=== PATIENT | male | born 1945 | race Caucasian/White ===

== ENCOUNTER 2016-04-27 05:28 | Inpatient (IN) | payer MEDICARE, BC ==
[~2016-04-27] VITALS: Ht 180.3 cm; Wt 100.9 kg
[~2016-04-27 05:28] MED LIST: CHOL20004 PO; CRESTOR5 MG PO; LECI400C PO; LISD50CA2 PO; NITR0.4T SL; OMEG300C PO; SAW100PO MC; TAMS0.4C2 PO; TEST200V3 IM; VITA100T PO
[2016-04-27] MEDS ORDERED: ACETAMINOPHEN 500 MG TABLET PO ONE (06:15)
[2016-04-27] MEDS ORDERED: IV NORMAL SALINE 1000ML BAG 1,000 ML IV SCH ×3 (06:15→13:30)
[2016-04-27] MEDS ORDERED: LIDOCAINE 2% JELLY 6ML IN APPLICATOR. MM ONE (06:30)
[2016-04-27] MEDS: FENTANYL PF 100 MCG/2 ML VIAL. IV PRN ×3 (06:31→20:27)
--- NOTE | 2016-04-27 06:32 | ED.ADGEN ---
Past Medical History Past Medical History: No Pertinent History Past Surgical History: Other Additional Past Surgical Histo: stent Alcohol Use: None Drug Use: None Adult General Chief Complaint Chief Complaint: ABDOMINAL PAIN HPI HPI Patient is a 70 year old man, history of renal calculi, urethral stricture, status post a urethral dilatation last week, who presents emergency Department with complaint of urinary retention and abdominal pain. Patient states that about 4 PM yesterday he began experiencing severe pain in his urethra, has been able to urinate since 4 PM yesterday. He states that he feels as though a stone is stuck in his urethra. He has been experiencing nausea, abdominal distention, abdominal pain, fever to 101.4. Denies any chest pain or shortness of breath, any vomiting, any diarrhea, states that previously he was voiding without issue , before that he had been self cathetering for approximately a month. Procedure was performed by Dr. Venecia Jansen of urology at , he has not yet spoken with her office. Patient has not taking anything yet for fever or pain. Review of Systems Review of Systems Constitutional: Fever and chills since yesterday afternoon. Eyes: Denies change in visual acuity. [] HENT: Denies nasal congestion or sore throat. [] Respiratory: Denies cough or shortness of breath. [] Cardiovascular: Denies chest pain or edema. [] GI: Abdominal pain and distention, nausea, no vomiting, bloody stools or diarrhea. : Unable to pass urine since 4 PM yesterday. Musculoskeletal: Denies back pain or joint pain. [] Integument: Denies rash. [] Neurologic: Denies headache, focal weakness or sensory changes. [] Endocrine: Denies polyuria or polydipsia. [] Lymphatic: Denies swollen glands. [] Psychiatric: Denies depression or anxiety. [] Current Medications Current Medications Current Medications Medications (Trade) Dose Ordered Sig/Nancy Start Time Stop Time Status Last Admin Dose Admin Acetaminophen (Tylenol) 1,000 mg 1X ONCE 04/27/16 06:15 04/27/16 06:16 DC 04/27/16 06:30 1,000 MG Ceftriaxone Sodium (Rocephin 1gm Ivpb For Omni) 50 ml @ 100 mls/hr 1X ONCE 04/27/16 07:30 04/27/16 07:59 DC 04/27/16 08:15 100 MLS/HR Fentanyl Citrate 25 mcg 25 mcg PRN Q15MIN PRN 04/27/16 06:15 04/28/16 06:14 04/27/16 06:31 25 MCG Lidocaine HCl 1 benson 1 benson 1X ONCE 04/27/16 06:30 04/27/16 06:31 DC 04/27/16 06:30 1 BENSON Sodium Chloride (Iv Sodium Chloride 0.9% 1000ml Bag) 1,000 ml @ 1,000 mls/hr Q1H 04/27/16 06:15 04/27/16 07:14 DC 04/27/16 06:49 1,000 MLS/HR Allergies Allergies Allergies Uncoded Allergies Type Severity Reaction Last Updated Verified ERYTHROMYCIN Allergy Intermediate Hives 08/05/14 Physical Exam Physical Exam Constitutional: Well developed, well nourished, is diaphoretic, uncomfortable in appearance. HENT: Normocephalic, atraumatic, bilateral external ears normal, oropharynx moist, no oral exudates, nose normal. [] Eyes: PERRLA, EOMI, conjunctiva normal, no discharge. [] Neck: Normal range of motion, no tenderness, supple, no stridor. [] Cardiovascular:Heart rate regular rhythm, no murmur, S1, S2, no rubs or gallops , mildly tachycardic. [] Lungs & Thorax: Diminished breath sounds at bases bilaterally, no rhonchi, rales or wheezing identified. No chest wall crepitus or tenderness. [] Abdomen: Bowel sounds normal, patient's lower abdomen is firm and distended, with palpable bladder, tenderness to palpation, with examination of the penis, overflow incontinence occurs, no purulent discharge or drainage, no evidence of injury or trauma to the urethra glands are visible portions of the penis, patient is circumcised. No masses, no pulsatile masses. [] Skin: Warm, dry, no erythema, no rash. [] Back: No tenderness, no CVA tenderness. [] Extremities: No tenderness, no cyanosis, no clubbing, ROM intact, no edema. [] Neurologic: Alert and oriented X 3, normal motor function, normal sensory function, no focal deficits noted. [] Psychologic: Affect normal, judgement normal, mood normal. [] Current Patient Data Vital Signs Vital Signs Date Time Temp Pulse Resp B/P Pulse Ox O2 Delivery O2 Flow Rate FiO2 04/27/16 08:30 92 18 126/66 94 Room Air 04/27/16 05:40 101.7 101.7 Lab Values Laboratory Tests Test 04/27/16 05:55 04/27/16 06:00 White Blood Count 16.7x10^3/uL (4.0-11.0) H Red Blood Count 6.49x10^6/uL (4.30-5.70) H Hemoglobin 18.7g/dL (13.0-17.5) H Hematocrit 54.0% (39.0-53.0) H Mean Corpuscular Volume 83fL (79-100) Mean Corpuscular Hemoglobin 29pg (25-35) Mean Corpuscular Hemoglobin Concent 35g/dL (31-37) Red Cell Distribution Width 14.7% (11.5-14.5) H Platelet Count 141x10^3/uL (140-400) Neutrophils (%) (Auto) 91% (31-73) H Lymphocytes (%) (Auto) 1% (24-48) L Monocytes (%) (Auto) 7% (0-9) Eosinophils (%) (Auto) 0% (0-3) Basophils (%) (Auto) 1% (0-3) Neutrophils # (Auto) 15.1x10^3uL (1.8-7.7) H Lymphocytes # (Auto) 0.2x10^3/uL (1.0-4.8) L Monocytes # (Auto) 1.2x10^3/uL (0.0-1.1) H Eosinophils # (Auto) 0.0x10^3/uL (0.0-0.7) Basophils # (Auto) 0.1x10^3/uL (0.0-0.2) Segmented Neutrophils % 93% (35-66) H Lymphocytes % 3% (24-48) L Monocytes % 4% (0-10) Platelet Estimate Increased (ADEQUATE) Sodium Level 140mmol/L (136-145) Potassium Level 4.0mmol/L (3.5-5.1) Chloride Level 102mmol/L (98-107) Carbon Dioxide Level 25mmol/L (21-32) Anion Gap 13 (6-14) Blood Urea Nitrogen 25mg/dL (8-26) Creatinine 1.2mg/dL (0.7-1.3) Estimated GFR (Cockcroft-Gault) 60.0 BUN/Creatinine Ratio 21 (6-20) H Glucose Level 241mg/dL (70-99) H Calcium Level 9.3mg/dL (8.5-10.1) Total Bilirubin 1.0mg/dL (0.2-1.0) Aspartate Amino Transferase (AST) 44U/L (15-37) H Alanine Aminotransferase (ALT) 57U/L (16-63) Alkaline Phosphatase 78U/L (46-116) Total Protein 7.5g/dL (6.4-8.2) Albumin 4.0g/dL (3.4-5.0) Albumin/Globulin Ratio 1.1 (1.0-1.7) Urine Collection Type Unknown Urine Color Yellow Urine Clarity Cloudy Urine pH 7.0 Urine Specific [place] 1.020 Urine Protein 30mg/dL (NEG-TRACE) Urine Glucose (UA) 500mg/dL (NEG) Urine Ketones (Stick) Negativemg/dL (NEG) Urine Blood Large (NEG) Urine Nitrite Negative (NEG) Urine Bilirubin Negative (NEG) Urine Urobilinogen Dipstick 0.2mg/dL (0.2 mg/dL) Urine Leukocyte Esterase Large (NEG) Urine RBC 20-40/HPF (0-2) Urine WBC 20-40/HPF (0-4) Urine Squamous Epithelial Cells None/LPF Urine Bacteria Many/HPF (0-FEW) Laboratory Tests 04/27/16 05:55 Laboratory Tests 04/27/16 05:55 EKG EKG ECG: Sinus rhythm, heart rate 89 bpm, no ectopy. As interpreted by me. Radiology/Procedures Radiology/Procedures [] [facility] [address] [place] [address] IMAGING REPORT Signed PATIENT: FATOUMATA AMATO ACCOUNT: [id number] : 1945 LOCATION: ER AGE: 70 SEX: M EXAM STATUS: REG ER ORD. PHYSICIAN: DESEAN PASTOR DO REASON: Abd/flank pain/fever/ urinary retention/hx renal calculi PROCEDURE: ABDOMEN PELVIS WO CONTRAST EXAM: CT abdomen/pelvis without contrast. HISTORY: Abdominal pain, history of renal stones, urinary retention. TECHNIQUE: Computed tomography of the abdomen and pelvis was performed without intravenous contrast. COMPARISON: 11/27/2012. FINDINGS: Lung windows through the visualized portions of the bases reveal mild centrilobular emphysema. There is calcified granuloma in the lingula. There are atherosclerotic calcifications of the coronary arteries. Bone windows reveal no suspicious lesions. A cyst at the lower pole left kidney measures 15 mm. There is a 4 mm calculus in the left renal lower pole. There are no ureteral calculi or hydronephrosis. The bladder contains a Oleary catheter. The prostate is mildly enlarged for patient age. The appendix is not inflamed. A small umbilical hernia contains only fat. There is no obstruction. There are no pathologically enlarged lymph nodes. The liver, spleen and adrenal glands are unremarkable. Scattered calcifications in the pancreatic parenchyma indicate chronic pancreatitis. The pancreatic duct does not appear dilated. There is dense material at the gallbladder fundus. There is no pericholecystic inflammation. IMPRESSION: 1. 4 mm left renal calculus. No ureteral calculi. 2. Dense material at the gallbladder fundus. This may be cholelithiasis or sludge. Sonography could further differentiate if there is persistent concern. 3. Changes of chronic pancreatitis. 4. Small umbilical hernia containing only fat. 5. At least mild centrilobular emphysema in the lung bases. *One or more of the following individualized dose reduction techniques were utilized for this examination: 1. Automated exposure control. 2. Adjustment of the mA and/or kV according to patient size. 3. Use of iterative reconstruction technique. DICTATED and SIGNED BY: JAKE PETERSON MD DATE: 04/27/16 0742 CC: DESEAN PASTOR DO; GO TY ~ Course & Med Decision Making Course & Med Decision Making Pertinent Labs and Imaging studies reviewed. (See chart for details) Urojet injected, patient's Oleary catheter placed without issue in the ED, more than 500 out in the first 40 minutes. Urinalysis reveals 20-40 wbc's and rbc's and many bacteria. Leukocytosis noted with a white count of 16.7, noted to have elevated glucose at 241, patient has no history of diabetes, no evidence of acidosis or renal insufficiency. Did discuss findings as above patient, was initiated on ceftriaxone in the emergency department. I did attempt to speak with the patient's urologist, Dr. Jansen, however she is currently out of the area, and is being covered by Dr. Boyle of urology. He did not have access to records at this time. I did discuss the patient's stated history, and current presentation, at this point there does not appear any indication for transfer or other intervention at this time, we'll admit the patient to [facility] for continued IV antibiotics and monitoring, now there is resolution of the urinary retention, I believe that the leukocytosis should clear promptly, ceftriaxone is being administered this time. Dr. Guzman has no additional recommendations at this point. Patient is agreeable plan for admission to [facility], is now resting much more comfortably, heart rate is in the 80s, blood pressure 120s to 130s over 60s and 70s. Findings as above discussed with Dr. Lew of internal medicine, patient accepted to his service as a full admission to the medical surgical floor, consultation for urology placed to his request along with bridge orders. Dragon Disclaimer Dragon Disclaimer This electronic medical record was generated, in whole or in part, using a voice recognition dictation system. Departure Impression: Primary Impression: Pyelonephritis Disposition: ADMITTED INPATIENT Admitting Physician: Juwan Lew Condition: IMPROVED DESEAN PASTOR DO Apr 27, 2016 06:32
[2016-04-27 06:38] LABS: BASO # 0.1 x10^3/uL (0.0-0.2); BASO % 1 % (0-3); EOS % 0 % (0-3); HEMOGLOBIN 18.7 g/dL (13.0-17.5); LYMPH # 0.2 x10^3/uL (1.0-4.8); LYMPH % 1 % (24-48); MEAN CORPUSCULAR HEMOGLOBIN 29 pg (25-35); MEAN CORPUSCULAR HGB CONC 35 g/dL (31-37); MEAN CORPUSCULAR VOLUME 83 fL (79-100); MONO % 7 % (0-9); NEUT % 91 % (31-73); PLATELET COUNT 141 x10^3/uL (140-400); RED BLOOD COUNT 6.49 x10^6/uL (4.30-5.70); RED CELL DISTRIBUTION WIDTH 14.7 % (11.5-14.5); WHITE BLOOD COUNT 16.7 x10^3/uL (4.0-11.0)
[2016-04-27 06:42] LABS: CALCIUM 9.3 mg/dL (8.5-10.1); CREATININE 1.2 mg/dL (0.7-1.3)
[2016-04-27 06:47] LABS: ALBUMIN/GLOBULIN RATIO 1.1 (1.0-1.7); TOTAL PROTEIN 7.5 g/dL (6.4-8.2)
[2016-04-27 07:18] LABS: BILIRUBIN,URINE NEGATIVE (NEG); GLUCOSE,URINE 500 mg/dL (NEG); NITRITE,URINE NEGATIVE (NEG); PROTEIN,URINE 30 mg/dL (NEG-TRACE); UROBILINOGEN,URINE 0.2 mg/dL (0.2 mg/dL)
[2016-04-27 07:28] LABS: RBC,URINE 20-40 /HPF (0-2)
[2016-04-27 07:29] LABS: BACTERIA,URINE MANY /HPF (0-FEW); WBC,URINE 20-40 /HPF (0-4)
[2016-04-27] MEDS ORDERED: CEFTRIAXONE 1GM IVPB FOR OMNI 50 ML IV ONE (07:30)
--- NOTE | 2016-04-27 07:51 | RAD ---
EXAM: CT abdomen/pelvis without contrast. HISTORY: Abdominal pain, history of renal stones, urinary retention. TECHNIQUE: Computed tomography of the abdomen and pelvis was performed without intravenous contrast. COMPARISON: 11/27/2012. FINDINGS: Lung windows through the visualized portions of the bases reveal mild centrilobular emphysema. There is calcified granuloma in the lingula. There are atherosclerotic calcifications of the coronary arteries. Bone windows reveal no suspicious lesions. A cyst at the lower pole left kidney measures 15 mm. There is a 4 mm calculus in the left renal lower pole. There are no ureteral calculi or hydronephrosis. The bladder contains a Oleary catheter. The prostate is mildly enlarged for patient age. The appendix is not inflamed. A small umbilical hernia contains only fat. There is no obstruction. There are no pathologically enlarged lymph nodes. The liver, spleen and adrenal glands are unremarkable. Scattered calcifications in the pancreatic parenchyma indicate chronic pancreatitis. The pancreatic duct does not appear dilated. There is dense material at the gallbladder fundus. There is no pericholecystic inflammation. IMPRESSION: 1. 4 mm left renal calculus. No ureteral calculi. 2. Dense material at the gallbladder fundus. This may be cholelithiasis or sludge. Sonography could further differentiate if there is persistent concern. 3. Changes of chronic pancreatitis. 4. Small umbilical hernia containing only fat. 5. At least mild centrilobular emphysema in the lung bases. *One or more of the following individualized dose reduction techniques were utilized for this examination: 1. Automated exposure control. 2. Adjustment of the mA and/or kV according to patient size. 3. Use of iterative reconstruction technique.
[2016-04-27 07:57] LABS: PLT ESTIMATE INCREASED (ADEQUATE)
[2016-04-27] MEDS ORDERED: MORPHINE SULFATE 4 MG/ML DISP.SYRIN. IV PRN (09:45)
[2016-04-27] MEDS ORDERED: ACETAMINOPHEN 325 MG TABLET. PO PRN ×2 (09:45→16:00)
[2016-04-27] MEDS ORDERED: ONDANSETRON PF 4 MG/2 ML VIAL. IV PRN ×2 (09:45→16:00)
--- NOTE | 2016-04-27 14:20 | PDOC2 ---
GI CONSULT Reason For Consult: Abdominal pain HPI: HPI: 70 y/o male admitted through the ER where he was evaluated for urinary retention and fever. H/o urethral dilation at [facility] in 02/2016. Reports suprapubic discomfort and inability to urinate since 4:00 p.m. yesterday, relieved w/ catheter in ER. Labs significant for WBC 16.7 and UA w/ blood and WBCs. CT w/o contrast showed 4 mm left renal calculus, dense material at the gallbladder fundus (cholelithiasis or sludge), changes of chronic pancreatitis, small umbilical hernia containing only fat, and mild emphysema in the lung bases. Admitted on IV Rocephin, urology consult requested. GI consult requested for abd pain. GI history significant for GERD and Nunez's esophagus w/ last EGD in 08/2014. He takes omeprazole QD w/ rare breakthrough heartburn although he did have some during the night recently. Some issues w/ occasional constipation (in fact took Fleets enema prior to coming to ER in hopes of relieving some suprapubic discomfort). Colonoscopy reportedly normal in 2014 as well (unable to view procedure report). Occasionally has a RUQ/right-sided "ache" (specifies "not pain") that occurs randomly; he has previously attributed this to "liver pain." Additional h/o Hep C s/p Harvoni treatment w/ undetectable viral load. Denies previous pancreatitis but did used to drink significantly. Currently denies abdominal pain. Has some suprapubic discomfort that is much less bothersome now. No n/v, weight loss, change in appetite, diarrhea, hematochezia/melena. Occasionally has flank pain (occurs bilaterally). PMH: PMH: Nunez's esophagus/GERD, Hep C s/p Harvoni tx w/ undetectable viral load, constipation, CAD s/p stent, angina, BPH, back pain, HLD, pneumothorax, liver biopsy (2015: chronic hepatitis, moderate spotty lobular necroinflammatory activity and early bridging septal fibrosis, grade 3/4, steatosis), umbilical hernia repair w/ mesh, urethral dilation FH: Family History: No pertinent hx Social History: Smoke: <1 pack per day ALCOHOL: other (currently drinks once monthly or less (2-4 beers), previously drank more frequently) Drugs: None ROS: GEN: +fevers HEENT: Denies blurred vision, sore throat CV: Denies chest pain RESP: Denies shortness of air, cough GI: Per HPI : +urinary retention ENDO: Denies weight changes NEURO: Denies confusion, dizziness MSK: Denies weakness, joint pain/swelling SKIN: Denies jaundice, pruritus VItals: Vitals: Vital Signs Date Time Temp Pulse Resp B/P Pulse Ox O2 Delivery O2 Flow Rate FiO2 04/27/16 12:46 20 97 Room Air 04/27/16 09:40 94 117/73 04/27/16 05:40 101.7 101.7 Labs: Labs: Laboratory Tests Test 04/27/16 05:55 04/27/16 06:00 White Blood Count 16.7x10^3/uL (4.0-11.0) Red Blood Count 6.49x10^6/uL (4.30-5.70) Hemoglobin 18.7g/dL (13.0-17.5) Hematocrit 54.0% (39.0-53.0) Mean Corpuscular Volume 83fL (79-100) Mean Corpuscular Hemoglobin 29pg (25-35) Mean Corpuscular Hemoglobin Concent 35g/dL (31-37) Red Cell Distribution Width 14.7% (11.5-14.5) Platelet Count 141x10^3/uL (140-400) Neutrophils (%) (Auto) 91% (31-73) Lymphocytes (%) (Auto) 1% (24-48) Monocytes (%) (Auto) 7% (0-9) Eosinophils (%) (Auto) 0% (0-3) Basophils (%) (Auto) 1% (0-3) Neutrophils # (Auto) 15.1x10^3uL (1.8-7.7) Lymphocytes # (Auto) 0.2x10^3/uL (1.0-4.8) Monocytes # (Auto) 1.2x10^3/uL (0.0-1.1) Eosinophils # (Auto) 0.0x10^3/uL (0.0-0.7) Basophils # (Auto) 0.1x10^3/uL (0.0-0.2) Segmented Neutrophils % 93% (35-66) Lymphocytes % 3% (24-48) Monocytes % 4% (0-10) Platelet Estimate Increased (ADEQUATE) Sodium Level 140mmol/L (136-145) Potassium Level 4.0mmol/L (3.5-5.1) Chloride Level 102mmol/L (98-107) Carbon Dioxide Level 25mmol/L (21-32) Anion Gap 13 (6-14) Blood Urea Nitrogen 25mg/dL (8-26) Creatinine 1.2mg/dL (0.7-1.3) Estimated GFR (Cockcroft-Gault) 60.0 BUN/Creatinine Ratio 21 (6-20) Glucose Level 241mg/dL (70-99) Calcium Level 9.3mg/dL (8.5-10.1) Total Bilirubin 1.0mg/dL (0.2-1.0) Aspartate Amino Transf (AST/SGOT) 44U/L (15-37) Alanine Aminotransferase (ALT/SGPT) 57U/L (16-63) Alkaline Phosphatase 78U/L (46-116) Total Protein 7.5g/dL (6.4-8.2) Albumin 4.0g/dL (3.4-5.0) Albumin/Globulin Ratio 1.1 (1.0-1.7) Urine Collection Type Unknown Urine Color Yellow Urine Clarity Cloudy Urine pH 7.0 Urine Specific [place] 1.020 Urine Protein 30mg/dL (NEG-TRACE) Urine Glucose (UA) 500mg/dL (NEG) Urine Ketones (Stick) Negativemg/dL (NEG) Urine Blood Large (NEG) Urine Nitrite Negative (NEG) Urine Bilirubin Negative (NEG) Urine Urobilinogen Dipstick 0.2mg/dL (0.2 mg/dL) Urine Leukocyte Esterase Large (NEG) Urine RBC 20-40/HPF (0-2) Urine WBC 20-40/HPF (0-4) Urine Squamous Epithelial Cells None/LPF Urine Bacteria Many/HPF (0-FEW) Allergies: Coded Allergies: erythromycin base (Verified Allergy, Intermediate, Hives, 04/27/16) Medications: Current Medications Medications (Trade) Dose Ordered Sig/Nancy Route PRN Reason Start Time Stop Time Status Last Admin Dose Admin Fentanyl Citrate 25 mcg 25 mcg PRN Q15MIN PRN IV PAIN GREATER THAN 3/10 04/27/16 06:15 04/28/16 06:14 04/27/16 12:46 Sodium Chloride (Iv Sodium Chloride 0.9% 1000ml Bag) 1,000 ml @ 1,000 mls/hr Q1H IV 04/27/16 06:15 04/27/16 07:14 DC 04/27/16 06:49 Acetaminophen (Tylenol) 1,000 mg 1X ONCE PO 04/27/16 06:15 04/27/16 06:16 DC 04/27/16 06:30 Lidocaine HCl 1 benson 1 benson 1X ONCE MM 04/27/16 06:30 04/27/16 06:31 DC 04/27/16 06:30 Ceftriaxone Sodium (Rocephin 1gm Ivpb For Omni) 50 ml @ 100 mls/hr 1X ONCE IV 04/27/16 07:30 04/27/16 07:59 DC 04/27/16 08:15 Imaging: Imaging: CT A/P w/o contrast 04/27/16 IMPRESSION: 1. 4 mm left renal calculus. No ureteral calculi. 2. Dense material at the gallbladder fundus. This may be cholelithiasis or sludge. Sonography could further differentiate if there is persistent concern. 3. Changes of chronic pancreatitis. 4. Small umbilical hernia containing only fat. 5. At least mild centrilobular emphysema in the lung bases. PE: GEN: NAD, pleasant, talkative HEENT: Atraumatic, PERRL LUNGS: CTAB anteriorly HEART: RRR ABD: soft, non-tender, BS+, ?distended EXTREMITY: No edema SKIN: No rashes, no jaundice NEURO/PSYCH: A & O 3 A/P: A/P: Urinary retention, leukocytosis, fever, suprapubic pain -on IV Rocephin, urology consulted -pain improved w/ catheter Abnormal CT A/P -density in GB fundus (cholelithiasis or sludge), chronic pancreatitis -reports random right-sided ache -h/o significant alcohol consumption, less so now H/o GERD, Nunez's -on PPI at home w/ rare breakthrough heartburn H/o Hep C, treated CRC screen -normal colonoscopy 2014 -- Await urologic workup. Note currently NPO, but would restart PPI QD w/ eating. Doesn't seem to have significant GB symptoms. HIREN ZAMUDIO Apr 27, 2016 14:20
[2016-04-27 15:00] VITALS: BP 149/57
[2016-04-27] MEDS ORDERED: DEXTROSE 50% 25 GM / 50ML DISP.SYRIN. IV PRN (16:00)
[2016-04-27] MEDS ORDERED: hydrALAZINE 20 MG/ML VIAL. IVP PRN (16:00)
[2016-04-27] MEDS ORDERED: HYDROCODONE/APAP 5/325MG TABLET. PO PRN (16:00)
[2016-04-27] MEDS ORDERED: ALBUTEROL SULFATE 2.5 MG/3 ML NEBU. NEB PRN (16:00)
[2016-04-27] MEDS ORDERED: CEFTRIAXONE SODIUM 1 GM in IV NORMAL SALINE 50ML 50 ML IV SCH (16:00)
--- NOTE | 2016-04-27 16:04 | PDOC1 ---
History and Physical Social History Smoke: <1 pack per day ALCOHOL: other (currently drinks once monthly or less (2-4 beers), previously drank more frequently) Drugs: None Current Problem List Problem List Problems Medical Problems: (1) Pyelonephritis Status: Acute Current Medications Current Medications Current Medications Medications (Trade) Dose Ordered Sig/Nancy Start Time Stop Time Status Last Admin Dose Admin Acetaminophen (Tylenol) 650 mg PRN Q4HRS PRN 04/27/16 09:45 04/28/16 09:44 Ceftriaxone Sodium/Sodium Chloride (Rocephin/Iv Sodium Chloride 0.9% 50ml) 50 ml @ 100 mls/hr Q24H 04/28/16 08:00 Ceftriaxone Sodium 50 ml @ 100 mls/hr 1X ONCE 04/27/16 07:30 04/27/16 07:59 DC 04/27/16 08:15 100 MLS/HR Fentanyl Citrate (Fentanyl 2ml Vial) 25 mcg PRN Q15MIN PRN 04/27/16 06:15 04/28/16 06:14 04/27/16 12:46 25 MCG Fentanyl Citrate 25 mcg 25 mcg PRN Q2HR PRN 04/27/16 13:30 Lidocaine HCl 1 benson 1 benson 1X ONCE 04/27/16 06:30 04/27/16 06:31 DC 04/27/16 06:30 1 BENSON Morphine Sulfate 4 mg PRN Q2HR PRN 04/27/16 09:45 04/28/16 09:44 Ondansetron HCl (Zofran) 4 mg PRN Q8HRS PRN 04/27/16 09:45 04/28/16 09:44 Sodium Chloride (Iv Sodium Chloride 0.9% 1000ml Bag) 1,000 ml @ 75 mls/hr [id number] 04/27/16 13:30 Allergies Allergies Allergies Coded Allergies Type Severity Reaction Last Updated Verified erythromycin base Allergy Intermediate Hives 04/27/16 Yes ROS Review of System CONSTITUTIONAL: No fever or chills EYES: No recent changes SKIN: No rash or itching CARDIOVASCULAR: No chest pain, syncope, palpitations, or edema RESPIRATORY: No SOB or cough GASTROINTESTINAL: abdominal pain NEUROLOGICAL: No headaches or weakness ENDOCRINE: No cold or heat intolerance GENITOURINARY: No urgency or frequency of urination MUSCULOSKELETAL: No back pain or joint pain LYMPHATICS: No enlarged lymph nodes PSYCHIATRIC: No anxiety or depression Physical Exam Physical Exam GEN.: No apparent distress. Alert and oriented. HEENT: Head is normocephalic, atraumatic NECK: Supple. no jvd LUNGS: Clear to auscultation. normal air flow HEART: RRR, S1, S2 present. Peripheral pulses intact ABDOMEN: Soft, nontender. Positive bowel sounds. EXTREMITIES: Without any cyanosis. NEUROLOGIC: Normal speech, normal tone PSYCHIATRIC: Normal affect, normal mood. SKIN: No visible ulceration. Vitals Vitals Vital Signs Date Time Temp Pulse Resp B/P Pulse Ox O2 Delivery O2 Flow Rate FiO2 04/27/16 12:46 20 97 Room Air 04/27/16 09:40 94 117/73 04/27/16 05:40 101.7 101.7 Labs Labs Laboratory Tests Test 04/27/16 05:55 04/27/16 06:00 White Blood Count 16.7x10^3/uL (4.0-11.0) Red Blood Count 6.49x10^6/uL (4.30-5.70) Hemoglobin 18.7g/dL (13.0-17.5) Hematocrit 54.0% (39.0-53.0) Mean Corpuscular Volume 83fL (79-100) Mean Corpuscular Hemoglobin 29pg (25-35) Mean Corpuscular Hemoglobin Concent 35g/dL (31-37) Red Cell Distribution Width 14.7% (11.5-14.5) Platelet Count 141x10^3/uL (140-400) Neutrophils (%) (Auto) 91% (31-73) Lymphocytes (%) (Auto) 1% (24-48) Monocytes (%) (Auto) 7% (0-9) Eosinophils (%) (Auto) 0% (0-3) Basophils (%) (Auto) 1% (0-3) Neutrophils # (Auto) 15.1x10^3uL (1.8-7.7) Lymphocytes # (Auto) 0.2x10^3/uL (1.0-4.8) Monocytes # (Auto) 1.2x10^3/uL (0.0-1.1) Eosinophils # (Auto) 0.0x10^3/uL (0.0-0.7) Basophils # (Auto) 0.1x10^3/uL (0.0-0.2) Segmented Neutrophils % 93% (35-66) Lymphocytes % 3% (24-48) Monocytes % 4% (0-10) Platelet Estimate Increased (ADEQUATE) Sodium Level 140mmol/L (136-145) Potassium Level 4.0mmol/L (3.5-5.1) Chloride Level 102mmol/L (98-107) Carbon Dioxide Level 25mmol/L (21-32) Anion Gap 13 (6-14) Blood Urea Nitrogen 25mg/dL (8-26) Creatinine 1.2mg/dL (0.7-1.3) Estimated GFR (Cockcroft-Gault) 60.0 BUN/Creatinine Ratio 21 (6-20) Glucose Level 241mg/dL (70-99) Calcium Level 9.3mg/dL (8.5-10.1) Total Bilirubin 1.0mg/dL (0.2-1.0) Aspartate Amino Transf (AST/SGOT) 44U/L (15-37) Alanine Aminotransferase (ALT/SGPT) 57U/L (16-63) Alkaline Phosphatase 78U/L (46-116) Total Protein 7.5g/dL (6.4-8.2) Albumin 4.0g/dL (3.4-5.0) Albumin/Globulin Ratio 1.1 (1.0-1.7) Urine Collection Type Unknown Urine Color Yellow Urine Clarity Cloudy Urine pH 7.0 Urine Specific Tutor [place] 1.020 Urine Protein 30mg/dL (NEG-TRACE) Urine Glucose (UA) 500mg/dL (NEG) Urine Ketones (Stick) Negativemg/dL (NEG) Urine Blood Large (NEG) Urine Nitrite Negative (NEG) Urine Bilirubin Negative (NEG) Urine Urobilinogen Dipstick 0.2mg/dL (0.2 mg/dL) Urine Leukocyte Esterase Large (NEG) Urine RBC 20-40/HPF (0-2) Urine WBC 20-40/HPF (0-4) Urine Squamous Epithelial Cells None/LPF Urine Bacteria Many/HPF (0-FEW) Laboratory Tests Test 04/27/16 05:55 04/27/16 06:00 White Blood Count 16.7x10^3/uL (4.0-11.0) Red Blood Count 6.49x10^6/uL (4.30-5.70) Hemoglobin 18.7g/dL (13.0-17.5) Hematocrit 54.0% (39.0-53.0) Mean Corpuscular Volume 83fL (79-100) Mean Corpuscular Hemoglobin 29pg (25-35) Mean Corpuscular Hemoglobin Concent 35g/dL (31-37) Red Cell Distribution Width 14.7% (11.5-14.5) Platelet Count 141x10^3/uL (140-400) Neutrophils (%) (Auto) 91% (31-73) Lymphocytes (%) (Auto) 1% (24-48) Monocytes (%) (Auto) 7% (0-9) Eosinophils (%) (Auto) 0% (0-3) Basophils (%) (Auto) 1% (0-3) Neutrophils # (Auto) 15.1x10^3uL (1.8-7.7) Lymphocytes # (Auto) 0.2x10^3/uL (1.0-4.8) Monocytes # (Auto) 1.2x10^3/uL (0.0-1.1) Eosinophils # (Auto) 0.0x10^3/uL (0.0-0.7) Basophils # (Auto) 0.1x10^3/uL (0.0-0.2) Segmented Neutrophils % 93% (35-66) Lymphocytes % 3% (24-48) Monocytes % 4% (0-10) Platelet Estimate Increased (ADEQUATE) Sodium Level 140mmol/L (136-145) Potassium Level 4.0mmol/L (3.5-5.1) Chloride Level 102mmol/L (98-107) Carbon Dioxide Level 25mmol/L (21-32) Anion Gap 13 (6-14) Blood Urea Nitrogen 25mg/dL (8-26) Creatinine 1.2mg/dL (0.7-1.3) Estimated GFR (Cockcroft-Gault) 60.0 BUN/Creatinine Ratio 21 (6-20) Glucose Level 241mg/dL (70-99) Calcium Level 9.3mg/dL (8.5-10.1) Total Bilirubin 1.0mg/dL (0.2-1.0) Aspartate Amino Transf (AST/SGOT) 44U/L (15-37) Alanine Aminotransferase (ALT/SGPT) 57U/L (16-63) Alkaline Phosphatase 78U/L (46-116) Total Protein 7.5g/dL (6.4-8.2) Albumin 4.0g/dL (3.4-5.0) Albumin/Globulin Ratio 1.1 (1.0-1.7) Urine Collection Type Unknown Urine Color Yellow Urine Clarity Cloudy Urine pH 7.0 Urine Specific Tutor [place] 1.020 Urine Protein 30mg/dL (NEG-TRACE) Urine Glucose (UA) 500mg/dL (NEG) Urine Ketones (Stick) Negativemg/dL (NEG) Urine Blood Large (NEG) Urine Nitrite Negative (NEG) Urine Bilirubin Negative (NEG) Urine Urobilinogen Dipstick 0.2mg/dL (0.2 mg/dL) Urine Leukocyte Esterase Large (NEG) Urine RBC 20-40/HPF (0-2) Urine WBC 20-40/HPF (0-4) Urine Squamous Epithelial Cells None/LPF Urine Bacteria Many/HPF (0-FEW) VTE Prophylaxis Ordered VTE Prophylaxis Devices: Yes VTE Pharmacological Prophylaxi: Contraindicated BELA DOTY MD Apr 27, 2016 16:04
[2016-04-27] MEDS: IV NORMAL SALINE 1000ML BAG 1,000 ML IV SCH (16:15)
[2016-04-27] MEDS: INSULIN ASPART 300 UNITS/3 ML INSULN.PEN SQ SCH (17:00)
--- NOTE | 2016-04-27 18:23 | PDOC ---
Provider Note Provider Note Urology: c/c urine retention, UTI Hx: distal urethral stricture, bladder stones Patient examined, chart reviewed. IMPRESSION: -distal urethral stricture -bladder stones -UTI -s/p laser prostatectomy KU 02/17 Suggest: d/c gomez in AM treat UTI for 1 week cystoscopy if fails voiding trial f/u KU to discuss self-dilation daily for urethral stricture KIRK Porter ROY K DO Apr 27, 2016 18:23
[2016-04-27] MEDS ORDERED: ASPI81TA2 PO (18:29)
[2016-04-27] MEDS ORDERED: CRESTOR5 MG PO (18:29)
[2016-04-27] MEDS ORDERED: OMEP20CA9 PO (18:29)
[2016-04-27 19:00] VITALS: BP 135/77
--- NOTE | 2016-04-27 22:29 | HP ---
ADMIT DATE: 04/27/2016 CHIEF COMPLAINT: Abdominal pain. HISTORY OF PRESENT ILLNESS: A 70-year-old male patient with prior history of BPH, renal calculi and ureteral stricture who had a ureteral dilatation at ____ [facility] presented to the ER with complaints of abdominal pain, started yesterday evening around 4 p.m., which is severe, intractable in nature, located in the lower abdomen and also he felt like a stone is passing through and he did see 2 stones pass, however, one is stuck. He could not able to pass. As per his , the patient also developed a temperature spike, around 100.1. Denies any nausea, vomiting or any other complaints, such as sick contacts or travel history. PAST MEDICAL HISTORY: Ureteral stricture, renal stones, BPH, GERD, and hepatitis C. FAMILY HISTORY: Questionable hypertension. PERSONAL HISTORY: Smokes less than 1 pack per day. Alcohol occasionally. No substance abuse. REVIEW OF SYSTEMS: Please see my electronic H and P. PHYSICAL EXAMINATION: Please see my electronic H and P. ALLERGIES: ERYTHROMYCIN BASE. LABORATORY FINDINGS: WBC 16.7, hemoglobin is 18.7, MCV 83, platelets 141, neutrophils 15.1, and segmented 93%. Chemistry, sodium 140, potassium 4.0, chloride 102, carbon dioxide is 25, BUN is ____, creatinine is 1.2, and glucose is 241. Urine pH is 7.0, specific gravity 1.020, protein 30, glucose 500, and ketones negative. Urine blood is large, nitrites negative, bilirubin negative, and leukocyte esterase large. IMAGING STUDIES: CT of the abdomen and pelvis showed 4 mm left renal calculus, no ureteral calculi, dense ____ gallbladder fundus, changes of chronic pancreatitis, small umbilical hernia containing ____. ASSESSMENT AND PLAN: 1. Intractable lower abdominal pain due to renal calculi and ureteral stricture. Possible urinary tract infection. 2. Hyperglycemia, never been diagnosed with diabetes. 3. History of BPH. 4. Leukocytosis. PLAN: 1. He has been admitted for pain control. Currently, the patient is on fentanyl 25-50 mcg q. 2 hours as needed. 2. Oleary catheter has been placed to monitor intake and output. 3. Mild IV hydration, at least 125 mL/hour. 4. Urology has been consulted. 5. GI has been consulted. 6. Clear liquid diet. 7. Home medications reviewed and reconciled. 8. IV Rocephin 1 gram daily. 9. Supportive care. 10. I ordered a hemoglobin A1c. BELA DOTY MD DR: LUCY/meka JOB#: [id number] / [id number]
[2016-04-27 23:00] VITALS: BP 123/60
--- NOTE | 2016-04-28 00:51 | ACF ---
Admission Forms Criteria PYELONEPHRITIS, ACUTE Clinical Indications for Admission to Inpatient Care (Place 'X' for any and all applicable criteria): Admission is indicated for ANY ONE of the following 1,2,3,4,5 [ ]I. Outpatient treatment has failed or is not feasible (eg, multidrug- resistant organism).5 [ ]II. beyond 24 weeks' gestation6 [ ]III. Hemodynamic instability [ ]IV. Immunocompromised state (eg, AIDS, diabetes, sickle cell disease) [X]V. Known renal or urologic abnormalities (eg, indwelling catheter, structural abnormalities, renal calculi, urinary stent, previous urologic surgery) [ ]. Condition that requires drainage procedure, including ANY ONE of the following: [ ]a) Urinary obstruction [ ]b) Pyelitis [ ]c) Pyonephrosis [ ]d) Renal or perinephric abscess [ ]e) Emphysematous pyelonephritis 7 [ ]VII. Inpatient admission required rather than observation care (Also use Pyelonephritis, Acute: Observation Care Criteria as appropriate) because of ANY ONE of the following: [ ]a) High fever or infection requiring inpatient admission as indicated by ANY ONE of [id number] [ ]A. Documented bacteremia [ ]B. Temp>104.9 [id number] (oral) [ ]C. Temp>103.10F (oral) or <96.80F (rectal) that does not respond to all emergency treatment [ ]b) Acute renal failure [ ]c) Other significant finding or clinical condition judged not to be within the scope of observation care [ ]d) IV fluid to replace significant ongoing (eg, for over 24hrs) losses (> 3 L/m2 per day) [ ]e) Other condition,treatment or monitoring requiring inpatient admission The original [facility] content created by [employer] has been revised. The portions of the content which have been revised are identified through the use of italic text or in bold, and [facility] has neither reviewed nor approved the modified material. All other unmodified content is copyright [facility] [employer]. Please see references footnoted in the original [facility] [employer] edition 2016 Admission Criteria Met?: Yes SHMAAR LEONARD Apr 28, 2016 00:51
[2016-04-28] MEDS: IV NORMAL SALINE 1000ML BAG 1,000 ML IV SCH (01:10)
[2016-04-28] MEDS: FENTANYL PF 100 MCG/2 ML VIAL. IV PRN ×4 (01:13→17:31)
[2016-04-28 03:00] VITALS: BP 120/76
[2016-04-28 07:19] LABS: BASO % 0 % (0-3); EOS % 0 % (0-3); HEMATOCRIT 51.4 % (39.0-53.0); HEMOGLOBIN 17.4 g/dL (13.0-17.5); LYMPH # 0.3 x10^3/uL (1.0-4.8); LYMPH % 4 % (24-48); MEAN CORPUSCULAR HEMOGLOBIN 29 pg (25-35); MEAN CORPUSCULAR HGB CONC 34 g/dL (31-37); MEAN CORPUSCULAR VOLUME 85 fL (79-100); MONO % 10 % (0-9); NEUT % 86 % (31-73); PLATELET COUNT 97 x10^3/uL (140-400); RED BLOOD COUNT 6.02 x10^6/uL (4.30-5.70); RED CELL DISTRIBUTION WIDTH 14.7 % (11.5-14.5); WHITE BLOOD COUNT 7.6 x10^3/uL (4.0-11.0)
[2016-04-28 07:39] LABS: CALCIUM 8.7 mg/dL (8.5-10.1); CREATININE 1.1 mg/dL (0.7-1.3); GFR 66.4; POTASSIUM 4.4 mmol/L (3.5-5.1)
[2016-04-28 07:50] VITALS: BP 137/79
[2016-04-28] MEDS: INSULIN ASPART 300 UNITS/3 ML INSULN.PEN SQ SCH ×3 (08:00→17:00)
[2016-04-28] MEDS ORDERED: CEFTRIAXONE SODIUM 1 GM in IV NORMAL SALINE 50ML 50 ML IV SCH (08:00)
[2016-04-28 11:05] VITALS: BP 124/74
--- NOTE | 2016-04-28 12:34 | PDOC ---
PROGRESS NOTES Chief Complaint Chief Complaint 1. Abdominal pain 2. Ureteral stricture 3. Urinary retention 4. History of BPH 5. Renal Calculi 6. History of HCV History of Present Illness History of Present Illness Patient awake, alert and sitting up in bed eating breakfast when seen and examined this AM. Pt states that he is feeling better and would like to go home when possible. Pt's present and at bedside. Pt has Oleary cath in place which will be taken out this morning. ------>Cath taken out and patient urinated about and hour later with minimal pain. VSS- All questions and concerns answered and addressed. Vitals Vitals Vital Signs Date Time Temp Pulse Resp B/P Pulse Ox O2 Delivery O2 Flow Rate FiO2 04/28/16 11:05 99.5 92 18 124/74 97 Room Air 99.5 Physical Exam General: Alert, Oriented X3, Cooperative, No acute distress Heart: Regular rate, Normal S1, Normal S2, No murmurs Lungs: Clear Abdomen: Normal bowel sounds, Soft, No tenderness, No hepatosplenomegaly Extremities: No clubbing, No cyanosis, No edema, Normal pulses Skin: No rashes, No breakdown, No significant lesion Labs LABS Laboratory Tests Test 04/27/16 17:37 04/27/16 20:33 04/28/16 06:55 04/28/16 07:54 Glucose (Fingerstick) 87mg/dL (70-99) 153mg/dL (70-99) 113mg/dL (70-99) White Blood Count 7.6x10^3/uL (4.0-11.0) Red Blood Count 6.02x10^6/uL (4.30-5.70) Hemoglobin 17.4g/dL (13.0-17.5) Hematocrit 51.4% (39.0-53.0) Mean Corpuscular Volume 85fL (79-100) Mean Corpuscular Hemoglobin 29pg (25-35) Mean Corpuscular Hemoglobin Concent 34g/dL (31-37) Red Cell Distribution Width 14.7% (11.5-14.5) Platelet Count 97x10^3/uL (140-400) Neutrophils (%) (Auto) 86% (31-73) Lymphocytes (%) (Auto) 4% (24-48) Monocytes (%) (Auto) 10% (0-9) Eosinophils (%) (Auto) 0% (0-3) Basophils (%) (Auto) 0% (0-3) Neutrophils # (Auto) 6.5x10^3uL (1.8-7.7) Lymphocytes # (Auto) 0.3x10^3/uL (1.0-4.8) Monocytes # (Auto) 0.7x10^3/uL (0.0-1.1) Eosinophils # (Auto) 0.0x10^3/uL (0.0-0.7) Basophils # (Auto) 0.0x10^3/uL (0.0-0.2) Sodium Level 137mmol/L (136-145) Potassium Level 4.4mmol/L (3.5-5.1) Chloride Level 103mmol/L (98-107) Carbon Dioxide Level 26mmol/L (21-32) Anion Gap 8 (6-14) Blood Urea Nitrogen 18mg/dL (8-26) Creatinine 1.1mg/dL (0.7-1.3) Estimated GFR (Cockcroft-Gault) 66.4 Glucose Level 116mg/dL (70-99) Calcium Level 8.7mg/dL (8.5-10.1) Test 04/28/16 11:16 Glucose (Fingerstick) 118mg/dL (70-99) Review of Systems Review of Systems Patient complaint of hunger Patient complaint of fatigue Assessment and Plan Assessmemt and Plan Problems Medical Problems: (1) Pyelonephritis Status: Acute Assessment: 1. Abdominal pain 2. Ureteral stricture 3. Urinary retention 4. History of BPH 5. Renal Calculi 6. History of HCV Plan: Continue to monitor the patient per floor protocol Continue daily labs- CBC, BMP, BUN, and Cr Daily PTOT Appreciate Urology and GI input and recommendations Oleary cath out and patient urinating well Possible DC later today if ok with Urology and GI Continue IV Rocephin- Switch to PO Augmentin Continue PO Narcotics PRN for pain Continue Zofran PRN for nausea Continue IVFs at 75 cc/hr DW RN Problems: Comment Review of Relevant I have reviewed the following items justina (where applicable) has been applied. Labs Laboratory Tests Test 04/27/16 05:55 04/27/16 06:00 04/27/16 17:37 04/27/16 20:33 White Blood Count 16.7x10^3/uL (4.0-11.0) Red Blood Count 6.49x10^6/uL (4.30-5.70) Hemoglobin 18.7g/dL (13.0-17.5) Hematocrit 54.0% (39.0-53.0) Mean Corpuscular Volume 83fL (79-100) Mean Corpuscular Hemoglobin 29pg (25-35) Mean Corpuscular Hemoglobin Concent 35g/dL (31-37) Red Cell Distribution Width 14.7% (11.5-14.5) Platelet Count 141x10^3/uL (140-400) Neutrophils (%) (Auto) 91% (31-73) Lymphocytes (%) (Auto) 1% (24-48) Monocytes (%) (Auto) 7% (0-9) Eosinophils (%) (Auto) 0% (0-3) Basophils (%) (Auto) 1% (0-3) Neutrophils # (Auto) 15.1x10^3uL (1.8-7.7) Lymphocytes # (Auto) 0.2x10^3/uL (1.0-4.8) Monocytes # (Auto) 1.2x10^3/uL (0.0-1.1) Eosinophils # (Auto) 0.0x10^3/uL (0.0-0.7) Basophils # (Auto) 0.1x10^3/uL (0.0-0.2) Segmented Neutrophils % 93% (35-66) Lymphocytes % 3% (24-48) Monocytes % 4% (0-10) Platelet Estimate Increased (ADEQUATE) Sodium Level 140mmol/L (136-145) Potassium Level 4.0mmol/L (3.5-5.1) Chloride Level 102mmol/L (98-107) Carbon Dioxide Level 25mmol/L (21-32) Anion Gap 13 (6-14) Blood Urea Nitrogen 25mg/dL (8-26) Creatinine 1.2mg/dL (0.7-1.3) Estimated GFR (Cockcroft-Gault) 60.0 BUN/Creatinine Ratio 21 (6-20) Glucose Level 241mg/dL (70-99) Hemoglobin A1c 5.8% (4.8-5.6) Calcium Level 9.3mg/dL (8.5-10.1) Total Bilirubin 1.0mg/dL (0.2-1.0) Aspartate Amino Transf (AST/SGOT) 44U/L (15-37) Alanine Aminotransferase (ALT/SGPT) 57U/L (16-63) Alkaline Phosphatase 78U/L (46-116) Total Protein 7.5g/dL (6.4-8.2) Albumin 4.0g/dL (3.4-5.0) Albumin/Globulin Ratio 1.1 (1.0-1.7) Urine Collection Type Unknown Urine Color Yellow Urine Clarity Cloudy Urine pH 7.0 Urine Specific Counce 1.020 Urine Protein 30mg/dL (NEG-TRACE) Urine Glucose (UA) 500mg/dL (NEG) Urine Ketones (Stick) Negativemg/dL (NEG) Urine Blood Large (NEG) Urine Nitrite Negative (NEG) Urine Bilirubin Negative (NEG) Urine Urobilinogen Dipstick 0.2mg/dL (0.2 mg/dL) Urine Leukocyte Esterase Large (NEG) Urine RBC 20-40/HPF (0-2) Urine WBC 20-40/HPF (0-4) Urine Squamous Epithelial Cells None/LPF Urine Bacteria Many/HPF (0-FEW) Glucose (Fingerstick) 87mg/dL (70-99) 153mg/dL (70-99) Test 04/28/16 06:55 04/28/16 07:54 04/28/16 11:16 White Blood Count 7.6x10^3/uL (4.0-11.0) Red Blood Count 6.02x10^6/uL (4.30-5.70) Hemoglobin 17.4g/dL (13.0-17.5) Hematocrit 51.4% (39.0-53.0) Mean Corpuscular Volume 85fL (79-100) Mean Corpuscular Hemoglobin 29pg (25-35) Mean Corpuscular Hemoglobin Concent 34g/dL (31-37) Red Cell Distribution Width 14.7% (11.5-14.5) Platelet Count 97x10^3/uL (140-400) Neutrophils (%) (Auto) 86% (31-73) Lymphocytes (%) (Auto) 4% (24-48) Monocytes (%) (Auto) 10% (0-9) Eosinophils (%) (Auto) 0% (0-3) Basophils (%) (Auto) 0% (0-3) Neutrophils # (Auto) 6.5x10^3uL (1.8-7.7) Lymphocytes # (Auto) 0.3x10^3/uL (1.0-4.8) Monocytes # (Auto) 0.7x10^3/uL (0.0-1.1) Eosinophils # (Auto) 0.0x10^3/uL (0.0-0.7) Basophils # (Auto) 0.0x10^3/uL (0.0-0.2) Sodium Level 137mmol/L (136-145) Potassium Level 4.4mmol/L (3.5-5.1) Chloride Level 103mmol/L (98-107) Carbon Dioxide Level 26mmol/L (21-32) Anion Gap 8 (6-14) Blood Urea Nitrogen 18mg/dL (8-26) Creatinine 1.1mg/dL (0.7-1.3) Estimated GFR (Cockcroft-Gault) 66.4 Glucose Level 116mg/dL (70-99) Calcium Level 8.7mg/dL (8.5-10.1) Glucose (Fingerstick) 113mg/dL (70-99) 118mg/dL (70-99) Laboratory Tests Test 04/27/16 17:37 04/27/16 20:33 04/28/16 06:55 04/28/16 07:54 Glucose (Fingerstick) 87mg/dL (70-99) 153mg/dL (70-99) 113mg/dL (70-99) White Blood Count 7.6x10^3/uL (4.0-11.0) Red Blood Count 6.02x10^6/uL (4.30-5.70) Hemoglobin 17.4g/dL (13.0-17.5) Hematocrit 51.4% (39.0-53.0) Mean Corpuscular Volume 85fL (79-100) Mean Corpuscular Hemoglobin 29pg (25-35) Mean Corpuscular Hemoglobin Concent 34g/dL (31-37) Red Cell Distribution Width 14.7% (11.5-14.5) Platelet Count 97x10^3/uL (140-400) Neutrophils (%) (Auto) 86% (31-73) Lymphocytes (%) (Auto) 4% (24-48) Monocytes (%) (Auto) 10% (0-9) Eosinophils (%) (Auto) 0% (0-3) Basophils (%) (Auto) 0% (0-3) Neutrophils # (Auto) 6.5x10^3uL (1.8-7.7) Lymphocytes # (Auto) 0.3x10^3/uL (1.0-4.8) Monocytes # (Auto) 0.7x10^3/uL (0.0-1.1) Eosinophils # (Auto) 0.0x10^3/uL (0.0-0.7) Basophils # (Auto) 0.0x10^3/uL (0.0-0.2) Sodium Level 137mmol/L (136-145) Potassium Level 4.4mmol/L (3.5-5.1) Chloride Level 103mmol/L (98-107) Carbon Dioxide Level 26mmol/L (21-32) Anion Gap 8 (6-14) Blood Urea Nitrogen 18mg/dL (8-26) Creatinine 1.1mg/dL (0.7-1.3) Estimated GFR (Cockcroft-Gault) 66.4 Glucose Level 116mg/dL (70-99) Calcium Level 8.7mg/dL (8.5-10.1) Test 04/28/16 11:16 Glucose (Fingerstick) 118mg/dL (70-99) Medications Current Medications Fentanyl Citrate 25 mcg 25 mcg PRN Q15MIN PRN IV PAIN GREATER THAN 3/10 Last administered on 04/27/16 12:46; Start 04/27/16 at 06:15; Stop 04/27/16 at 16:47 ; Status DC Sodium Chloride (Iv Sodium Chloride 0.9% 1000ml Bag) 1,000 ml @ 1,000 mls/hr Q1H IV Last administered on 04/27/16 06:49; Start 04/27/16 at 06:15; Stop at 07:14; Status DC Acetaminophen (Tylenol) 1,000 mg 1X ONCE PO Last administered on 04/27/16 06: 30; Start 04/27/16 at 06:15; Stop 04/27/16 at 06:16; Status DC Lidocaine HCl 1 benson 1 benson 1X ONCE MM Last administered on 04/27/16 06:30; Start 04/27/16 at 06:30; Stop 04/27/16 at 06:31; Status DC Ceftriaxone Sodium 50 ml @ 100 mls/hr 1X ONCE IV Last administered on 08:15; Start 04/27/16 at 07:30; Stop 04/27/16 at 07:59; Status DC Ceftriaxone Sodium/Sodium Chloride (Rocephin/Iv Sodium Chloride 0.9% 50ml) 50 ml @ 100 mls/hr Q24H IV ; Start 04/28/16 at 08:00 Ondansetron HCl (Zofran) 4 mg PRN Q8HRS PRN IV NAUSEA/VOMITING; Start 04/27/16 at 09:45; Stop 04/27/16 at 16:47; Status DC Morphine Sulfate 4 mg 4 mg PRN Q2HR PRN IV PAIN; Start 04/27/16 at 09:45; Stop 04/28/16 at 09:44; Status DC Sodium Chloride (Iv Sodium Chloride 0.9% 1000ml Bag) 1,000 ml @ 125 mls/hr Q8H IV ; Start 04/27/16 at 09:44; Stop 04/27/16 at 16:47; Status DC Acetaminophen (Tylenol) 650 mg PRN Q4HRS PRN PO FEVER; Start 04/27/16 at 09:45 ; Stop 04/27/16 at 16:47; Status DC Fentanyl Citrate 25 mcg 25 mcg PRN Q2HR PRN IV PAIN Last administered on 01:13; Start 04/27/16 at 13:30 Sodium Chloride (Iv Sodium Chloride 0.9% 1000ml Bag) 1,000 ml @ 75 mls/hr [id number] IV ; Start 04/27/16 at 13:30; Stop 04/27/16 at 16:48; Status DC Insulin Aspart (Novolog) 0-5 UNITS TIDWMEALS SQ ; Start 04/27/16 at 17:00 Dextrose 12.5 gm PRN Q15MIN PRN IV SEE COMMENTS; Start 04/27/16 at 16:00 Acetaminophen (Tylenol) 325 mg PRN Q6HRS PRN PO MILD PAIN / TEMP Last administered on 04/27/16 21:00; Start 04/27/16 at 16:00 Acetaminophen/ Hydrocodone Bitart (Lortab 5/325) 1 tab PRN Q6HRS PRN PO MODERATE TO SEVERE PAIN; Start 04/27/16 at 16:00 Hydralazine HCl (Apresoline) 10 mg PRN Q4HRS PRN IVP ELEVATED BP, SEE COMMENTS ; Start 04/27/16 at 16:00 Ondansetron HCl (Zofran) 4 mg PRN Q8HRS PRN IV NAUSEA/VOMITING; Start 04/27/16 at 16:00 Albuterol Sulfate 2.5 mg 2.5 mg PRN Q4HRS PRN NEB SHORTNESS OF BREATH; Start at 16:00 Ceftriaxone Sodium 1 gm/ Sodium Chloride 50 ml @ 100 mls/hr Q24H IV ; Start at 16:00; Status UNV Sodium Chloride (Iv Sodium Chloride 0.9% 1000ml Bag) 1,000 ml @ 75 mls/hr [id number] IV Last administered on 04/28/16 01:10; Start 04/27/16 at 16:15 Active Scripts Active Reported Crestor (Rosuvastatin Calcium) 5 Mg Tablet 1 Tab PO TWICE WEEKLY Aspirin 81 Mg Tab.chew 1 Tab PO TWICE WEEKLY Omeprazole 20 Mg Capsule.dr 1 Cap PO DAILY B-100 Complex (Vitamin B Complex 100 No.2) 100 Mg Tablet.er 100 Mg PO Nitrostat (Nitroglycerin) 0.4 Mg Tab.subl 1 Tab SL UD Crestor (Rosuvastatin Calcium) 5 Mg Tablet 1 Tab PO DAILY Fish Oil ([place]-3 Fatty Acids) 300 Mg Capsule 300 Mg PO Vitamin D-3 (Cholecalciferol (Vitamin D3)) 2,000 Unit Capsule 2,000 Unit PO Vyvanse (Lisdexamfetamine Dimesylate) 50 Mg Capsule 1 Cap PO DAILY Testosterone Cypionate 200 Mg/1 Ml Vial 200 Mg IM Vitals/I & O Vital Sign - Last 24 Hours 04/27/16 04/27/16 04/27/16 04/27/16 12:46 15:00 19:00 20:00 Temp 98.2 99.7 98.2 99.7 Pulse 85 108 Resp 18 B/P 149/57 135/77 Pulse Ox 97 97 94 O2 Delivery Room Air Room Air Room Air Room Air 04/27/16 04/27/16 04/28/16 04/28/16 20:27 23:00 01:13 01:43 Temp 99.9 99.9 Pulse 95 Resp 18 B/P 123/60 Pulse Ox 94 O2 Delivery Room Air Room Air Room Air Room Air 04/28/16 04/28/16 04/28/16 04/28/16 03:00 07:50 08:00 11:05 Temp 97.9 99.1 99.5 97.9 99.1 99.5 Pulse 86 77 92 Resp 18 18 18 B/P 120/76 137/79 124/74 Pulse Ox 95 96 97 O2 Delivery Room Air Room Air Room Air Room Air Intake and Output 04/27/16 04/27/16 04/28/16 15:00 23:00 07:00 Intake Total 1050 ml 900 ml Output Total 1300 ml 550 ml 2750 ml Balance -250 ml -550 ml -1850 ml PIETER JOHN III DO Apr 28, 2016 12:34
[2016-04-28 12:45] LABS: PLT ESTIMATE DECREASED (ADEQUATE)
--- NOTE | 2016-04-28 14:26 | PDOC ---
Subjective: Subjective: No GI complaints. Oleary out, ongoing urinary hesitancy and dysuria. Objective: Vital Signs: Vital Signs Date Time Temp Pulse Resp B/P Pulse Ox O2 Delivery O2 Flow Rate FiO2 04/28/16 12:33 97 Room Air 04/28/16 11:05 99.5 92 18 124/74 99.5 Labs: Laboratory Tests Test 04/27/16 17:37 04/27/16 20:33 04/28/16 07:54 04/28/16 11:16 Glucose (Fingerstick) 87mg/dL (70-99) 153mg/dL (70-99) 113mg/dL (70-99) 118mg/dL (70-99) PE: GEN: NAD, eating lunch in chair LUNGS: CTAB HEART: RRR ABD: NABS, S/ND/NT NEURO/PSYCH: A & O 3 A/P: Urinary retention -- Chronic GI issues not concerning at this time. Continue tx per urology. HIREN ZAMUDIO Apr 28, 2016 14:26
[2016-04-28 14:35] VITALS: BP 121/67
--- NOTE | 2016-04-28 21:15 | CONS ---
DATE OF CONSULTATION: 04/27/2016 CHIEF COMPLAINT: Urinary retention, urinary tract infection. HISTORY OF PRESENT ILLNESS: This is a 70-year-old male that presented to the Emergency Room with acute urinary retention. The patient has an interesting urological history. He evidently had a laser prostatectomy at in February 2016. He was also found to have bladder stones at that time. However, some of them were not removed at the time of surgery. The patient postoperatively was found to have a distal urethral stricture. The patient states that he feels one of the small bladder stones became lodged behind this distal stricture and he developed urinary retention. The patient presented to the Emergency Room, a Oleary catheter was placed and greater than 1000 mL of urine was obtained. The patient's urine was found to have numerous bacteria. PAST MEDICAL HISTORY: He denies chronic illnesses. PAST SURGICAL HISTORY: The patient recently underwent a laser prostatectomy at [facility] in 02/2016. Since that time, he has been diagnosed with a distal urethral stricture, which my understanding was that it was recently dilated at . The patient also has a history of bladder stones. ALLERGIES: ERYTHROMYCIN. REVIEW OF SYSTEMS: A 14-point review of systems performed, no significant disease, see HPI. PHYSICAL EXAMINATION: GENERAL DESCRIPTION: A 70-year-old male. He is alert and oriented. He denies any acute pain at this time. ABDOMEN: Soft, nontender. Negative for flank pain bilaterally. No palpable abdominal masses. No suprapubic tenderness. GENITALIA: The patient has indwelling Oleary catheter draining eder colored urine. RECTAL: Not performed. EXTREMITIES: Negative for cyanosis or edema. LABORATORY DATA: On admission, the patient's white blood cell count was elevated at 16.7 and his hemoglobin is 18.7, hematocrit 54, platelet count is adequate. The patient's electrolytes were normal. BUN 25, creatinine 1.2, glucose 241. Urine on admission, eder colored cloudy, large dipstick blood, large leukocytes, 20-40 red blood cells, 20-40 white blood cells, many bacteria. Culture pending. X-RAY STUDIES: A CT scan of abdomen and pelvis without contrast revealed a 4 mm left renal calculus, nonobstructing in nature. The ureters were normal bilaterally. The kidneys were normal bilaterally. The bladder appeared to be normal with a Oleary balloon within the bladder. IMPRESSION: 1. Acute urinary retention. 2. Distal urethral stricture. 3. History of bladder stones. 4. Urinary tract infection. 5. Status post laser prostatectomy at [facility] in 02/2016. SUGGESTIONS: 1. Discontinue the Oleary in the morning for voiding trial. 2. Treat urinary tract infection for a minimum of 1 week. 3. If the patient fails his voiding trial, he will need cystoscopy. 4. He is going to follow up with [facility] to discuss self dilation to keep the distal urethral stricture open. Thank you for the opportunity to participate in evaluation of this patient. SHLOMO BRADLEY DO DR: SAVANNAH/meka JOB#: [id number] / [id number]
--- NOTE | 2016-04-29 16:51 | CONS ---
DATE OF CONSULTATION: 04/28/2016 CHIEF COMPLAINT: Urinary retention. HISTORY OF PRESENT ILLNESS: This is a 70-year-old male with a history of prostate problems. He has a history of BPH and underwent a laser prostatectomy at in February. Since that time, he has had a history of distal urethral stricture and some bladder stones. The patient was initially admitted with urinary retention and a Oleary catheter was placed. The patient's symptoms subsided and, therefore, his Oleary catheter was removed this morning. Initially, he voided satisfactorily, but as the day progressed, he experienced difficulty voiding. He has been on self-intermittent catheterization at home, so he was allowed to try self-intermittent catheterization, but he had a lot of pain and difficulty. He also had some gross hematuria. Therefore, it was felt that he would probably need an indwelling Oleary catheter. The patient ultimately developed retention and Urology was asked to see the patient to place a Oleary catheter. PHYSICAL EXAMINATION: GENERAL DESCRIPTION: A 70-year-old male, alert and oriented, somewhat anxious. ABDOMEN: Soft, nontender, negative for flank pain bilaterally. No palpable abdominal masses. Suprapubic area was palpated. I did not palpate the bladder, did not feel distended. GENITALIA: Normal external genitalia. RECTAL: Not performed. MUSCULOSKELETAL: Negative for cyanosis or edema. DESCRIPTION OF PROCEDURE: The patient was placed in his bed in supine position. Genitalia was prepped and draped in sterile fashion. Lidocaine 2% gel was utilized for local anesthesia. Following that, a well-lubricated 18-English coude catheter was advanced into the urethra. He definitely had a urethral stricture in the distal urethra, which was negotiated. It felt like he had perhaps another strictured area in the mid urethra and the catheter was advanced to that area. There was some resistance at the bladder neck, but eventually a catheter passed into the bladder. A 10 mL balloon was filled and urine was drained from the bladder. It was eder in color. The catheter was then connected to a catheter plug. He tolerated the procedure well. IMPRESSION: 1. Urinary retention. 2. Urethral stricture disease. PLAN: 1. The patient will go home with his Oleary catheter connected to a catheter plug and/or drain bag depending on his preference. 2. Dr. Lozano has sent him home on antibiotics. 3. He is going to follow up with his urologist at next week, who performed his laser prostatectomy. SHLOMO BRADLEY DO DR: SAVANNAH/meka JOB#: [id number] / [id number]
== END 2016-04-28 19:30 | disposition home or self-care (01) | DRG 696 ==
LOC: ER 05:28 → 5 NORTH 09:00
PROVIDERS: ADMIT Internal Medicine; ATTEND Internal Medicine
PROC: 0T9B70Z Drainage of Bladder with Drainage Device, Via Natural or Artificial Opening (ICD-10-PCS; principal; 2016-04-27)
DX: R33.8 Other retention of urine (principal); K86.1 Other chronic pancreatitis; N12 Tubulo-interstitial nephritis, not specified as acute or chronic; N35.9 Urethral stricture, unspecified; B19.20 Unspecified viral hepatitis C without hepatic coma; E78.5 Hyperlipidemia, unspecified; I25.119 Atherosclerotic heart disease of native coronary artery with unspecified angina pectoris; J43.2 Centrilobular emphysema; N20.0 Calculus of kidney; R39.11 Hesitancy of micturition; K21.9 Gastro-esophageal reflux disease without esophagitis; K42.9 Umbilical hernia without obstruction or gangrene; K59.00 Constipation, unspecified; K80.20 Calculus of gallbladder without cholecystitis without obstruction; N21.0 Calculus in bladder; N40.0 Benign prostatic hyperplasia without lower urinary tract symptoms; R31.0 Gross hematuria; Z87.442 Personal history of urinary calculi; Z95.5 Presence of coronary angioplasty implant and graft; Z79.899 Other long term (current) drug therapy
CPT/HCPCS: 36415; 51702; 74176; 80048; 80053; 81001; 82947; 83036; 85007; 85027; 87086; 87186; 96361; 96365; A4314; J0690; J1815; J3010; J7030; 99285-25

== ENCOUNTER 2016-08-04 01:19 | Inpatient (IN) | payer BC, MEDICARE ==
[2016-08-04] VITALS (19 sets, daily range): BP systolic 111–149; BP diastolic 69–95
[~2016-08-04] VITALS: Ht 180.3 cm; Wt 102.6 kg
[~2016-08-04 01:19] MED LIST changes: +ASPI81TA2 PO; +OMEP20CA9 PO
[2016-08-04] MEDS ORDERED: ACETAMINOPHEN 325 MG TABLET. PO PRN ×2 (01:30→02:45)
[2016-08-04] MEDS ORDERED: fentaNYL PF VIAL 100 MCG/2 ML VIAL IV PRN ×2 (01:30)
[2016-08-04] MEDS ORDERED: ONDANSETRON PF 4 MG/2 ML VIAL. IV PRN ×2 (01:30→08:34)
[2016-08-04] MEDS ORDERED: NITROGLYCERIN SUBLINGUAL 0.4 MG BOTTLE OF 25. SL PRN ×3 (01:30→08:45)
--- NOTE | 2016-08-04 01:30 | PHYS DOC ---
Past Medical History Past Medical History: CAD, High Cholesterol Past Surgical History: Other Additional Past Surgical Histo: stent Alcohol Use: None Drug Use: None Adult General Chief Complaint Chief Complaint: CHEST PAIN HPI HPI Patient is a 70 year old male who presents by EMS for STEMI. He has central chest pain that is crushing, constant, nonradiating, associated with diaphoresis and slight dyspnea. States he took nitroglycerin sublingual without relief of symptoms. His symptoms started approximately 30 minutes prior to calling EMS. EMS gave him aspirin and fentanyl IV. Prehospital EKG showed inferior ST elevations with lateral depressions. Symptoms started nonexertional. Denies back pain, cough, hemoptysis, leg pain or swelling, orthopnea, headedness, palpitations, fever or chills. Denies abdominal pain, nausea or vomiting. Review of Systems Review of Systems Constitutional: Denies fever or chills [] Eyes: Denies change in visual acuity, redness, or eye pain [] HENT: Denies nasal congestion or sore throat [] Respiratory: Denies cough [] Cardiovascular: No additional information not addressed in HPI [] GI: Denies abdominal pain, nausea, vomiting, bloody stools or diarrhea [] : Denies dysuria or hematuria [] Musculoskeletal: Denies back pain or joint pain [] Integument: Denies rash or skin lesions [] Neurologic: Denies headache, focal weakness or sensory changes [] Endocrine: Denies polyuria or polydipsia [] Allergies Allergies Allergies Coded Allergies Type Severity Reaction Last Updated Verified erythromycin base Allergy Intermediate Hives 04/27/16 Yes Physical Exam Physical Exam Constitutional: Well developed, well nourished, severe distress, non-toxic appearance. [] HENT: Normocephalic, atraumatic, bilateral external ears normal, oropharynx moist, no oral exudates, nose normal. [] Eyes: PERRLA, EOMI. [] Neck: Normal range of motion, supple. [] Cardiovascular:Heart rate regular rhythm [] Lungs & Thorax: Bilateral breath sounds clear to auscultation [] Abdomen: Bowel sounds normal, soft, no tenderness, no pulsatile masses. [] Skin: Warm, diaphoretic, no erythema, no rash. [] Back: No tenderness, no CVA tenderness. [] Extremities: No tenderness, ROM intact, no edema. [] Neurologic: Alert and oriented X 3, normal motor function, normal sensory function, no focal deficits noted. [] Psychologic: Affect normal, judgement normal, mood normal. [] Current Patient Data Vital Signs Vital Signs Date Time Temp Pulse Resp B/P (MAP) Pulse Ox O2 Delivery O2 Flow Rate FiO2 08/04/16 01:25 20 08/04/16 01:19 97.7 90 151/86 (107) 98 Room Air 97.7 Lab Values Laboratory Tests Test 08/04/16 01:20 White Blood Count 10.4 x10^3/uL (4.0-11.0) Red Blood Count 6.21 x10^6/uL (4.30-5.70) H Hemoglobin 18.1 g/dL (13.0-17.5) H Hematocrit 53.0 % (39.0-53.0) Mean Corpuscular Volume 85 fL (79-100) Mean Corpuscular Hemoglobin 29 pg (25-35) Mean Corpuscular Hemoglobin Concent 34 g/dL (31-37) Red Cell Distribution Width 14.1 % (11.5-14.5) Platelet Count 176 x10^3/uL (140-400) Neutrophils (%) (Auto) 69 % (31-73) Lymphocytes (%) (Auto) 18 % (24-48) L Monocytes (%) (Auto) 9 % (0-9) Eosinophils (%) (Auto) 3 % (0-3) Basophils (%) (Auto) 1 % (0-3) Neutrophils # (Auto) 7.2 x10^3uL (1.8-7.7) Lymphocytes # (Auto) 1.9 x10^3/uL (1.0-4.8) Monocytes # (Auto) 0.9 x10^3/uL (0.0-1.1) Eosinophils # (Auto) 0.3 x10^3/uL (0.0-0.7) Basophils # (Auto) 0.1 x10^3/uL (0.0-0.2) Magnesium Level 2.0 mg/dL (1.8-2.4) LK-Voo-D-Type Natriuretic Peptide 57 pg/mL (0-124) Laboratory Tests 08/04/16 01:20 EKG EKG EKG as interpreted by me as STEMI, normal sinus rhythm, rate 86, ST elevations in inferior leads with depressions in lateral leads, PVC, normal intervals Course & Med Decision Making Course & Med Decision Making Pertinent Labs and Imaging studies reviewed. (See chart for details) Discussed case with Dr. Joel, cardiology, who is going to take [facility]. Discussed case with Dr. Sprague, who will admit. He left ED at 0150. Dragon Disclaimer Dragon Disclaimer This electronic medical record was generated, in whole or in part, using a voice recognition dictation system. Departure Departure Impression: Primary Impression: STEMI (ST elevation myocardial infarction) Disposition: ADMITTED INPATIENT Condition: CRITICAL Referrals: [facility] (PCP) Problem Qualifiers Primary Impression: STEMI (ST elevation myocardial infarction) Involved coronary artery: unspecified coronary artery Qualified Codes: I21.3 - ST elevation (STEMI) myocardial infarction of unspecified site Zahra RODRIGUEZ MD Aug 04, 2016 01:30
[2016-08-04 01:33] LABS: BASO # 0.1 x10^3/uL (0.0-0.2); BASO % 1 % (0-3); EOS % 3 % (0-3); HEMOGLOBIN 18.1 g/dL (13.0-17.5); LYMPH # 1.9 x10^3/uL (1.0-4.8); LYMPH % 18 % (24-48); MEAN CORPUSCULAR HEMOGLOBIN 29 pg (25-35); MEAN CORPUSCULAR HGB CONC 34 g/dL (31-37); MEAN CORPUSCULAR VOLUME 85 fL (79-100); MONO % 9 % (0-9); NEUT % 69 % (31-73); PLATELET COUNT 176 x10^3/uL (140-400); RED BLOOD COUNT 6.21 x10^6/uL (4.30-5.70); RED CELL DISTRIBUTION WIDTH 14.1 % (11.5-14.5); WHITE BLOOD COUNT 10.4 x10^3/uL (4.0-11.0)
[2016-08-04] MEDS ORDERED: HEPARIN for IV BOLUS 10,000 UNIT/10 ML VIAL. ONE ×2 (01:34→01:48)
[2016-08-04] MEDS ORDERED: HEPARIN for IV BOLUS 10,000 UNIT/10 ML VIAL. IV ONE (01:45)
[2016-08-04] MEDS ORDERED: IV NORMAL SALINE 1000ML BAG 1,000 ML IV ONE (01:45)
[2016-08-04] MEDS ORDERED: NITROGLYCERIN 4 MG/20 ML SYRINGE for CATH LAB. ONE ×2 (01:47)
[2016-08-04] MEDS ORDERED: VERAPAMIL 5 MG/2 ML VIAL. ONE (01:47)
[2016-08-04] MEDS ORDERED: fentaNYL PF VIAL 100 MCG/2 ML VIAL ONE ×2 (01:48→02:10)
[2016-08-04] MEDS ORDERED: MIDAZOLAM HCL/PF 2 MG/2 ML VIAL. ONE ×3 (01:48→02:10)
[2016-08-04] MEDS ORDERED: LIDOCAINE 2% 20 ML VIAL. ONE (01:49)
[2016-08-04] MEDS ORDERED: IODIXANOL 320 MG/ML 100 ML VIAL. ONE (01:49)
[2016-08-04 01:54] LABS: POTASSIUM ISTAT 3.7 mmol/L (3.5-5.0)
--- NOTE | 2016-08-04 02:31 | ACF ---
Admission Forms Criteria MYOCARDIAL INFARCTION Clinical Indications for Admission to Inpatient Care (Place 'X' for any and all applicable criteria): Admission is indicated for 1 or more of the following (1)(2)(3)(4): [X ]I. Acute [place] [ ]II. Contraindications and/or Inappropriate clinical situations for Observational Care in patients with Myocardial Infarction, when ANY ONE of the following is required: [ ]a) Patient with High risk of cardiac embolism (e.g, patients with previous cardiac embolism, LVEF < 40%, age >75 and patients with prosthetic valve) 18 [ ]b) Patient with Moderate risk including DM patient, CAD and patient aged 65-75 18 [ ]c) Patient with any change in cardiac biomarker especially troponin should be managed as high risk in an inpatient setting 19 [ ]d) Physician judgement irrespective of ECG and other diagnostic findings 20 [ ]III.General contraindications and/or Inappropriate clinical situations for Observational Care in patients with Myocardial Infarction, when ANY ONE of the following is required: [ ]a) Prediction of prolongation of LOS based on ANY ONE of the following may be considered as a contraindication for observational care 2, 3, 4, 5, 6, 7, 8, 9, 10, 11 [ ]i) Age > 65 yrs. [ ]ii) Patient arriving by ambulance [ ]iii) Patient with high acuity [ ]iv) Patient requiring vital sign monitoring [ ]v) Patient on IV medication [ ]b) Systolic blood pressures greater than or equal to 180mmHg 3,12 [ ]c) Patient with altered mental status including delirium and other alteration of consciousness, (3) [ ]d) Patient whose discharge disposition will be to a nursing home home or rehabilitation home should not be managed in Emergency Department Observation Unit. CMS rule requires 3 days hospital stay before such placement. 3,13 [ ]e) Patient with failure to thrive due to broad array of etiologies 3 ,16,17 [ ]f) Inability to ambulate 3,14 Extended stay beyond goal length of stay may be needed for (1)(18)(20)(24)(25): [ ]a) Hemodynamic instability, persisting symptoms after intensive medical management, or recurring severe, prolonged symptoms [ ]b) Intravascular procedural complications such as acute vessel closure, stent thrombosis, stent malposition, or vessel dissection (26)(27)(28) [ ]c) Extravascular procedural complications such as retroperitoneal hematoma , pericardial effusion, or cardiac tamponade [ ]d) Entry site complications causing bleeding, hematoma or distal ischemia and requiring ongoing monitoring, surgical repair or surgical thrombectomy. Dangerous arrhythmia [ ]e) Complicated percutaneous coronary intervention (e.g., unsuccessful percutaneous coronary intervention or percutaneous coronary intervention of non- [place] vessel) [ ]f) Urgent or emergent surgery for complications of [place] (e.g., ventricular rupture, valvular insufficiency) [ ]g) Surgical revascularization via coronary artery bypass graft [ ]h) Heart failure (e.g., pulmonary edema) [ ]i) Unstable pulmonary comorbidities, including COPD or pneumonia (31) [ ]j) Acute renal failure The original [employer] content created by [employer] has been revised. The portions of the content which have been revised are identified through the use of italic text or in bold, and [facility] [employer] has neither reviewed nor approved the modified material. All other unmodified content is copyright [facility] [employer] Please see references footnoted in the original [facility] [employer] edition 2016 Admission Criteria Met?: Yes JENNIFER GREY Aug 04, 2016 02:31
--- NOTE | 2016-08-04 02:32 | PDOC ---
MODERATE SEDATION ASSESSMENT RISKS/ALTERNATIVES Risks/Alternatives Risks and alternatives of this type of sedation and procedure discussed with: RISK/ALTERNATIVES: Patient H & P ON CHART H & P H & P on chart and reviewed for co-morbid conditions and appropriate labs. H&P ON CHART: Yes STATUS PREG STATUS ASSESSED: N/A MEDS/ALLERGIES REVIEWED Meds/Allergies Reviewed Medications and Allergies including time and route of recently administered narcotics and sedatives. MEDS/ALLERGIES REVIEWED: Yes ASA RATING ASA RATING: II AIRWAY ASSESSMENT Airway Assessment Airway patency, oral function limitations, presence of caps, crowns, dentures, partials, and ability to extend neck assessed. AIRWAY ASSESSMENT: Yes MALLAMPATI SCORE MALLAMPATI SCORE: II PRE-SEDATION ASSESSMENT PRE-SEDATION ASSESSMENT: Yes ACE GRAYSON MD Aug 04, 2016 02:32
[2016-08-04] MEDS ORDERED: IV 1/2 NORMAL SALINE 1,000 ML IV SCH (02:35)
--- NOTE | 2016-08-04 02:35 | PDOC2 ---
CONSULT Date of Consult Date of Consult DATE: 08/04/16 TIME: 02:35 Reason for Consult Reason for Consult: Acute myocardial infarction Referring Physician Referring Physician: Dr. Wallace Reyes Identification/Chief Complaint Chief Complaint Chest pain Source Source: Chart review, Patient History of Present Illness Reason for Visit: 70-year-old male with history of coronary artery disease s/p PCI/stent to LAD 3 years ago at [facility], usually followed by Dr. Fonseca presented with severe retrosternal chest pressure 10/10 severity associated with mild shortness of breath and diaphoresis. He denied any orthopnea/PND, palpitations or syncope. His pain was slightly relieved with sublingual nitroglycerin. Past Medical History Past Medical History Coronary disease s/p PCI/stent to LAD Hypertension Hyperlipidemia Social History No ALCOHOL: other Drugs: None Current Problem List Problem List Problems Medical Problems: (1) STEMI (ST elevation myocardial infarction) Status: Acute Current Medications Current Medications Current Medications Fentanyl Citrate (Fentanyl 2ml Vial) 100 mcg PRN Q15MIN PRN IV PAIN GREATER THAN 3/10 Last administered on 08/04/16 01:40; Start 08/04/16 at 01:30; Stop 08/05 at 01:29 Ondansetron HCl (Zofran) 4 mg PRN Q8HRS PRN IV NAUSEA/VOMITING; Start 08/04/16 at 01:30; Stop 08/05/16 at 01:29 Fentanyl Citrate (Fentanyl 2ml Vial) 50 mcg PRN Q2HR PRN IV PAIN Last administered on 08/04/16 01:25; Start 08/04/16 at 01:30; Stop 08/05/16 at 01:29 Acetaminophen (Tylenol) 650 mg PRN Q4HRS PRN PO FEVER; Start 08/04/16 at 01:30; Stop 08/05/16 at 01:29 Nitroglycerin (Nitrostat) 0.4 mg PRN Q5MIN PRN SL CHEST PAIN; Start 08/04/16 at 01:30; Stop 08/05/16 at 01:29 Heparin Sodium (Porcine) (Heparin Sodium) 10,000 unit STK-MED ONCE .ROUTE ; Start 08/04/16 at 01:34; Stop 08/04/16 at 01:35; Status DC Heparin Sodium (Porcine) (Heparin Sodium) 4,000 unit 1X ONCE IV Last administered on 6/2/17at 01:43; Start 08/04/16 at 01:45; Stop 08/04/16 at 01:46; Status DC Sodium Chloride 1,000 ml @ 1,000 mls/hr 1X ONCE IV Last administered on t 01:45; Start 08/04/16 at 01:45; Stop 08/04/16 at 02:44 Nitroglycerin/ Dextrose (Nitroglycerin) 4 mg STK-MED ONCE .ROUTE ; Start at 01:47; Stop 08/04/16 at 01:48; Status DC Verapamil HCl (Verapamil) 5 mg STK-MED ONCE .ROUTE ; Start 08/04/16 at 01:47; Stop 08/04/16 at 01:48; Status DC Midazolam HCl (Versed) 2 mg STK-MED ONCE .ROUTE ; Start 08/04/16 at 01:48; Stop 08/04/16 at 01:49; Status DC Fentanyl Citrate (Fentanyl 2ml Vial) 100 mcg STK-MED ONCE .ROUTE ; Start at 01:48; Stop 08/04/16 at 01:49; Status DC Heparin Sodium (Porcine) (Heparin Sodium) 10,000 unit STK-MED ONCE .ROUTE ; Start 08/04/16 at 01:48; Stop 08/04/16 at 01:49; Status DC Lidocaine HCl 20 ml STK-MED ONCE .ROUTE ; Start 08/04/16 at 01:49; Stop 08/04/16 at 01:50; Status DC Heparin Sodium/ Sodium Chloride 500 ml @ As Directed STK-MED ONCE .ROUTE ; Start 08/04/16 at 01:49; Stop 08/04/16 at 01:50; Status DC Iodixanol (Visipaque 320) 100 ml STK-MED ONCE .ROUTE ; Start 08/04/16 at 01:49; Stop 08/04/16 at 01:50; Status DC Midazolam HCl (Versed) 2 mg STK-MED ONCE .ROUTE ; Start 08/04/16 at 02:03; Stop 08/04/16 at 02:04; Status DC Midazolam HCl (Versed) 2 mg STK-MED ONCE .ROUTE ; Start 08/04/16 at 02:10; Stop 08/04/16 at 02:11; Status DC Fentanyl Citrate (Fentanyl 2ml Vial) 100 mcg STK-MED ONCE .ROUTE ; Start at 02:10; Stop 08/04/16 at 02:11; Status DC Nitroglycerin (Nitroglycerin) 200 mcg 1X ONCE IART ; Start 08/04/16 at 02:30; Stop 08/04/16 at 02:31; Status UNV Verapamil HCl (Verapamil) 2.5 mg 1X ONCE IART ; Start 08/04/16 at 02:30; Stop at 02:31; Status UNV Heparin Sodium (Porcine) (Heparin Sodium) 2,500 unit 1X ONCE IART ; Start at 02:30; Stop 08/04/16 at 02:31; Status UNV Heparin Sodium/ Sodium Chloride 1,000 unit 1X ONCE IART ; Start 08/04/16 at 02: 30; Stop 08/04/16 at 02:31; Status UNV Midazolam HCl (Versed) 5 mg 1X ONCE IV ; Start 08/04/16 at 02:30; Stop 08/04/16 at 02:31; Status UNV Fentanyl Citrate (Fentanyl 2ml Vial) 150 mcg 1X ONCE IV ; Start 08/04/16 at 02: 30; Stop 08/04/16 at 02:31; Status UNV Iodixanol (Visipaque 320) 111 ml 1X ONCE IART ; Start 08/04/16 at 02:30; Stop at 02:31; Status UNV Bivalirudin (Angiomax) 250 mg 1X ONCE IV ; Start 08/04/16 at 02:13; Stop at 02:14; Status UNV Clopidogrel Bisulfate (Plavix) 600 mg 1X ONCE PO ; Start 08/04/16 at 02:30; Stop 08/04/16 at 02:31; Status UNV Lidocaine HCl 20 ml 1X ONCE IJ ; Start 08/04/16 at 02:30; Stop 08/04/16 at 02:31 ; Status UNV Active Scripts Active Reported Crestor (Rosuvastatin Calcium) 5 Mg Tablet 1 Tab PO TWICE WEEKLY Aspirin 81 Mg Tab.chew 1 Tab PO TWICE WEEKLY Omeprazole 20 Mg Capsule.dr 1 Cap PO DAILY B-100 Complex (Vitamin B Complex 100 No.2) 100 Mg Tablet.er 100 Mg PO Nitrostat (Nitroglycerin) 0.4 Mg Tab.subl 1 Tab SL UD Crestor (Rosuvastatin Calcium) 5 Mg Tablet 1 Tab PO DAILY Fish Oil (Ayr-3 Fatty Acids) 300 Mg Capsule 300 Mg PO Vitamin D-3 (Cholecalciferol (Vitamin D3)) 2,000 Unit Capsule 2,000 Unit PO Vyvanse (Lisdexamfetamine Dimesylate) 50 Mg Capsule 1 Cap PO DAILY Testosterone Cypionate 200 Mg/1 Ml Vial 200 Mg IM Allergies Allergies: Coded Allergies: erythromycin base (Verified Allergy, Intermediate, Hives, 04/27/16) ROS PSYCHOLOGICAL ROS: No: Hallucinations Eyes: No Loss of vision HEENT: No: Epistaxis Respiratory: YES: Shortness of breath, No: Hemoptysis Cardiovascular: yes Chest Pain Gastrointestinal: No Vomiting Genitourinary: No Hematuria Neurological: No Seizures Skin: No Rash Vitals VITALS Vital Signs Date Time Temp Pulse Resp B/P (MAP) Pulse Ox O2 Delivery O2 Flow Rate FiO2 08/04/16 01:40 24 08/04/16 01:19 97.7 90 151/86 (107) 98 Room Air 97.7 Labs Labs Laboratory Tests Test 08/04/16 01:20 08/04/16 01:26 08/04/16 01:29 White Blood Count 10.4 x10^3/uL (4.0-11.0) Red Blood Count 6.21 x10^6/uL (4.30-5.70) Hemoglobin 18.1 g/dL (13.0-17.5) Hematocrit 53.0 % (39.0-53.0) Mean Corpuscular Volume 85 fL (79-100) Mean Corpuscular Hemoglobin 29 pg (25-35) Mean Corpuscular Hemoglobin Concent 34 g/dL (31-37) Red Cell Distribution Width 14.1 % (11.5-14.5) Platelet Count 176 x10^3/uL (140-400) Neutrophils (%) (Auto) 69 % (31-73) Lymphocytes (%) (Auto) 18 % (24-48) Monocytes (%) (Auto) 9 % (0-9) Eosinophils (%) (Auto) 3 % (0-3) Basophils (%) (Auto) 1 % (0-3) Neutrophils # (Auto) 7.2 x10^3uL (1.8-7.7) Lymphocytes # (Auto) 1.9 x10^3/uL (1.0-4.8) Monocytes # (Auto) 0.9 x10^3/uL (0.0-1.1) Eosinophils # (Auto) 0.3 x10^3/uL (0.0-0.7) Basophils # (Auto) 0.1 x10^3/uL (0.0-0.2) Magnesium Level 2.0 mg/dL (1.8-2.4) VO-Sub-U-Type Natriuretic Peptide 57 pg/mL (0-124) Bedside Troponin I 0.02 ng/ml (<0.08) Bedside Hemoglobin 18.0 g/dL (14-18) Bedside Hematocrit 53 % (37-52) Bedside Sodium 138 mmol/L (135-145) Bedside Potassium 3.7 mmol/L (3.5-5.0) Bedside Chloride 101 mmol/L (98-110) Bedside Total CO2 24 mmol/L (23-32) Anion Gap 18 mmol/L (6-14) Bedside Blood Urea Nitrogen 20 mg/dL (8-26) Bedside Creatinine 1.1 mg/dL (0.5-1.4) Glucose Level 234 mg/dL (70-99) Bedside Ionized Calcium (Shanna) 1.08 mmol/L (1.13-1.32) Laboratory Tests Test 08/04/16 01:20 08/04/16 01:26 08/04/16 01:29 White Blood Count 10.4 x10^3/uL (4.0-11.0) Red Blood Count 6.21 x10^6/uL (4.30-5.70) Hemoglobin 18.1 g/dL (13.0-17.5) Hematocrit 53.0 % (39.0-53.0) Mean Corpuscular Volume 85 fL (79-100) Mean Corpuscular Hemoglobin 29 pg (25-35) Mean Corpuscular Hemoglobin Concent 34 g/dL (31-37) Red Cell Distribution Width 14.1 % (11.5-14.5) Platelet Count 176 x10^3/uL (140-400) Neutrophils (%) (Auto) 69 % (31-73) Lymphocytes (%) (Auto) 18 % (24-48) Monocytes (%) (Auto) 9 % (0-9) Eosinophils (%) (Auto) 3 % (0-3) Basophils (%) (Auto) 1 % (0-3) Neutrophils # (Auto) 7.2 x10^3uL (1.8-7.7) Lymphocytes # (Auto) 1.9 x10^3/uL (1.0-4.8) Monocytes # (Auto) 0.9 x10^3/uL (0.0-1.1) Eosinophils # (Auto) 0.3 x10^3/uL (0.0-0.7) Basophils # (Auto) 0.1 x10^3/uL (0.0-0.2) Magnesium Level 2.0 mg/dL (1.8-2.4) TP-Bzt-N-Type Natriuretic Peptide 57 pg/mL (0-124) Bedside Troponin I 0.02 ng/ml (<0.08) Bedside Hemoglobin 18.0 g/dL (14-18) Bedside Hematocrit 53 % (37-52) Bedside Sodium 138 mmol/L (135-145) Bedside Potassium 3.7 mmol/L (3.5-5.0) Bedside Chloride 101 mmol/L (98-110) Bedside Total CO2 24 mmol/L (23-32) Anion Gap 18 mmol/L (6-14) Bedside Blood Urea Nitrogen 20 mg/dL (8-26) Bedside Creatinine 1.1 mg/dL (0.5-1.4) Glucose Level 234 mg/dL (70-99) Bedside Ionized Calcium (Shanna) 1.08 mmol/L (1.13-1.32) Assessment/Plan Assessment/Plan 1. Acute inferior wall ST elevation myocardial infarction: Patient has previous history of coronary artery disease and has undergone PCI/stent placement to LAD 3 years ago. EKG showed sinus rhythm with inferior ST elevations. Patient has severe ongoing chest pain. We will proceed with emergent cardiac catheterization and primary PCI/stent placement. Risks and benefits were explained. Start aspirin, heparin, beta blockers. 2. Hypertension: Controlled 3. Hyperlipidemia: Continue statin therapy Thank you for your consultation CAE GRAYSON MD Aug 04, 2016 02:35
[2016-08-04] MEDS ORDERED: BIVALIRUDIN 250 MG VIAL. IV ONE (02:45)
[2016-08-04] MEDS ORDERED: VERAPAMIL 5 MG/2 ML VIAL. IART ONE (02:45)
[2016-08-04] MEDS ORDERED: MIDAZOLAM HCL/PF 2 MG/2 ML VIAL. IV ONE (02:45)
[2016-08-04] MEDS ORDERED: NITROGLYCERIN 200 MCG/2 ML SYRINGE FOR CATH/VASC LAB. IART ONE (02:45)
[2016-08-04] MEDS ORDERED: CLOPIDOGREL BISULFATE 75 MG TABLET PO ONE (02:45)
[2016-08-04] MEDS ORDERED: LIDOCAINE 2% 20 ML VIAL. IJ ONE (02:45)
[2016-08-04] MEDS ORDERED: HEPARIN for IV BOLUS 10,000 UNIT/10 ML VIAL. IART ONE (02:45)
[2016-08-04] MEDS ORDERED: fentaNYL PF VIAL 100 MCG/2 ML VIAL IV ONE (02:45)
[2016-08-04] MEDS ORDERED: IODIXANOL 320 MG/ML 100 ML VIAL. IART ONE (02:45)
[2016-08-04] MEDS ORDERED: CLOPIDOGREL BISULFATE 75 MG TABLET ONE (02:46)
[2016-08-04] MEDS: VITAMIN B COMPLEX TABLET. PO SCH (09:00)
[2016-08-04] MEDS ORDERED: ATORVASTATIN CALCIUM 20 MG TABLET PO SCH (09:00)
[2016-08-04 09:15] LABS: CHOLESTEROL/HDL RATIO 4.5
--- NOTE | 2016-08-04 09:58 | CARD ---
APPROVED REPORT Procedure(s) performed: 1. Left heart catheterization and selective coronary angiography via right t ransradial approach 2. Successful PCI/drug eluting stent placement to the right coronary artery INDICATION The indication(s) include : Acute inferior wall ST elevation myocardial infarction. PROCEDURE NARRATIVE After explaining the risks, benefits and alternative options, informed consent was obtained from jonathan ent. Patient was brought to the cardiac Developing Machine Tender and right wrist was prepped and draped in the usual fashion after confirming a positive modified Jason's test. Arterial access was obtained in the rig t radial artery and a 6 Indian sheath was inserted. 6 Indian JL 3.5 diagnostic and 6 Indian JR4 guid e catheters were used to perform selective angiography of the left and right coronary arteries. The f ollowing findings were noted. FINDINGS Coronary angiography: a. The left main coronary artery arose from the left sinus of Valsalva, gave rise to the left anteri or descending and left circumflex arteries and did not show any significant stenosis. b. The left anterior descending artery showed widely patent stent in the midsegment. The diagonal br anch showed tandem 40-50% stenoses in the proximal to midsegment c. The left circumflex artery did not show any significant stenosis. d. The right coronary artery was a large and dominant vessel arising from the right sinus of Valsalv a that showed 100% occlusion in the proximal to midsegment. INTERVENTION The right coronary artery was engaged with 6 Indian JR4 guide catheter as stated above. This was cros sed with a 0.014 inch Official Limited Virtual guidewire and dilated with a 2.5 x 12 mm Trek balloon. Subsequen tly, this was treated successfully with a 3.5 x 28 mm xience alpine drug-eluting stent. Follow-up ang iography showed resolution of the stenosis to 0% with LEXY-3 distal flow. Patient tolerated the proce dure well. Hemostasis was achieved using TR band. There were no immediate complications. Conclusion 1. 100% occlusion of the right coronary artery. The previously placed stent in the left anterior ursula cending artery was widely patent. 2. Successful PCI/drug eluting stent placement to the right coronary artery. Recommendations 1. Aspirin 325 mg daily 2. Plavix 75 mg daily for preferably one year 3. Cardiovascular risk factor modification.
[2016-08-04] MEDS ORDERED: POTASSIUM CHLORIDE 20 MEQ TABLET.ER. PO ONE (10:00)
[2016-08-04] MEDS: CHOLECALCIFEROL (VITAMIN D3) 1,000 UNIT TABLET PO SCH (10:08)
[2016-08-04] MEDS: METOPROLOL TART IMMED RELEASE 25 MG TABLET. PO SCH ×2 (10:08→20:42)
[2016-08-04] MEDS: PANTOPRAZOLE 40 MG TABLET.DR. PO SCH (10:08)
[2016-08-04] MEDS: DOCUSATE SODIUM 100 MG CAPSULE. PO SCH (10:09)
[2016-08-04] MEDS: OMEGA-3 FATTY ACIDS/FISH OIL 1,000 MG CAPSULE. PO SCH (10:09)
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
[2016-08-04] MEDS ORDERED: MORPHINE SULFATE 2 MG/ML DISP.SYRIN. IV PRN (10:30)
[2016-08-04] MEDS ORDERED: HYDROcodone/APAP 5/325MG 1 TAB TABLET PO PRN (10:30)
[2016-08-04] MEDS: PSYLLIUM HUSK (SUGAR FREE) 1 PKT PACKET PO SCH (10:30)
--- NOTE | 2016-08-04 10:50 | EKG ---
[facility] [address] [place] [address] Test Date: 2016-08-04 Test Time: 01:21:48 Pat Name: FATOUMATA AMATO Department: Room: 107 1 Gender: M [employer]: : 1945 Requested By: Zahra RODRIGUEZ Order Number: [id number] Reading MD: Pavan Felder Measurements Intervals [place] Rate: 86 P: 36 LA: 182 QRS: 30 QRSD: 126 T: 119 QT: 382 QTc: 460 Interpretive Statements SINUS RHYTHM VENTRICULAR PREMATURE COMPLEX(ES) ATRIAL PREMATURE COMPLEX(ES) NON SPECIFIC INTRAVENTRICULAR BLOCK QRS(T) CONTOUR ABNORMALITY CANNOT RULE OUT ANTEROSEPTAL MYOCARDIAL DAMAGE CONSISTENT WITH INFERIOR INFARCT POSSIBLE ACUTE RI6.01 Unconfirmed report No previous ECG available for comparison Electronically Signed On 08-09-2016 9:27:13 CDT by Pavan Felder
[2016-08-04] MEDS: oxyCODONE/APAP 5/325 1 TAB TABLET PO PRN ×2 (11:04→19:40)
--- NOTE | 2016-08-04 13:46 | CARD ---
APPROVED REPORT EXAM: Two-dimensional and M-mode echocardiogram with Doppler and color Doppler. Other Information Quality : GoodHR: 83bpm Rhythm : NSR INDICATION Acute TN RISK FACTORS Obesity 2D DIMENSIONS RVDd3.3 (2.9-3.5cm)Left Atrium(2D)4.6 (1.6-4.0cm) IVSd1.4 (0.7-1.1cm)Aortic Root(2D)3.5 (2.0-3.7cm) LVDd4.4 (3.9-5.9cm)LVOT Diameter2.5 (1.8-2.4cm) PWd1.4 (0.7-1.1cm)LVDs3.6 (2.5-4.0cm) FS (%) 16.8 %SV30.4 ml LVEF(%)35.3 (>50%) Aortic Valve AoV Peak Reji.146.9cm/sAoV VTI26.7cm AO Peak GR.8.6mmHgLVOT Peak Reji.106.6cm/s AO Mean GR.5mmHgAVA (VMAX)3.48cm2 Mitral Valve MV E Ecrmapdu60.1cm/sMV E Peak Gr.10mmHg MV DECEL [id number] A Weclbivo478.6cm/s MV E Mean Gr.4mmHgE/A Ratio0.5 MV A [id number] Pulmonary Valve PV Peak Ldcavssi227.2cm/s Tricuspid Valve TR P. [id number]/sTR Peak Gr.32mmHg Pulmonary Vein S1 Wvgimeme15.2cm/sD2 Qgledxwb07.3cm/s PVa [id number] LEFT VENTRICLE The left ventricle is normal size. There is mild to moderate concentric left ventricular hypertrophy. Left ventricle systolic function is moderately to severely impaired. The Ejection Fraction is 30-35% . There is moderate to severe global hypokinesis of the left ventricle. Abnormal septal wall motion i s noted. Severe hypokinesis of the inferoseptal and inferior barrett at their basal, mid and apical lev els. Transmitral Doppler flow pattern is Grade I-abnormal relaxation pattern. No left ventricle throm bus noted on this study. RIGHT VENTRICLE The right ventricle is normal size. There is normal right ventricular wall thickness. The right ventr icular systolic function is normal. ATRIA The left atrium is mildly dilated. The right atrium size is normal. The interatrial septum is intact with no evidence for an atrial septal defect or patent foramen ovale as noted on 2-D or Doppler imagi ng. AORTIC VALVE The aortic valve is mildly sclerotic. The aortic valve is trileaflet. Doppler and Color Flow revealed no significant aortic regurgitation. There is no significant aortic valvular stenosis. MITRAL VALVE Mitral annular calcification is mild. The mitral valve leaflets are thickened. There is no evidence o f mitral valve prolapse. There is no mitral valve stenosis. Doppler and Color Flow revealed no mitral valve regurgitation noted. TRICUSPID VALVE Doppler and Color Flow revealed trace tricuspid regurgitation. The pulmonary artery systolic pressure is estimated at 32 mmHg. There is mild pulmonary hypertension. PULMONIC VALVE Doppler and Color Flow revealed no pulmonic valvular regurgitation. There is no pulmonic valvular ayan nosis. GREAT VESSELS The aortic root is normal in size. The ascending aorta is normal in size. The IVC is normal in size a nd collapses >50% with inspiration. PERICARDIAL EFFUSION There is no evidence of significant pericardial effusion. Critical Notification Critical Value: No <Conclusion> Left ventricle systolic function is moderately to severely impaired. The Ejection Fraction is 30-35%. There is moderate to severe global hypokinesis of the left ventricle. Abnormal septal wall motion is noted. Severe hypokinesis of the inferoseptal and inferior barrett at their basal, mid and apical level s.
[2016-08-04] MEDS ORDERED: ATORVASTATIN CALCIUM 40 MG TABLET. PO SCH (21:00)
[2016-08-05 03:22] VITALS: BP 116/71
[2016-08-05] MEDS: oxyCODONE/APAP 5/325 1 TAB TABLET PO PRN (03:34)
[2016-08-05 06:13] LABS: CALCIUM 8.6 mg/dL (8.5-10.1); CREATININE 1.1 mg/dL (0.7-1.3); GFR 66.4
[2016-08-05 07:30] VITALS: BP 111/71
[2016-08-05] MEDS ORDERED: ASPIRIN ENTERIC COATED 325 MG TABLET.DR. PO SCH (08:00)
[2016-08-05] MEDS ORDERED: CLOPIDOGREL BISULFATE 75 MG TABLET PO SCH (08:00)
[2016-08-05] MEDS: METOPROLOL TART IMMED RELEASE 25 MG TABLET. PO SCH (08:44)
[2016-08-05] MEDS: OMEGA-3 FATTY ACIDS/FISH OIL 1,000 MG CAPSULE. PO SCH (08:44)
[2016-08-05] MEDS: DOCUSATE SODIUM 100 MG CAPSULE. PO SCH (08:44)
[2016-08-05] MEDS: PANTOPRAZOLE 40 MG TABLET.DR. PO SCH (08:45)
[2016-08-05] MEDS: VITAMIN B COMPLEX TABLET. PO SCH (08:45)
[2016-08-05] MEDS: PSYLLIUM HUSK (SUGAR FREE) 1 PKT PACKET PO SCH (08:45)
[2016-08-05] MEDS: CHOLECALCIFEROL (VITAMIN D3) 1,000 UNIT TABLET PO SCH (08:45)
--- NOTE | 2016-08-05 10:24 | PDOC ---
SHEN HENRIQUEZ ENVIRONMENTAL COMPLIANCE OFFICER 08/05/16 1024: PROGRESS NOTES Subjective Subjective feels well today. no chest pain, breathing easily. Objective Objective Vital Signs Date Time Temp Pulse Resp B/P (MAP) Pulse Ox O2 Delivery O2 Flow Rate FiO2 08/05/16 08:44 61 111/71 08/05/16 08:00 Room Air 08/05/16 07:30 97.7 20 95 97.7 08/04/16 02:40 2.0 Intake and Output 08/05/16 07:00 Intake Total 1240 ml Balance 1240 ml Intake Oral 1240 ml # Voids 3 Physical Exam Abdomen: Normal bowel sounds, Soft, No tenderness Heart: Normal S1, Normal S2, Other (no gallops, clicks or rubs) Extremities: No edema, Normal pulses, Other (radial cath site without bruising , hematoma or bruit) General: Alert, Oriented X3, Cooperative, No acute distress Lungs: Clear to auscultation Neuro: Normal speech, Strength at 5/5 X4 ext Psych/Mental Status: Mental status NL, Mood NL Assessment Assessment Problems Medical Problems: (1) STEMI (ST elevation myocardial infarction) Status: Acute 1. IW STEMI s/p PCI stent to RCA - continue DAPT, beta marcos and statin therapy. Ambulate, Cardiac rehab consult. 2. ICM EF 30-35% - continue beta marcos, add low dose ACEI if pressure remains stable. Consider life vest, will need repeat echo in 3 months for EF. 3. hypertension - well controlled 4. hyperlipidemia - continue statin therapy. Comment Review of Relevant I have reviewed the following items justina (where applicable) has been applied. Labs Laboratory Tests Test 08/04/16 01:20 08/04/16 01:26 08/04/16 01:29 08/04/16 02:55 White Blood Count 10.4 x10^3/uL (4.0-11.0) Red Blood Count 6.21 x10^6/uL (4.30-5.70) Hemoglobin 18.1 g/dL (13.0-17.5) Hematocrit 53.0 % (39.0-53.0) Mean Corpuscular Volume 85 fL (79-100) Mean Corpuscular Hemoglobin 29 pg (25-35) Mean Corpuscular Hemoglobin Concent 34 g/dL (31-37) Red Cell Distribution Width 14.1 % (11.5-14.5) Platelet Count 176 x10^3/uL (140-400) Neutrophils (%) (Auto) 69 % (31-73) Lymphocytes (%) (Auto) 18 % (24-48) Monocytes (%) (Auto) 9 % (0-9) Eosinophils (%) (Auto) 3 % (0-3) Basophils (%) (Auto) 1 % (0-3) Neutrophils # (Auto) 7.2 x10^3uL (1.8-7.7) Lymphocytes # (Auto) 1.9 x10^3/uL (1.0-4.8) Monocytes # (Auto) 0.9 x10^3/uL (0.0-1.1) Eosinophils # (Auto) 0.3 x10^3/uL (0.0-0.7) Basophils # (Auto) 0.1 x10^3/uL (0.0-0.2) Magnesium Level 2.0 mg/dL (1.8-2.4) YU-Hpm-Q-Type Natriuretic Peptide 57 pg/mL (0-124) Bedside Troponin I 0.02 ng/ml (<0.08) Bedside Hemoglobin 18.0 g/dL (14-18) Bedside Hematocrit 53 % (37-52) Bedside Sodium 138 mmol/L (135-145) Bedside Potassium 3.7 mmol/L (3.5-5.0) Bedside Chloride 101 mmol/L (98-110) Bedside Total CO2 24 mmol/L (23-32) Anion Gap 18 mmol/L (6-14) Bedside Blood Urea Nitrogen 20 mg/dL (8-26) Bedside Creatinine 1.1 mg/dL (0.5-1.4) Glucose Level 234 mg/dL (70-99) Bedside Ionized Calcium (Shanna) 1.08 mmol/L (1.13-1.32) Nasal Screen MRSA (PCR) Negative (Negative) Test 08/04/16 07:35 08/04/16 13:25 08/05/16 05:25 Hemoglobin A1c 5.6 % (4.8-5.6) Troponin I Quantitative 154.804 ng/mL (0.000-0.055) 153.471 ng/mL (0.000-0.055) Triglycerides Level 116 mg/dL (0-150) Cholesterol Level 104 mg/dL (0-200) LDL Cholesterol, Calculated 58 mg/dL (0-100) VLDL Cholesterol, Calculated 23 mg/dL (0-40) Non-HDL Cholesterol Calculated 81 mg/dL (0-129) HDL Cholesterol 23 mg/dL (40-60) Cholesterol/HDL Ratio 4.5 Sodium Level 140 mmol/L (136-145) Potassium Level 4.0 mmol/L (3.5-5.1) Chloride Level 104 mmol/L (98-107) Carbon Dioxide Level 31 mmol/L (21-32) Anion Gap 5 (6-14) Blood Urea Nitrogen 12 mg/dL (8-26) Creatinine 1.1 mg/dL (0.7-1.3) Estimated GFR (Cockcroft-Gault) 66.4 Glucose Level 122 mg/dL (70-99) Calcium Level 8.6 mg/dL (8.5-10.1) Laboratory Tests Test 08/04/16 13:25 08/05/16 05:25 Troponin I Quantitative 153.471 ng/mL (0.000-0.055) Sodium Level 140 mmol/L (136-145) Potassium Level 4.0 mmol/L (3.5-5.1) Chloride Level 104 mmol/L (98-107) Carbon Dioxide Level 31 mmol/L (21-32) Anion Gap 5 (6-14) Blood Urea Nitrogen 12 mg/dL (8-26) Creatinine 1.1 mg/dL (0.7-1.3) Estimated GFR (Cockcroft-Gault) 66.4 Glucose Level 122 mg/dL (70-99) Calcium Level 8.6 mg/dL (8.5-10.1) Medications Current Medications Fentanyl Citrate (Fentanyl 2ml Vial) 100 mcg PRN Q15MIN PRN IV PAIN GREATER THAN 3/10 Last administered on 08/04/16t 01:40; Start 08/04/16 at 01:30; Stop 08/04 at 08:46; Status DC Ondansetron HCl (Zofran) 4 mg PRN Q8HRS PRN IV NAUSEA/VOMITING; Start 08/04/16 at 01:30; Stop 08/04/16 at 08:36; Status DC Fentanyl Citrate (Fentanyl 2ml Vial) 50 mcg PRN Q2HR PRN IV PAIN Last administered on 08/04/16 01:25; Start 08/04/16 at 01:30; Stop 08/05/16 at 01:29; Status DC Acetaminophen (Tylenol) 650 mg PRN Q4HRS PRN PO FEVER; Start 08/04/16 at 01:30; Stop 08/04/16 at 08:46; Status DC Nitroglycerin (Nitrostat) 0.4 mg PRN Q5MIN PRN SL CHEST PAIN; Start 08/04/16 at 01:30; Stop 08/04/16 at 08:46; Status DC Heparin Sodium (Porcine) (Heparin Sodium) 10,000 unit STK-MED ONCE .ROUTE ; Start 08/04/16 at 01:34; Stop 08/04/16 at 01:35; Status DC Heparin Sodium (Porcine) (Heparin Sodium) 4,000 unit 1X ONCE IV Last administered on 08/04/16 01:43; Start 08/04/16 at 01:45; Stop 08/04/16 at 01:46; Status DC Sodium Chloride 1,000 ml @ 1,000 mls/hr 1X ONCE IV Last administered on 01:45; Start 08/04/16 at 01:45; Stop 08/04/16 at 02:44; Status DC Nitroglycerin/ Dextrose (Nitroglycerin) 4 mg STK-MED ONCE .ROUTE ; Start at 01:47; Stop 08/04/16 at 01:48; Status DC Verapamil HCl (Verapamil) 5 mg STK-MED ONCE .ROUTE ; Start 08/04/16 at 01:47; Stop 08/04/16 at 01:48; Status DC Midazolam HCl (Versed) 2 mg STK-MED ONCE .ROUTE ; Start 08/04/16 at 01:48; Stop 08/04/16 at 01:49; Status DC Fentanyl Citrate (Fentanyl 2ml Vial) 100 mcg STK-MED ONCE .ROUTE ; Start at 01:48; Stop 08/04/16 at 01:49; Status DC Heparin Sodium (Porcine) (Heparin Sodium) 10,000 unit STK-MED ONCE .ROUTE ; Start 08/04/16 at 01:48; Stop 08/04/16 at 01:49; Status DC Lidocaine HCl 20 ml STK-MED ONCE .ROUTE ; Start 08/04/16 at 01:49; Stop 08/04/16 at 01:50; Status DC Heparin Sodium/ Sodium Chloride 500 ml @ As Directed STK-MED ONCE .ROUTE ; Start 08/04/16 at 01:49; Stop 08/04/16 at 01:50; Status DC Iodixanol (Visipaque 320) 100 ml STK-MED ONCE .ROUTE ; Start 08/04/16 at 01:49; Stop 08/04/16 at 01:50; Status DC Midazolam HCl (Versed) 2 mg STK-MED ONCE .ROUTE ; Start 08/04/16 at 02:03; Stop 08/04/16 at 02:04; Status DC Midazolam HCl (Versed) 2 mg STK-MED ONCE .ROUTE ; Start 08/04/16 at 02:10; Stop 08/04/16 at 02:11; Status DC Fentanyl Citrate (Fentanyl 2ml Vial) 100 mcg STK-MED ONCE .ROUTE ; Start at 02:10; Stop 08/04/16 at 02:11; Status DC Nitroglycerin (Nitroglycerin) 200 mcg 1X ONCE IART Last administered on 02:45; Start 08/04/16 at 02:45; Stop 08/04/16 at 02:46; Status DC Verapamil HCl (Verapamil) 2.5 mg 1X ONCE IART Last administered on 08/04/16 02 :45; Start 08/04/16 at 02:45; Stop 08/04/16 at 02:46; Status DC Heparin Sodium (Porcine) (Heparin Sodium) 2,500 unit 1X ONCE IART Last administered on 08/04/16 02:47; Start 08/04/16 at 02:45; Stop 08/04/16 at 02:46; Status DC Heparin Sodium/ Sodium Chloride 1,000 unit 1X ONCE IART Last administered on 02:45; Start 08/04/16 at 02:45; Stop 08/04/16 at 02:46; Status DC Midazolam HCl (Versed) 5 mg 1X ONCE IV Last administered on 08/04/16 02:43; Start 08/04/16 at 02:45; Stop 08/04/16 at 02:46; Status DC Fentanyl Citrate (Fentanyl 2ml Vial) 150 mcg 1X ONCE IV Last administered on 02:43; Start 08/04/16 at 02:45; Stop 08/04/16 at 02:46; Status DC Iodixanol (Visipaque 320) 111 ml 1X ONCE IART Last administered on 08/04/16 02 :45; Start 08/04/16 at 02:45; Stop 08/04/16 at 02:46; Status DC Bivalirudin (Angiomax) 250 mg 1X ONCE IV Last administered on 08/04/16 02:44; Start 08/04/16 at 02:45; Stop 08/04/16 at 02:46; Status DC Clopidogrel Bisulfate (Plavix) 600 mg 1X ONCE PO Last administered on 02:46; Start 08/04/16 at 02:45; Stop 08/04/16 at 02:46; Status DC Lidocaine HCl 20 ml 1X ONCE IJ Last administered on 08/04/16 02:44; Start 08/04 at 02:45; Stop 08/04/16 at 02:46; Status DC Sodium Chloride 1,000 ml @ 100 mls/hr Q10H IV Last administered on 08/04/16 03 :31; Start 08/04/16 at 02:35; Stop 08/04/16 at 19:05; Status DC Aspirin (Ecotrin) 325 mg DAILYWBKFT PO Last administered on 08/05/16 08:46; Start 08/05/16 at 08:00 Clopidogrel Bisulfate (Plavix) 75 mg DAILYWBKFT PO Last administered on 08:46; Start 08/05/16 at 08:00 Acetaminophen (Tylenol) 650 mg PRN Q6HRS PRN PO MILD PAIN / TEMP; Start at 02:45 Nitroglycerin (Nitrostat) 0.4 mg PRN Q5MIN PRN SL CHEST PAIN; Start 08/04/16 at 02:45; Stop 08/04/16 at 08:49; Status DC Metoprolol Tartrate (Lopressor) 25 mg BID PO Last administered on 08/05/16 08: 44; Start 08/04/16 at 09:00 Atorvastatin Calcium (Lipitor) 80 mg QHS PO Last administered on 08/04/16 20:41 ; Start 08/04/16 at 21:00 Clopidogrel Bisulfate (Plavix) 75 mg STK-MED ONCE .ROUTE ; Start 08/04/16 at 02: 46; Stop 08/04/16 at 02:47; Status DC Ondansetron HCl (Zofran) 4 mg PRN Q6HRS PRN IV NAUSEA/VOMITING; Start 08/04/16 at 08:34 Docusate Sodium (Colace) 100 mg DAILY PO Last administered on 08/05/16 08:44; Start 08/04/16 at 09:00 Nitroglycerin (Nitrostat) 0.4 mg PRN Q5MIN PRN SL cp; Start 08/04/16 at 08:45 Pantoprazole Sodium (Protonix) 40 mg DAILYAC PO Last administered on 08/05/16 08:45; Start 08/04/16 at 09:00 Atorvastatin Calcium (Lipitor) 20 mg DAILY PO Last administered on 08/04/16 10: 08; Start 08/04/16 at 09:00; Stop 08/04/16 at 10:14; Status DC Vitamin D (Vitamin D3) 1,000 unit DAILY PO Last administered on 08/05/16 08:45 ; Start 08/04/16 at 09:00 Fish Oil (Fish Oil) 1,000 mg DAILY PO Last administered on 08/05/16 08:44; Start 08/04/16 at 09:00 Vitamin B Complex (Axel B) 1 tab DAILY PO Last administered on 08/05/16 08:45; Start 08/04/16 at 09:00 Potassium Chloride (Klor-Con) 40 meq 1X ONCE PO Last administered on 08/04/16 10:08; Start 08/04/16 at 10:00; Stop 08/04/16 at 10:01; Status DC Psyllium Hydrophilic Mucilloid (Metamucil Fiber Packet) 1 pkt DAILY PO Last administered on 08/05/16 08:45; Start 08/04/16 at 10:30 Morphine Sulfate 2 mg PRN Q2HR PRN IV PAIN; Start 08/04/16 at 10:30 Acetaminophen/ Hydrocodone Bitart (Lortab 5/325) 1 tab PRN Q4HRS PRN PO PAIN; Start 08/04/16 at 10:30 Oxycodone/ Acetaminophen (Percocet 5/325) 1 tab PRN Q6HRS PRN PO PAIN Last administered on 08/05/16t 03:34; Start 08/04/16 at 10:30 Active Scripts Active Reported Crestor (Rosuvastatin Calcium) 5 Mg Tablet 1 Tab PO TWICE WEEKLY Aspirin 81 Mg Tab.chew 1 Tab PO TWICE WEEKLY Omeprazole 20 Mg Capsule.dr 1 Cap PO DAILY B-100 Complex (Vitamin B Complex 100 No.2) 100 Mg Tablet.er 100 Mg PO Nitrostat (Nitroglycerin) 0.4 Mg Tab.subl 1 Tab SL UD Crestor (Rosuvastatin Calcium) 5 Mg Tablet 1 Tab PO DAILY Fish Oil (Range[place]-3 Fatty Acids) 300 Mg Capsule 300 Mg PO Vitamin D-3 (Cholecalciferol (Vitamin D3)) 2,000 Unit Capsule 2,000 Unit PO Vyvanse (Lisdexamfetamine Dimesylate) 50 Mg Capsule 1 Cap PO DAILY Testosterone Cypionate 200 Mg/1 Ml Vial 200 Mg IM Vitals/I & O Vital Sign - Last 24 Hours 08/04/16 08/04/16 08/04/16 08/04/16 11:00 11:04 12:00 16:00 Temp 98.1 97.9 98.1 97.9 Pulse 96 79 75 Resp 24 17 21 B/P (MAP) 149/75 (99) 145/89 (107) 125/83 (97) Pulse Ox 95 92 97 O2 Delivery Room Air Room Air Room Air Room Air 08/04/16 08/04/16 08/04/16 08/04/16 19:00 19:25 19:40 20:42 Temp 97.8 97.8 Pulse 80 71 Resp 18 16 B/P (MAP) 142/69 (93) 142/69 Pulse Ox 96 96 O2 Delivery Room Air Room Air Room Air 08/04/16 08/04/16 08/05/16 08/05/16 20:42 22:39 03:22 03:34 Temp 98.2 98.4 98.2 98.4 Pulse 68 63 Resp 18 18 16 16 B/P (MAP) 122/81 (95) 116/71 (86) Pulse Ox 97 94 96 O2 Delivery Room Air Room Air Room Air 08/05/16 08/05/16 08/05/16 08/05/16 04:47 07:30 08:00 08:44 Temp 97.7 97.7 Pulse 61 61 Resp 20 B/P (MAP) 111/71 (84) 111/71 Pulse Ox 96 95 O2 Delivery Room Air Room Air Room Air Intake and Output 08/04/16 08/04/16 08/05/16 15:00 23:00 07:00 Intake Total 540 ml 700 ml Balance 540 ml 700 ml CON MASTERS MD 08/05/16 1042: PROGRESS NOTES Plan Plan of Care Pt. seen and examined. Agree with above LABVIEW PROGRAMMER note. 70 y.o male s/p PCI to the RCA in the setting of inferior STEMI. No acute events overnight. Meds reviewed: ASA 325mg, PLavix 75mg, Atorvastatin 80mg, Metoprolol 25mg bid. On exam he appears appropriate. Normal heart tones. Tele with NSVT Labs reviewed. Trop peak at 154 Echo - Dilated ischemic cardiomyopathy. -Change metoprol to Toprol XL 25mg daily. -Start Lisinopril 5mg daily -refer to lifevest. -Lasix 20mg daily -F/u in the office in 1 week. SHEN HENRIQUEZ APRN Aug 05, 2016 10:24 CON MASTERS MD Aug 05, 2016 10:42
[2016-08-05 11:00] VITALS: BP 112/68
[2016-08-05 11:21] VITALS: BP 136/54
[2016-08-05] MEDS ORDERED: LISINOPRIL 5 MG TABLET. PO SCH (11:30)
[2016-08-05] MEDS ORDERED: FUROSEMIDE 20 MG TABLET PO SCH (11:30)
[2016-08-05] MEDS ORDERED: LISI-338 PO (11:48)
[2016-08-05] MEDS ORDERED: METO25TA9 PO (11:48)
[2016-08-05] MEDS ORDERED: CLOP75TA27 PO (11:48)
[2016-08-05] MEDS ORDERED: LIPITOR80 MG PO (11:48)
[2016-08-05] MEDS ORDERED: FURO-69 PO (11:48)
[2016-08-05] MEDS ORDERED: ASPI325T4 PO (11:48)
--- NOTE | 2016-08-05 11:49 | PDOC3 ---
Discharge Summary Visit Information Date of Admission: Aug 04, 2016 Date of Discharge: Aug 05, 2016 Admitting Diagnosis Comment: 1. STEMI s/p 1 PCI 2. Hx CAD with indwelling 1 LAD stent\\ 3. HTN, controlled 4., Dyslipidemia\\ 5. Obese 6. HX spont PTX 7. COnstipation Final Diagnosis Problems Medical Problems: (1) STEMI (ST elevation myocardial infarction) Status: Acute Brief Hospital Course Allergies Allergies Coded Allergies Type Severity Reaction Last Updated Verified erythromycin base Allergy Intermediate Hives 04/27/16 Yes Vital Signs Vital Signs Date Time Temp Pulse Resp B/P (MAP) Pulse Ox O2 Delivery O2 Flow Rate FiO2 08/05/16 08:44 61 111/71 08/05/16 08:00 Room Air 08/05/16 07:30 97.7 20 95 97.7 Lab Results Laboratory Tests Test 08/04/16 01:20 08/04/16 01:26 08/04/16 01:29 08/04/16 02:55 White Blood Count 10.4 x10^3/uL (4.0-11.0) Red Blood Count 6.21 x10^6/uL (4.30-5.70) Hemoglobin 18.1 g/dL (13.0-17.5) Hematocrit 53.0 % (39.0-53.0) Mean Corpuscular Volume 85 fL (79-100) Mean Corpuscular Hemoglobin 29 pg (25-35) Mean Corpuscular Hemoglobin Concent 34 g/dL (31-37) Red Cell Distribution Width 14.1 % (11.5-14.5) Platelet Count 176 x10^3/uL (140-400) Neutrophils (%) (Auto) 69 % (31-73) Lymphocytes (%) (Auto) 18 % (24-48) Monocytes (%) (Auto) 9 % (0-9) Eosinophils (%) (Auto) 3 % (0-3) Basophils (%) (Auto) 1 % (0-3) Neutrophils # (Auto) 7.2 x10^3uL (1.8-7.7) Lymphocytes # (Auto) 1.9 x10^3/uL (1.0-4.8) Monocytes # (Auto) 0.9 x10^3/uL (0.0-1.1) Eosinophils # (Auto) 0.3 x10^3/uL (0.0-0.7) Basophils # (Auto) 0.1 x10^3/uL (0.0-0.2) Magnesium Level 2.0 mg/dL (1.8-2.4) IL-Nwi-F-Type Natriuretic Peptide 57 pg/mL (0-124) Bedside Troponin I 0.02 ng/ml (<0.08) Bedside Hemoglobin 18.0 g/dL (14-18) Bedside Hematocrit 53 % (37-52) Bedside Sodium 138 mmol/L (135-145) Bedside Potassium 3.7 mmol/L (3.5-5.0) Bedside Chloride 101 mmol/L (98-110) Bedside Total CO2 24 mmol/L (23-32) Anion Gap 18 mmol/L (6-14) Bedside Blood Urea Nitrogen 20 mg/dL (8-26) Bedside Creatinine 1.1 mg/dL (0.5-1.4) Glucose Level 234 mg/dL (70-99) Bedside Ionized Calcium (Shanna) 1.08 mmol/L (1.13-1.32) Nasal Screen MRSA (PCR) Negative (Negative) Test 08/04/16 07:35 08/04/16 13:25 08/05/16 05:25 Hemoglobin A1c 5.6 % (4.8-5.6) Troponin I Quantitative 154.804 ng/mL (0.000-0.055) 153.471 ng/mL (0.000-0.055) Triglycerides Level 116 mg/dL (0-150) Cholesterol Level 104 mg/dL (0-200) LDL Cholesterol, Calculated 58 mg/dL (0-100) VLDL Cholesterol, Calculated 23 mg/dL (0-40) Non-HDL Cholesterol Calculated 81 mg/dL (0-129) HDL Cholesterol 23 mg/dL (40-60) Cholesterol/HDL Ratio 4.5 Sodium Level 140 mmol/L (136-145) Potassium Level 4.0 mmol/L (3.5-5.1) Chloride Level 104 mmol/L (98-107) Carbon Dioxide Level 31 mmol/L (21-32) Anion Gap 5 (6-14) Blood Urea Nitrogen 12 mg/dL (8-26) Creatinine 1.1 mg/dL (0.7-1.3) Estimated GFR (Cockcroft-Gault) 66.4 Glucose Level 122 mg/dL (70-99) Calcium Level 8.6 mg/dL (8.5-10.1) Laboratory Tests Test 08/04/16 13:25 08/05/16 05:25 Troponin I Quantitative 153.471 ng/mL (0.000-0.055) Sodium Level 140 mmol/L (136-145) Potassium Level 4.0 mmol/L (3.5-5.1) Chloride Level 104 mmol/L (98-107) Carbon Dioxide Level 31 mmol/L (21-32) Anion Gap 5 (6-14) Blood Urea Nitrogen 12 mg/dL (8-26) Creatinine 1.1 mg/dL (0.7-1.3) Estimated GFR (Cockcroft-Gault) 66.4 Glucose Level 122 mg/dL (70-99) Calcium Level 8.6 mg/dL (8.5-10.1) Brief Hospital Course Mr. Romeo is a 70 old [sex] who presented with [ ] Very pleasant 70 y/po male with hx 1 stent to LAD placed 3 yrs ago in , used to follow with Gina Obrien but not anymore since has been CP free since then until day of admission, severe, crushing 10/10 central CP, constant, non radiating associated with SOA and diaphoresis, IT was bad enough he thought he was going to , HE went to ER, STEMI inferior wall and STEMI called. STat urgent cath done, 1 stent. POst cath, still some moderate left sided CP, he describes as "soreness" , not as bad as when he initially came in. I did talk to him about long acting nitrates, spoke with [facility]ALTH[facility]ARE FACILITY ADMINISTRATOR and they will inform cards His CP was relieved at home by probably the second dose of the 4 nitrates he took Claims compliance to his cardiac meds NOn diabetic, non smoker but does have hx Spontaneous PTX notv needing Chest tubes, after his first CO. He was lifting heavy objects when he had the pTX. Underwent Cardiac cath, stent placed Being dcd on new cardiac meds Lots of Rx done, Pt seen and examined Ff up CArds as instructed Discharge Information Scheduled Aspirin (Aspirin), 1 TAB PO TWICE WEEKLY, (Reported) Lisdexamfetamine Dimesylate (Vyvanse), 1 CAP PO DAILY, (Reported) Nitroglycerin (Nitrostat), 1 TAB SL UD, (Reported) Omeprazole (Omeprazole), 1 CAP PO DAILY, (Reported) Rosuvastatin Calcium (Crestor), 1 TAB PO DAILY, (Reported) Rosuvastatin Calcium (Crestor), 1 TAB PO TWICE WEEKLY, (Reported) Miscellaneous Medications Cholecalciferol (Vitamin D3) (Vitamin D-3), 2,000 UNIT PO, (Reported) Byron-3 Fatty Acids (Fish Oil), 300 MG PO, (Reported) Testosterone Cypionate (Testosterone Cypionate), 200 MG IM, (Reported) Vitamin B Complex 100 No.2 (B-100 Complex), 100 MG PO, (Reported) ROLAND CANAS MD Aug 05, 2016 11:49
[2016-08-05 12:23] VITALS: BP 111/71
[2016-08-06] MEDS ORDERED: METOPROLOL SUCC 24HR ER 25 MG TAB.ER.24H. PO SCH (09:00)
== END 2016-08-05 12:45 | disposition home or self-care (01) | DRG 247 ==
LOC: ER 01:19 → 1 WEST ICU 01:25 → 2 NORTH 18:00
PROVIDERS: ADMIT Internal Medicine; ATTEND Internal Medicine
PROC: 4A023N7 Measurement of Cardiac Sampling and Pressure, Left Heart, Percutaneous Approach (ICD-10-PCS; principal; 2016-08-04)
PROC: 027034Z Dilation of Coronary Artery, One Artery with Drug-eluting Intraluminal Device, Percutaneous Approach (ICD-10-PCS; 2016-08-04)
PROC: B2151ZZ Fluoroscopy of Left Heart using Low Osmolar Contrast (ICD-10-PCS; 2016-08-04)
PROC: B2111ZZ Fluoroscopy of Multiple Coronary Arteries using Low Osmolar Contrast (ICD-10-PCS; 2016-08-04)
DX: I21.3 ST elevation (STEMI) myocardial infarction of unspecified site (principal); E78.00 Pure hypercholesterolemia, unspecified; I25.10 Atherosclerotic heart disease of native coronary artery without angina pectoris; E66.9 Obesity, unspecified; E78.5 Hyperlipidemia, unspecified; I10 Essential (primary) hypertension; I25.2 Old myocardial infarction; K59.00 Constipation, unspecified; Z95.5 Presence of coronary angioplasty implant and graft
CPT/HCPCS: 36415; 80047; 80048; 80061; 83036; 83735; 83880; 84484; 85027; 87641; 92941; 93005; 93306; 93454; 96374; 96375; C1725; C1769; C1874; C1887; C1892; J0583; J2250; J3010; J3490; J7030; 99285-25

== ENCOUNTER → 2016-08-31 | Outpatient (CLI) | payer BC ==
[2016-08-05 12:23] VITALS: BP 111/71
[~2016-08-31] MED LIST changes: +ASPI-630 PO; +ASPI325T8 PO; -ASPI81TA2 PO; -CHOL20004 PO; +CHOL200074 PO; +CLOP75TA57 PO; +FURO-69 PO; +LIPITOR80 MG PO; -LISD50CA2 PO; +LISD50CA3 PO; +LISI-338 PO; +METO25TA9 PO
--- NOTE | 2016-08-31 13:26 | RAD ---
APPROVED REPORT Patient Location : OUT-PATIENT Indications Venous Insufficiency Findings Paiz scale images of the bilateral greater and lesser saphenous veins including the saphenofemoral ju nctions were performed. On limited imaging the saphenofemoral junctions did not show any evidence of thrombus bilaterally. Color Doppler and spectral waveforms did not show any evidence of reflux. The right great saphenous v ein measures 6.1 mm in the left great saphenous vein measures approximately 3.1 mm. Critical Notification Critical Value: No <Conclusion> No evidence of reflux in the bilateral greater and lesser saphenous veins.
--- NOTE | 2016-08-31 16:53 | RAD ---
APPROVED REPORT Patient Location: OUT-PATIENT Indications PAD VELOCITY AND DOPPLER WAVEFORM ANALYSIS RIGHT cm/secWaveformSeverity LEFT c m/secWaveformSeverity pCFA 151.5TriphasicpCFA 103.4Triphasic Prof Fem Art. 73.0BiphasicProf Fem Art. 67.2Biphasic Fem Art Prox. 104.1BiphasicFem Art Prox. 109.9Biphasic Fem Art Mid. 88.2BiphasicFem Art Mid. 96.2Biphasic Fem Art Dist. 82.4BiphasicFem Art Dist. 114.6Biphasic Pop Art(Fossa) 46.8BiphasicPop Art(Fossa) 68.0Biphasic POULTRY SCIENTIST Dist. 68.4BiphasicPTA Dist. 62.9Biphasic Per Art Prox. Per Art Prox. Per Art Dist. 62.0BiphasicPer Art Dist. 62.2Biphasic STEPHEN Prox. 47.9BiphasicATA Prox. 64.3Biphasic STEPHEN Dist. 52.1BiphasicATA Dist. 111.3Biphasic Findings Paiz scale images of the right common femoral, superficial femoral, profunda and popliteal vessels re veal minimal atherosclerotic plaque. Spectral waveforms and color Doppler do not reveal any evidence of high grade stenosis. The below-knee vessels are notable for three-vessel runoff without any evidence of high-grade disease . There are biphasic waveforms. Paiz scale images of the left common femoral artery, superficial femoral artery and popliteal vessels do not reveal any significant atherosclerotic plaque. Spectral waveforms and color Doppler do not re veal any significant stenosis. The below-knee vessels are all patent without any high-grade disease. Critical Notification Critical Value: No <Conclusion> No evidence of high-grade arterial stenosis in the bilateral lower extremities
== END | disposition home or self-care (01) ==
LOC: US 08:48
PROVIDERS: ATTEND Internal Medicine Cardiovascular Disease
DX: I73.9 Peripheral vascular disease, unspecified (principal); I87.2 Venous insufficiency (chronic) (peripheral)
CPT/HCPCS: 93925; 93970

== ENCOUNTER → 2016-11-10 | Outpatient (CLI) | payer BC, MEDICARE ==
[~2016-11-10] MED LIST changes: +METO-239 PO; -METO25TA9 PO
--- NOTE | 2016-11-10 09:08 | CARD ---
APPROVED REPORT EXAM: Two-dimensional and M-mode echocardiogram with Doppler and color Doppler. Other Information Quality : Good INDICATION Ischemic Cardiomyopathy 2D DIMENSIONS RVDd3.2 (2.9-3.5cm)Left Atrium(2D)4.3 (1.6-4.0cm) IVSd1.3 (0.7-1.1cm)Aortic Root(2D)2.8 (2.0-3.7cm) LVDd6.5 (3.9-5.9cm)LVOT Diameter2.7 (1.8-2.4cm) PWd1.2 (0.7-1.1cm)LVDs4.4 (2.5-4.0cm) FS (%) 25.0 %SV123.0 ml LVEF(%)50.0 (>50%) Aortic Valve AoV Peak Reji.143.4cm/sAoV VTI29.8cm AO Peak GR.8.2mmHgLVOT Peak Reji.89.3cm/s LVOT VTI 18.60cmAO Mean GR.5mmHg SARI (VMAX)3.34hb4HRP (VTI)3.49cm2 Mitral Valve MV E Khcipdwq19.4cm/sMV DECEL [id number] MV A Zcuuwagt524.1cm/sMV AMI99es E/A Ratio0.7MVA (PHT)3.02cm2 TDI E/Lateral E'11.4E/Medial E'14.3 Tricuspid Valve TR P. Voefhyvc266sn/sRAP [id number] TR Peak Gr.[id number] Pulmonary Vein S1 Zrelnaxw17.1cm/sD2 Ihgsdkcq29.4cm/s PVa [id number] LEFT VENTRICLE The Left Ventricle is mildly dilated. There is mild concentric left ventricular hypertrophy. Base to mid inferior wall hypokinesis. The Ejection Fraction is 40-45%. Transmitral Doppler flow pattern is G rade I-abnormal relaxation pattern. RIGHT VENTRICLE The right ventricle is normal size. The right ventricular systolic function is normal. ATRIA The left atrium is mildly dilated. The right atrium size is normal. The interatrial septum is intact with no evidence for an atrial septal defect or patent foramen ovale as noted on 2-D or Doppler imagi ng. AORTIC VALVE The aortic valve is normal in structure and function. Doppler and Color Flow revealed no significant aortic regurgitation. There is no significant aortic valvular stenosis. MITRAL VALVE The mitral valve is calcified but opens well. There is no evidence of mitral valve prolapse. There is no mitral valve stenosis. Doppler and Color-flow revealed mild mitral regurgitation. TRICUSPID VALVE The tricuspid valve is normal in structure and function. Doppler and Color Flow revealed mild tricusp id regurgitation. There is mild pulmonary hypertension. The PA pressure was estimated at 35 mmHg. The re is no tricuspid valve stenosis. PULMONIC VALVE The pulmonary valve is normal in structure and function. Doppler and Color Flow revealed no pulmonic valvular regurgitation. There is no pulmonic valvular stenosis. GREAT VESSELS The aortic root is normal in size. The ascending aorta is not well seen. The IVC is normal in size an d collapses >50% with inspiration. PERICARDIAL EFFUSION There is no evidence of significant pericardial effusion. Critical Notification Critical Value: No <Conclusion> Base to mid inferior wall hypokinesis. The Ejection Fraction is 40-45%. Transmitral Doppler flow pattern is Grade I-abnormal relaxation pattern. Mild mitral regurgitation. Mild tricuspid regurgitation. The PA pressure was estimated at 35 mmHg. There is no evidence of significant pericardial effusion.
== END | disposition home or self-care (01) ==
LOC: ECHO 08:09
PROVIDERS: ATTEND Internal Medicine Cardiovascular Disease
DX: I08.1 Rheumatic disorders of both mitral and tricuspid valves (principal); I27.2 Other secondary pulmonary hypertension; I25.5 Ischemic cardiomyopathy
CPT/HCPCS: 93306

== ENCOUNTER → 2017-05-18 | Outpatient (CLI) | payer BC, MEDICARE ==
[2017-05-18] MEDS: REGADENOSON 0.4 MG/5 ML DISP.SYRIN. IV (10:27)
== END | disposition home or self-care (01) ==
LOC: NM 10:49
DX: I25.10 Atherosclerotic heart disease of native coronary artery without angina pectoris (principal); I45.10 Unspecified right bundle-branch block
CPT/HCPCS: 78452; 93017; 96374; 96375; 96376; A9500; J2785

== ENCOUNTER 2017-05-28 10:32 | Observation (INO) | payer BC, MEDICARE ==
[2017-05-28 11:05] LABS: HEMATOCRIT 55.5 % (39.0-53.0); HEMOGLOBIN 19.4 g/dL (13.0-17.5); MEAN CORPUSCULAR HEMOGLOBIN 32 pg (25-35); MEAN CORPUSCULAR HGB CONC 35 g/dL (31-37); MEAN CORPUSCULAR VOLUME 91 fL (79-100); PLATELET COUNT 148 x10^3/uL (140-400); RED BLOOD COUNT 6.08 x10^6/uL (4.30-5.70); WHITE BLOOD COUNT 6.2 x10^3/uL (4.0-11.0)
[2017-05-28 11:16] LABS: ANION GAP 6 (6-14); BLOOD UREA NITROGEN 16 mg/dL (8-26); CARBON DIOXIDE 29 mmol/L (21-32); CHLORIDE 103 mmol/L (98-107); CREATININE 1.1 mg/dL (0.7-1.3); GFR 66.2; GLUCOSE 118 mg/dL (70-99); SODIUM 138 mmol/L (136-145)
[2017-05-28 11:21] LABS: PROTHROMBIN TIME PATIENT 12.6 SEC (11.7-14.0)
[2017-05-28] MEDS: ALPRAZolam 0.5 MG TABLET PO (13:00)
[2017-05-28] MEDS ORDERED: IOHEXOL 350 MG/ML 100 ML VIAL. (15:46)
[2017-05-28] MEDS ORDERED: LIDOCAINE 2% 20 ML VIAL. (15:46)
[2017-05-28] MEDS ORDERED: fentaNYL PF VIAL 100 MCG/2 ML VIAL (16:02)
[2017-05-28] MEDS ORDERED: NITROGLYCERIN 200 MCG/2 ML SYRINGE FOR CATH/VASC LAB. (16:03)
[2017-05-28] MEDS ORDERED: HEPARIN for IV BOLUS 10,000 UNIT/10 ML VIAL. (16:03)
[2017-05-28] MEDS ORDERED: VERAPAMIL 5 MG/2 ML VIAL. (16:03)
[2017-05-28] MEDS ORDERED: MIDAZOLAM HCL/PF 2 MG/2 ML VIAL. (16:03)
[2017-05-28] MEDS ORDERED: BIVALIRUDIN 250 MG VIAL. IV (16:21)
[2017-05-28] MEDS ORDERED: CLOPIDOGREL BISULFATE 75 MG TABLET (16:42)
[2017-05-28] MEDS ORDERED: CONTRAST GIVEN MC (16:45)
[2017-05-28] MEDS: NITROGLYCERIN 200 MCG/2 ML SYRINGE FOR CATH/VASC LAB. IART (16:45)
[2017-05-28] MEDS: VERAPAMIL 5 MG/2 ML VIAL. IART (16:46)
[2017-05-28] MEDS: BIVALIRUDIN 250 MG VIAL. IV (16:46)
[2017-05-28] MEDS: MIDAZOLAM HCL/PF 2 MG/2 ML VIAL. IV (16:46)
[2017-05-28] MEDS: CLOPIDOGREL BISULFATE 75 MG TABLET PO (16:47)
[2017-05-28] MEDS: fentaNYL PF VIAL 100 MCG/2 ML VIAL IV (16:47)
[2017-05-28] MEDS: HEPARIN for IV BOLUS 10,000 UNIT/10 ML VIAL. IART (16:48)
[2017-05-28] MEDS: IOHEXOL 350 MG/ML 100 ML VIAL. IART (16:48)
[2017-05-28] MEDS: LIDOCAINE 2% 20 ML VIAL. IJ (16:48)
[2017-05-28] MEDS ORDERED: ACETAMINOPHEN 325 MG TABLET. PO (17:00)
[2017-05-28] MEDS: IV 1/2 NORMAL SALINE 1,000 ML IV (17:27)
[2017-05-28] MEDS: NITROGLYCERIN SUBLINGUAL 0.4 MG BOTTLE OF 25. SL (17:29)
[2017-05-28] MEDS: MORPHINE SULFATE 4 MG/ML DISP.SYRIN. IV (18:15)
[2017-05-28] MEDS: ATORVASTATIN CALCIUM 40 MG TABLET. PO (20:57)
[2017-05-29] MEDS: PANTOPRAZOLE 40 MG TABLET.DR. PO (06:05)
[2017-05-29] MEDS: FUROSEMIDE 20 MG TABLET PO (08:46)
[2017-05-29] MEDS: ASPIRIN ENTERIC COATED 325 MG TABLET.DR. PO (08:46)
[2017-05-29] MEDS: CLOPIDOGREL BISULFATE 75 MG TABLET PO (08:46)
[2017-05-29] MEDS: METOPROLOL SUCC 24HR ER 25 MG TAB.ER.24H. PO (08:47)
[2017-05-29] MEDS: NON FORMULARY ITEM (Lisdexamfetamine Dimesylate (Vyvanse) 1 CAP) PO (08:47)
[2017-05-29] MEDS: LISINOPRIL 5 MG TABLET. PO (08:47)
[2017-05-29] MEDS ORDERED: NEBIVOLOL HCL 5 MG PO (09:00)
== END 2017-05-29 13:15 | disposition home or self-care (01) ==
LOC: CCL 10:32 → 2 NORTH 16:23
DX: I25.10 Atherosclerotic heart disease of native coronary artery without angina pectoris (principal); I10 Essential (primary) hypertension; E78.5 Hyperlipidemia, unspecified; M79.606 Pain in leg, unspecified; I25.5 Ischemic cardiomyopathy; R60.9 Edema, unspecified; Z88.8 Allergy status to other drugs, medicaments and biological substances
CPT/HCPCS: 36415; 80048; 85027; 85610; 92928; 93454; 96374; 96375; 99152; 99153; C1713; C1769; C1887; C1892; C9600; G0378; G0379; J0583; J1644; J2250; J2270; J3010; J3490; Q9967

== ENCOUNTER 2017-06-07 10:09 | Inpatient (IN) | payer BC, MEDICARE ==
[2017-06-07 10:48] LABS: BASO % 0 % (0-3); EOS % 0 % (0-3); HEMATOCRIT 54.3 % (39.0-53.0); HEMOGLOBIN 18.7 g/dL (13.0-17.5); LYMPH # 0.2 x10^3/uL (1.0-4.8); LYMPH % 2 % (24-48); MEAN CORPUSCULAR HEMOGLOBIN 31 pg (25-35); MEAN CORPUSCULAR HGB CONC 34 g/dL (31-37); MEAN CORPUSCULAR VOLUME 91 fL (79-100); MONO % 6 % (0-9); NEUT # 14.6 x10^3uL (1.8-7.7); NEUT % 92 % (31-73); PLATELET COUNT 116 x10^3/uL (140-400); RED BLOOD COUNT 5.98 x10^6/uL (4.30-5.70); RED CELL DISTRIBUTION WIDTH 14.1 % (11.5-14.5); WHITE BLOOD COUNT 15.9 x10^3/uL (4.0-11.0)
[2017-06-07 11:03] LABS: ADD MAN DIFF? YES; INR 1.3 (0.8-1.1); PROTHROMBIN TIME PATIENT 15.5 SEC (11.7-14.0)
[2017-06-07 11:09] LABS: ANION GAP 10 (6-14); BLOOD UREA NITROGEN 22 mg/dL (8-26); CALCIUM 9.1 mg/dL (8.5-10.1); CARBON DIOXIDE 26 mmol/L (21-32); CHLORIDE 95 mmol/L (98-107); CREATININE 1.7 mg/dL (0.7-1.3); GLUCOSE 143 mg/dL (70-99); SODIUM 131 mmol/L (136-145)
[2017-06-07] MEDS: IV NORMAL SALINE 1000ML BAG 1,000 ML IV ×3 (11:14→19:33)
[2017-06-07 11:15] LABS: ALBUMIN 3.5 g/dL (3.4-5.0); ALK PHOS 62 U/L (46-116); ALT (SGPT) 39 U/L (16-63); AST (SGOT) 30 U/L (15-37); DIRECT BILIRUBIN 0.6 mg/dL (0.0-0.2); LIPASE 131 U/L (73-393); MAGNESIUM 1.9 mg/dL (1.8-2.4); TOTAL BILIRUBIN 2.1 mg/dL (0.2-1.0); TOTAL PROTEIN 7.3 g/dL (6.4-8.2)
[2017-06-07 11:16] LABS: TROPONINI 0.051 ng/mL (0.000-0.055)
[2017-06-07 11:22] LABS: NT-PRO BNP 293 pg/mL (0-124); THYROID STIM HORMONE (TSH) 2.232 uIU/mL (0.358-3.74)
[2017-06-07 11:22] LABS: CKMB INDEX 0.5 % (0-4); CKMB MASS 0.9 ng/mL (0.0-3.6); CREATINE KINASE 185 U/L (39-308)
[2017-06-07 11:29] LABS: LACTIC ACID 1.6 mmol/L (0.4-2.0)
[2017-06-07 12:13] LABS: BARBITURATES NEG (NEG); BENZODIAZEPINES NEG (NEG); CANNABINOIDS NEG (NEG); COCAINE NEG (NEG); METHADONE POS (NEG); OPIATES POS (NEG); PHENCYCLIDINE NEG (NEG)
[2017-06-07 12:14] LABS: AMPHETAMINE/METHAMPHETAMINE NEG (NEG); ETHANOL, URINE NEG (NEG)
[2017-06-07 12:31] LABS: BACTERIA,URINE FEW /HPF (0-FEW); BILIRUBIN,URINE NEGATIVE (NEG); CLARITY,URINE CLEAR; COLOR,URINE YELLOW; GLUCOSE,URINE NEGATIVE (NEG); NITRITE,URINE POSITIVE (NEG); PH,URINE 6.5; PROTEIN,URINE 30 mg/dL (NEG-TRACE); SQUAMOUS EPITHELIAL CELL,UR FEW /LPF
[2017-06-07 12:42] LABS: % ATYL 5 % (0-0); % BANDS 27 % (0-9); % LYMPHS 1 % (24-48); % MONOS 4 % (0-10); % SEGS 63 % (35-66); PLT ESTIMATE DECREASED (ADEQUATE)
[2017-06-07 12:43] LABS: POLYCHROMASIA SLIGHT; TOXIC VACUOLATION SLIGHT
[2017-06-07] MEDS: ACETAMINOPHEN 500 MG TABLET PO (13:22)
[2017-06-07] MEDS: ONDANSETRON PF 4 MG/2 ML VIAL. IV (13:51)
[2017-06-07] MEDS: MORPHINE SULFATE 4 MG/ML DISP.SYRIN. IV (13:52)
[2017-06-07 14:21] LABS: INFLUENZA A PATIENT NEGATIVE (NEGATIVE); INFLUENZA B PATIENT NEGATIVE (NEGATIVE)
[2017-06-07 14:22] LABS: OBC FLU VALID
[2017-06-07 16:04] LABS: LACTIC ACID 1.3 mmol/L (0.4-2.0); TROPONINI 0.071 ng/mL (0.000-0.055)
[2017-06-07] MEDS ORDERED: NITROGLYCERIN SUBLINGUAL 0.4 MG BOTTLE OF 25. SL (16:15)
[2017-06-07] MEDS: ENOXAPARIN 40 MG/0.4 ML SYRINGE. SQ (18:00)
[2017-06-07] MEDS: PIPERACILLIN/TAZOBACTAM 3.375 GM in IV NORMAL SALINE 50ML 50 ML IV (19:40)
[2017-06-07] MEDS: ATORVASTATIN CALCIUM 40 MG TABLET. PO (20:37)
[2017-06-07] MEDS: METOPROLOL TART IMMED RELEASE 25 MG TABLET. PO (20:37)
[2017-06-07] MEDS: DOCUSATE SODIUM 100 MG CAPSULE. PO (21:00)
[2017-06-07] MEDS: ACETAMINOPHEN 325 MG TABLET. PO (21:00)
[2017-06-07 22:01] LABS: TROPONINI 0.091 ng/mL (0.000-0.055)
[2017-06-08] MEDS: PIPERACILLIN/TAZOBACTAM 3.375 GM in IV NORMAL SALINE 50ML 50 ML IV ×4 (00:33→17:31)
[2017-06-08 04:58] LABS: ADD MAN DIFF? NO
[2017-06-08 05:35] LABS: BASO % 0 % (0-3); EOS % 0 % (0-3); HEMATOCRIT 53.3 % (39.0-53.0); HEMOGLOBIN 18.1 g/dL (13.0-17.5); LYMPH # 0.4 x10^3/uL (1.0-4.8); LYMPH % 4 % (24-48); MEAN CORPUSCULAR HEMOGLOBIN 32 pg (25-35); MEAN CORPUSCULAR HGB CONC 34 g/dL (31-37); MEAN CORPUSCULAR VOLUME 93 fL (79-100); MONO # 0.9 x10^3/uL (0.0-1.1); MONO % 10 % (0-9); NEUT # 8.3 x10^3uL (1.8-7.7); NEUT % 86 % (31-73); PLATELET COUNT 79 x10^3/uL (140-400); RED BLOOD COUNT 5.75 x10^6/uL (4.30-5.70); RED CELL DISTRIBUTION WIDTH 14.2 % (11.5-14.5); WHITE BLOOD COUNT 9.6 x10^3/uL (4.0-11.0)
[2017-06-08 05:36] LABS: ALBUMIN 2.8 g/dL (3.4-5.0); ALBUMIN/GLOBULIN RATIO 0.8 (1.0-1.7); ALK PHOS 49 U/L (46-116); ALT (SGPT) 50 U/L (16-63); ANION GAP 9 (6-14); AST (SGOT) 51 U/L (15-37); BLOOD UREA NITROGEN 21 mg/dL (8-26); BUN/CREATININE RATIO 16 (6-20); CALCIUM 8.7 mg/dL (8.5-10.1); CARBON DIOXIDE 25 mmol/L (21-32); CHLORIDE 102 mmol/L (98-107); CREATININE 1.3 mg/dL (0.7-1.3); GFR 54.6; GLUCOSE 128 mg/dL (70-99); POTASSIUM 4.4 mmol/L (3.5-5.1); SODIUM 136 mmol/L (136-145); TOTAL BILIRUBIN 1.4 mg/dL (0.2-1.0); TOTAL PROTEIN 6.3 g/dL (6.4-8.2)
[2017-06-08] MEDS: CLOPIDOGREL BISULFATE 75 MG TABLET PO (08:33)
[2017-06-08] MEDS: DOCUSATE SODIUM 100 MG CAPSULE. PO (08:33)
[2017-06-08] MEDS: PANTOPRAZOLE 40 MG TABLET.DR. PO (08:33)
[2017-06-08] MEDS: ASPIRIN 325 MG TABLET PO (08:33)
[2017-06-08] MEDS: METOPROLOL TART IMMED RELEASE 25 MG TABLET. PO ×2 (08:34→20:50)
[2017-06-08] MEDS: FUROSEMIDE 20 MG TABLET PO (09:00)
[2017-06-08] MEDS: LISINOPRIL 5 MG TABLET. PO (09:00)
[2017-06-08] MEDS: MORPHINE SULFATE 4 MG/ML DISP.SYRIN. IV ×3 (09:13→13:29)
[2017-06-08] MEDS: OMEGA-3 FATTY ACIDS/FISH OIL 1,000 MG CAPSULE. PO (10:00)
[2017-06-08 10:08] LABS: CKMB INDEX 0.8 % (0-4); CKMB MASS 2.8 ng/mL (0.0-3.6); CREATINE KINASE 347 U/L (39-308)
[2017-06-08 14:25] LABS: MRSA BY PCR Negative (Negative)
[2017-06-08] MEDS: POLYETHYLENE GLYCOL 3350 17 GM PACKET. PO (14:30)
[2017-06-08] MEDS: fentaNYL PF VIAL 100 MCG/2 ML VIAL IV ×3 (14:45→20:46)
[2017-06-08] MEDS: SODIUM PHOSPHATES 19/7GM 133 ML ENEMA. PR (16:30)
[2017-06-08] MEDS: ENOXAPARIN 40 MG/0.4 ML SYRINGE. SQ ×2 (17:22→18:00)
[2017-06-08] MEDS: TAMSULOSIN 0.4 MG CAP.ER.24H. PO (17:31)
[2017-06-08] MEDS: ATORVASTATIN CALCIUM 40 MG TABLET. PO (20:47)
[2017-06-09] MEDS: PIPERACILLIN/TAZOBACTAM 3.375 GM in IV NORMAL SALINE 50ML 50 ML IV ×5 (00:05→23:53)
[2017-06-09] MEDS: fentaNYL PF VIAL 100 MCG/2 ML VIAL IV ×5 (00:10→23:58)
[2017-06-09 05:18] LABS: ADD MAN DIFF? NO
[2017-06-09 05:29] LABS: BASO % 0 % (0-3); EOS % 0 % (0-3); HEMATOCRIT 50.7 % (39.0-53.0); HEMOGLOBIN 17.5 g/dL (13.0-17.5); LYMPH # 0.3 x10^3/uL (1.0-4.8); LYMPH % 4 % (24-48); MEAN CORPUSCULAR HEMOGLOBIN 31 pg (25-35); MEAN CORPUSCULAR HGB CONC 35 g/dL (31-37); MEAN CORPUSCULAR VOLUME 91 fL (79-100); MONO # 0.9 x10^3/uL (0.0-1.1); MONO % 13 % (0-9); NEUT # 6.2 x10^3uL (1.8-7.7); NEUT % 83 % (31-73); PLATELET COUNT 84 x10^3/uL (140-400); RED BLOOD COUNT 5.61 x10^6/uL (4.30-5.70); RED CELL DISTRIBUTION WIDTH 14.2 % (11.5-14.5); WHITE BLOOD COUNT 7.5 x10^3/uL (4.0-11.0)
[2017-06-09] MEDS: TAMSULOSIN 0.4 MG CAP.ER.24H. PO (08:10)
[2017-06-09] MEDS: OMEGA-3 FATTY ACIDS/FISH OIL 1,000 MG CAPSULE. PO (08:10)
[2017-06-09] MEDS: CLOPIDOGREL BISULFATE 75 MG TABLET PO (08:10)
[2017-06-09] MEDS: PANTOPRAZOLE 40 MG TABLET.DR. PO (08:10)
[2017-06-09] MEDS: LISINOPRIL 5 MG TABLET. PO (08:11)
[2017-06-09] MEDS: DOCUSATE SODIUM 100 MG CAPSULE. PO (08:11)
[2017-06-09] MEDS: METOPROLOL TART IMMED RELEASE 25 MG TABLET. PO ×3 (08:13→22:18)
[2017-06-09] MEDS: ASPIRIN 325 MG TABLET PO (08:14)
[2017-06-09] MEDS: POLYETHYLENE GLYCOL 3350 17 GM PACKET. PO (08:14)
[2017-06-09] MEDS: PSYLLIUM HUSK (SUGAR FREE) 1 PKT PACKET PO (12:58)
[2017-06-09] MEDS: LACTOBACILLUS RHAMNOSUS GG 1 CAPSULE. PO ×2 (16:04→22:15)
[2017-06-09] MEDS: ENOXAPARIN 40 MG/0.4 ML SYRINGE. SQ (18:32)
[2017-06-09] MEDS: ATORVASTATIN CALCIUM 40 MG TABLET. PO (22:15)
[2017-06-10] MEDS: PIPERACILLIN/TAZOBACTAM 3.375 GM in IV NORMAL SALINE 50ML 50 ML IV ×3 (05:20→17:53)
[2017-06-10] MEDS: fentaNYL PF VIAL 100 MCG/2 ML VIAL IV ×3 (05:57→17:54)
[2017-06-10] MEDS: POLYETHYLENE GLYCOL 3350 17 GM PACKET. PO (09:00)
[2017-06-10] MEDS: TAMSULOSIN 0.4 MG CAP.ER.24H. PO (09:37)
[2017-06-10] MEDS: DOCUSATE SODIUM 100 MG CAPSULE. PO (09:37)
[2017-06-10] MEDS: CLOPIDOGREL BISULFATE 75 MG TABLET PO (09:38)
[2017-06-10] MEDS: LACTOBACILLUS RHAMNOSUS GG 1 CAPSULE. PO ×2 (09:38→21:12)
[2017-06-10] MEDS: ASPIRIN 325 MG TABLET PO (09:38)
[2017-06-10] MEDS: PANTOPRAZOLE 40 MG TABLET.DR. PO (09:38)
[2017-06-10] MEDS: OMEGA-3 FATTY ACIDS/FISH OIL 1,000 MG CAPSULE. PO (09:38)
[2017-06-10] MEDS: METOPROLOL TART IMMED RELEASE 25 MG TABLET. PO ×2 (09:39→21:13)
[2017-06-10] MEDS: LISINOPRIL 5 MG TABLET. PO (09:43)
[2017-06-10] MEDS: ENOXAPARIN 40 MG/0.4 ML SYRINGE. SQ (17:55)
[2017-06-10] MEDS: ATORVASTATIN CALCIUM 40 MG TABLET. PO (21:12)
[2017-06-11] MEDS: fentaNYL PF VIAL 100 MCG/2 ML VIAL IV ×8 (00:05→23:38)
[2017-06-11] MEDS: PIPERACILLIN/TAZOBACTAM 3.375 GM in IV NORMAL SALINE 50ML 50 ML IV ×5 (00:05→23:38)
[2017-06-11 08:31] LABS: ADD MAN DIFF? NO
[2017-06-11 08:35] LABS: BASO % 0 % (0-3); EOS # 0.1 x10^3/uL (0.0-0.7); EOS % 2 % (0-3); HEMATOCRIT 53.3 % (39.0-53.0); LYMPH # 0.6 x10^3/uL (1.0-4.8); LYMPH % 9 % (24-48); MEAN CORPUSCULAR HEMOGLOBIN 31 pg (25-35); MEAN CORPUSCULAR HGB CONC 34 g/dL (31-37); MEAN CORPUSCULAR VOLUME 92 fL (79-100); MONO # 0.8 x10^3/uL (0.0-1.1); MONO % 12 % (0-9); NEUT # 5.3 x10^3uL (1.8-7.7); NEUT % 77 % (31-73); PLATELET COUNT 121 x10^3/uL (140-400); RED BLOOD COUNT 5.82 x10^6/uL (4.30-5.70); RED CELL DISTRIBUTION WIDTH 14.1 % (11.5-14.5); WHITE BLOOD COUNT 6.9 x10^3/uL (4.0-11.0)
[2017-06-11] MEDS: PANTOPRAZOLE 40 MG TABLET.DR. PO (08:43)
[2017-06-11] MEDS: ASPIRIN 325 MG TABLET PO (08:43)
[2017-06-11] MEDS: POLYETHYLENE GLYCOL 3350 17 GM PACKET. PO (08:43)
[2017-06-11] MEDS: LISINOPRIL 5 MG TABLET. PO (08:43)
[2017-06-11] MEDS: LACTOBACILLUS RHAMNOSUS GG 1 CAPSULE. PO ×2 (08:44→20:12)
[2017-06-11] MEDS: OMEGA-3 FATTY ACIDS/FISH OIL 1,000 MG CAPSULE. PO (08:44)
[2017-06-11] MEDS: METOPROLOL TART IMMED RELEASE 25 MG TABLET. PO ×2 (08:44→20:40)
[2017-06-11] MEDS: CLOPIDOGREL BISULFATE 75 MG TABLET PO (08:44)
[2017-06-11] MEDS: TAMSULOSIN 0.4 MG CAP.ER.24H. PO (08:45)
[2017-06-11] MEDS: DOCUSATE SODIUM 100 MG CAPSULE. PO (08:45)
[2017-06-11] MEDS: PSYLLIUM HUSK (SUGAR FREE) 1 PKT PACKET PO (08:48)
[2017-06-11 13:21] LABS: ERYTHROPOIETIN LVL 23.9 mIU/mL (2.6-18.5)
[2017-06-11] MEDS: ENOXAPARIN 40 MG/0.4 ML SYRINGE. SQ (19:25)
[2017-06-11] MEDS: ATORVASTATIN CALCIUM 40 MG TABLET. PO (20:40)
[2017-06-12 05:53] LABS: ADD MAN DIFF? NO
[2017-06-12 06:10] LABS: BASO % 0 % (0-3); EOS # 0.1 x10^3/uL (0.0-0.7); EOS % 1 % (0-3); HEMATOCRIT 50.6 % (39.0-53.0); HEMOGLOBIN 17.4 g/dL (13.0-17.5); LYMPH # 0.5 x10^3/uL (1.0-4.8); LYMPH % 6 % (24-48); MEAN CORPUSCULAR HEMOGLOBIN 31 pg (25-35); MEAN CORPUSCULAR HGB CONC 34 g/dL (31-37); MEAN CORPUSCULAR VOLUME 90 fL (79-100); MONO % 11 % (0-9); NEUT % 82 % (31-73); PLATELET COUNT 136 x10^3/uL (140-400); RED CELL DISTRIBUTION WIDTH 14.2 % (11.5-14.5); WHITE BLOOD COUNT 8.6 x10^3/uL (4.0-11.0)
[2017-06-12 06:27] LABS: ANION GAP 6 (6-14); BLOOD UREA NITROGEN 17 mg/dL (8-26); CALCIUM 8.9 mg/dL (8.5-10.1); CARBON DIOXIDE 30 mmol/L (21-32); CHLORIDE 101 mmol/L (98-107); CREATININE 1.8 mg/dL (0.7-1.3); GFR 37.5; GLUCOSE 106 mg/dL (70-99); POTASSIUM 4.4 mmol/L (3.5-5.1); SODIUM 137 mmol/L (136-145)
[2017-06-12] MEDS: PIPERACILLIN/TAZOBACTAM 3.375 GM in IV NORMAL SALINE 50ML 50 ML IV ×3 (06:33→18:30)
[2017-06-12] MEDS: ASPIRIN 325 MG TABLET PO (07:54)
[2017-06-12] MEDS: MAGNESIUM HYDROXIDE 2,400 MG/30 ML ORAL.SUSP. PO (07:54)
[2017-06-12] MEDS: OMEGA-3 FATTY ACIDS/FISH OIL 1,000 MG CAPSULE. PO (07:54)
[2017-06-12] MEDS: CLOPIDOGREL BISULFATE 75 MG TABLET PO (07:55)
[2017-06-12] MEDS: DOCUSATE SODIUM 100 MG CAPSULE. PO (07:55)
[2017-06-12] MEDS: PANTOPRAZOLE 40 MG TABLET.DR. PO (07:55)
[2017-06-12] MEDS: LACTOBACILLUS RHAMNOSUS GG 1 CAPSULE. PO ×2 (07:55→20:14)
[2017-06-12] MEDS: METOPROLOL TART IMMED RELEASE 25 MG TABLET. PO ×2 (07:56→20:14)
[2017-06-12] MEDS: POLYETHYLENE GLYCOL 3350 17 GM PACKET. PO (07:56)
[2017-06-12] MEDS: LISINOPRIL 5 MG TABLET. PO (07:56)
[2017-06-12] MEDS: IV NORMAL SALINE 1000ML BAG 1,000 ML IV (11:01)
[2017-06-12] MEDS: IOHEXOL 240 MG/ML 50ML VIAL. PO (12:45)
[2017-06-12] MEDS ORDERED: LUBIPROSTONE 8 MCG CAPSULE PO (17:00)
[2017-06-12] MEDS: LUBIPROSTONE 8 MCG CAPSULE PO (18:31)
[2017-06-12] MEDS: ENOXAPARIN 40 MG/0.4 ML SYRINGE. SQ (18:32)
[2017-06-12] MEDS: ATORVASTATIN CALCIUM 40 MG TABLET. PO (20:14)
[2017-06-13] MEDS: IV NORMAL SALINE 1000ML BAG 1,000 ML IV ×2 (00:05→20:11)
[2017-06-13 04:35] LABS: ADD MAN DIFF? NO
[2017-06-13 04:44] LABS: BASO # 0.1 x10^3/uL (0.0-0.2); BASO % 1 % (0-3); EOS # 0.1 x10^3/uL (0.0-0.7); EOS % 1 % (0-3); HEMATOCRIT 53.5 % (39.0-53.0); HEMOGLOBIN 18.6 g/dL (13.0-17.5); LYMPH # 0.7 x10^3/uL (1.0-4.8); LYMPH % 7 % (24-48); MEAN CORPUSCULAR HEMOGLOBIN 31 pg (25-35); MEAN CORPUSCULAR HGB CONC 35 g/dL (31-37); MEAN CORPUSCULAR VOLUME 90 fL (79-100); MONO # 0.9 x10^3/uL (0.0-1.1); MONO % 9 % (0-9); NEUT # 8.3 x10^3uL (1.8-7.7); NEUT % 83 % (31-73); PLATELET COUNT 161 x10^3/uL (140-400); RED BLOOD COUNT 5.93 x10^6/uL (4.30-5.70)
[2017-06-13 04:56] LABS: ANION GAP 8 (6-14); BLOOD UREA NITROGEN 18 mg/dL (8-26); CALCIUM 8.8 mg/dL (8.5-10.1); CARBON DIOXIDE 26 mmol/L (21-32); CHLORIDE 102 mmol/L (98-107); CREATININE 1.9 mg/dL (0.7-1.3); GFR 35.2; GLUCOSE 108 mg/dL (70-99); SODIUM 136 mmol/L (136-145)
[2017-06-13] MEDS: PIPERACILLIN/TAZOBACTAM 3.375 GM in IV NORMAL SALINE 50ML 50 ML IV ×4 (05:42→18:23)
[2017-06-13] MEDS: LUBIPROSTONE 8 MCG CAPSULE PO ×2 (08:00→17:00)
[2017-06-13] MEDS: PANTOPRAZOLE 40 MG TABLET.DR. PO (08:16)
[2017-06-13] MEDS: OMEGA-3 FATTY ACIDS/FISH OIL 1,000 MG CAPSULE. PO (08:16)
[2017-06-13] MEDS: DOCUSATE SODIUM 100 MG CAPSULE. PO (08:16)
[2017-06-13] MEDS: POLYETHYLENE GLYCOL 3350 17 GM PACKET. PO (08:16)
[2017-06-13] MEDS: ASPIRIN 325 MG TABLET PO (08:17)
[2017-06-13] MEDS: LACTOBACILLUS RHAMNOSUS GG 1 CAPSULE. PO ×2 (08:17→20:12)
[2017-06-13] MEDS: CLOPIDOGREL BISULFATE 75 MG TABLET PO (08:17)
[2017-06-13] MEDS: METOPROLOL TART IMMED RELEASE 25 MG TABLET. PO ×2 (08:18→20:13)
[2017-06-13] MEDS: LISINOPRIL 5 MG TABLET. PO (08:18)
[2017-06-13] MEDS: ENOXAPARIN 40 MG/0.4 ML SYRINGE. SQ (18:23)
[2017-06-13] MEDS: ATORVASTATIN CALCIUM 40 MG TABLET. PO (20:13)
[2017-06-14] MEDS: PIPERACILLIN/TAZOBACTAM 3.375 GM in IV NORMAL SALINE 50ML 50 ML IV ×2 (00:09→05:24)
[2017-06-14] MEDS: IV NORMAL SALINE 1000ML BAG 1,000 ML IV ×2 (02:45→16:05)
[2017-06-14 05:21] LABS: ADD MAN DIFF? NO
[2017-06-14 05:23] LABS: BASO # 0.1 x10^3/uL (0.0-0.2); BASO % 1 % (0-3); EOS # 0.2 x10^3/uL (0.0-0.7); EOS % 2 % (0-3); HEMATOCRIT 48.9 % (39.0-53.0); HEMOGLOBIN 16.9 g/dL (13.0-17.5); LYMPH # 0.8 x10^3/uL (1.0-4.8); LYMPH % 10 % (24-48); MEAN CORPUSCULAR HEMOGLOBIN 31 pg (25-35); MEAN CORPUSCULAR HGB CONC 35 g/dL (31-37); MEAN CORPUSCULAR VOLUME 90 fL (79-100); MONO # 0.8 x10^3/uL (0.0-1.1); MONO % 9 % (0-9); NEUT # 6.8 x10^3uL (1.8-7.7); NEUT % 79 % (31-73); PLATELET COUNT 195 x10^3/uL (140-400); RED BLOOD COUNT 5.42 x10^6/uL (4.30-5.70); RED CELL DISTRIBUTION WIDTH 13.9 % (11.5-14.5); WHITE BLOOD COUNT 8.7 x10^3/uL (4.0-11.0)
[2017-06-14 05:45] LABS: ANION GAP 5 (6-14); BLOOD UREA NITROGEN 21 mg/dL (8-26); CALCIUM 8.5 mg/dL (8.5-10.1); CARBON DIOXIDE 28 mmol/L (21-32); CHLORIDE 103 mmol/L (98-107); CREATININE 2.1 mg/dL (0.7-1.3); GFR 31.4; GLUCOSE 147 mg/dL (70-99); POTASSIUM 4.2 mmol/L (3.5-5.1); SODIUM 136 mmol/L (136-145)
[2017-06-14] MEDS ORDERED: fentaNYL PF VIAL 100 MCG/2 ML VIAL IV (07:00)
[2017-06-14] MEDS ORDERED: PROCHLORPERAZINE 10 MG/2 ML VIAL. IV (07:00)
[2017-06-14] MEDS ORDERED: ONDANSETRON PF 4 MG/2 ML VIAL. IV (07:00)
[2017-06-14] MEDS ORDERED: MORPHINE SULFATE 4 MG/ML DISP.SYRIN. IV (07:00)
[2017-06-14] MEDS ORDERED: LIDOCAINE 1% PF 2 ML VIAL. ID (07:00)
[2017-06-14] MEDS: PANTOPRAZOLE 40 MG TABLET.DR. PO (07:30)
[2017-06-14] MEDS ORDERED: AMPICILLIN SODIUM IV Push 2 GM VIAL. IVP (08:00)
[2017-06-14] MEDS ORDERED: AMPICILLIN SODIUM 2 GM in IV NORMAL SALINE 100ML 100 ML IV (08:00)
[2017-06-14] MEDS: LUBIPROSTONE 8 MCG CAPSULE PO ×2 (08:00→17:00)
[2017-06-14] MEDS: ASPIRIN 325 MG TABLET PO (09:00)
[2017-06-14] MEDS: CLOPIDOGREL BISULFATE 75 MG TABLET PO (09:00)
[2017-06-14] MEDS: POLYETHYLENE GLYCOL 3350 17 GM PACKET. PO (09:00)
[2017-06-14] MEDS: OMEGA-3 FATTY ACIDS/FISH OIL 1,000 MG CAPSULE. PO (09:00)
[2017-06-14] MEDS: LISINOPRIL 5 MG TABLET. PO (09:00)
[2017-06-14] MEDS: DOCUSATE SODIUM 100 MG CAPSULE. PO (09:00)
[2017-06-14] MEDS: METOPROLOL TART IMMED RELEASE 25 MG TABLET. PO ×2 (09:00→21:43)
[2017-06-14] MEDS: LACTOBACILLUS RHAMNOSUS GG 1 CAPSULE. PO ×2 (09:00→21:41)
[2017-06-14] MEDS: IV RINGERS,LACTATED 1000ML 1,000 ML IV ×2 (10:21→14:51)
[2017-06-14] MEDS ORDERED: PROPOFOL 100 ML IV (11:25)
[2017-06-14] MEDS: LIDOCAINE 2% TOPICAL JELLY 5GM TUBE. TP (11:59)
[2017-06-14] MEDS: BENZOCAINE ONE 20% MUCOSAL SPRAY. MM (12:00)
[2017-06-14] MEDS: LIDOCAINE 2% VISCOUS 15 ML SOLUTION. SWSW (12:00)
[2017-06-14] MEDS ORDERED: LIDOCAINE WITH 8.4% SOD BICARB 3 ML DISP.SYRIN. (12:33)
[2017-06-14] MEDS: LIDOCAINE WITH 8.4% SOD BICARB 3 ML DISP.SYRIN. IJ (13:00)
[2017-06-14] MEDS: fentaNYL PF VIAL 100 MCG/2 ML VIAL IV ×3 (13:56→18:15)
[2017-06-14] MEDS ORDERED: PROPOFOL 20 ML IV (14:27)
[2017-06-14] MEDS ORDERED: PHENYLEPHRINE in 0.9% NACL PF 1 MG/10 ML SYRINGE. IV (14:27)
[2017-06-14] MEDS ORDERED: fentaNYL PF VIAL 100 MCG/2 ML VIAL ×2 (14:27→14:52)
[2017-06-14] MEDS ORDERED: DEXAMETHASONE SOD PHOS 20 MG/5 ML VIAL. (14:27)
[2017-06-14] MEDS ORDERED: LIDOCAINE 1% PF 5 ML VIAL. (14:27)
[2017-06-14] MEDS ORDERED: SEVOFLURANE 61 TO 120 MINUTES. IH (14:36)
[2017-06-14] MEDS: cefTRIAXone IV Push 1 GM VIAL. IVP ×2 (14:51→21:44)
[2017-06-14] MEDS: fentaNYL PF VIAL 100 MCG/2 ML VIAL IM (15:00)
[2017-06-14] MEDS ORDERED: FAMOTIDINE 20 MG/2 ML VIAL (15:33)
[2017-06-14] MEDS ORDERED: ROCURONIUM 50 MG/5 ML VIAL. (15:33)
[2017-06-14] MEDS: IOHEXOL 300 MG/ML 100ML VIAL. (16:13)
[2017-06-14] MEDS ORDERED: VASOPRESSIN 20 UNIT/ML VIAL. (16:25)
[2017-06-14] MEDS ORDERED: NEOSTIGMINE METHYLSULFATE 5 MG/5 ML SYRINGE. (16:39)
[2017-06-14] MEDS ORDERED: GLYCOPYRROLATE 1 MG/5 ML VIAL. (16:40)
[2017-06-14] MEDS ORDERED: DESFLURANE 61 TO 120 MINUTES IH (16:41)
[2017-06-14] MEDS: ENOXAPARIN 40 MG/0.4 ML SYRINGE. SQ (18:00)
[2017-06-14] MEDS: AMPICILLIN SODIUM IV Push 2 GM VIAL. IVP ×3 (18:00→23:51)
[2017-06-14] MEDS: MORPHINE SULFATE 4 MG/ML DISP.SYRIN. IV ×2 (19:03→23:46)
[2017-06-14] MEDS: DIGOXIN IV 500 MCG/2 ML AMPUL. IV ×2 (20:03→23:37)
[2017-06-14] MEDS: ATORVASTATIN CALCIUM 40 MG TABLET. PO (21:41)
[2017-06-14] MEDS: oxyCODONE/APAP 5/325 1 TAB TABLET PO (21:45)
[2017-06-15] MEDS: DIGOXIN IV 500 MCG/2 ML AMPUL. IV ×2 (04:30→23:59)
[2017-06-15] MEDS: IV NORMAL SALINE 1000ML BAG 1,000 ML IV ×2 (05:25→18:45)
[2017-06-15] MEDS: AMPICILLIN SODIUM IV Push 2 GM VIAL. IVP ×3 (06:22→17:21)
[2017-06-15] MEDS: ALTEPLASE 2 MG VIAL INT CAT ×2 (07:17→10:27)
[2017-06-15] MEDS: FUROSEMIDE 40 MG/4 ML VIAL. IVP (08:45)
[2017-06-15] MEDS: POLYETHYLENE GLYCOL 3350 17 GM PACKET. PO ×2 (09:39→10:10)
[2017-06-15] MEDS: DOCUSATE SODIUM 100 MG CAPSULE. PO (09:40)
[2017-06-15] MEDS: ASPIRIN 325 MG TABLET PO (09:40)
[2017-06-15] MEDS: LUBIPROSTONE 8 MCG CAPSULE PO ×2 (09:41→17:00)
[2017-06-15] MEDS: LACTOBACILLUS RHAMNOSUS GG 1 CAPSULE. PO ×2 (09:41→21:52)
[2017-06-15] MEDS: CLOPIDOGREL BISULFATE 75 MG TABLET PO (09:43)
[2017-06-15] MEDS: OMEGA-3 FATTY ACIDS/FISH OIL 1,000 MG CAPSULE. PO (09:44)
[2017-06-15] MEDS: LISINOPRIL 5 MG TABLET. PO (09:44)
[2017-06-15] MEDS: PANTOPRAZOLE 40 MG TABLET.DR. PO (09:45)
[2017-06-15] MEDS: LIDOCAINE 2% JELLY 6ML IN APPLICATOR. MM (10:27)
[2017-06-15] MEDS: MAGNESIUM HYDROXIDE 2,400 MG/30 ML ORAL.SUSP. PO ×2 (10:30→21:51)
[2017-06-15] MEDS: cefTRIAXone IV Push 1 GM VIAL. IVP ×2 (11:56→21:51)
[2017-06-15] MEDS: BISACODYL 10 MG SUPP.RECT. PR (12:15)
[2017-06-15 13:24] LABS: BASO % 0 % (0-3); EOS % 0 % (0-3); HEMATOCRIT 54.3 % (39.0-53.0); HEMOGLOBIN 18.5 g/dL (13.0-17.5); LYMPH # 0.6 x10^3/uL (1.0-4.8); LYMPH % 4 % (24-48); MEAN CORPUSCULAR HEMOGLOBIN 31 pg (25-35); MEAN CORPUSCULAR HGB CONC 34 g/dL (31-37); MEAN CORPUSCULAR VOLUME 91 fL (79-100); MONO # 0.9 x10^3/uL (0.0-1.1); MONO % 6 % (0-9); NEUT # 12.7 x10^3uL (1.8-7.7); NEUT % 89 % (31-73); PLATELET COUNT 253 x10^3/uL (140-400); RED BLOOD COUNT 5.95 x10^6/uL (4.30-5.70); RED CELL DISTRIBUTION WIDTH 14.1 % (11.5-14.5); WHITE BLOOD COUNT 14.2 x10^3/uL (4.0-11.0)
[2017-06-15 13:31] LABS: ADD MAN DIFF? YES
[2017-06-15 13:39] LABS: ALBUMIN/GLOBULIN RATIO 0.7 (1.0-1.7); ALK PHOS 61 U/L (46-116); ALT (SGPT) 51 U/L (16-63); ANION GAP 6 (6-14); AST (SGOT) 29 U/L (15-37); BLOOD UREA NITROGEN 20 mg/dL (8-26); BUN/CREATININE RATIO 13 (6-20); CALCIUM 9.4 mg/dL (8.5-10.1); CARBON DIOXIDE 30 mmol/L (21-32); CHLORIDE 100 mmol/L (98-107); CREATININE 1.6 mg/dL (0.7-1.3); GFR 42.9; GLUCOSE 146 mg/dL (70-99); POTASSIUM 4.1 mmol/L (3.5-5.1); SODIUM 136 mmol/L (136-145); TOTAL PROTEIN 7.3 g/dL (6.4-8.2)
[2017-06-15] MEDS: ENOXAPARIN 40 MG/0.4 ML SYRINGE. SQ (17:31)
[2017-06-15] MEDS: PHENAZOPYRIDINE 200 MG TABLET. PO ×2 (17:31→21:51)
[2017-06-15 17:47] LABS: % BANDS 14 % (0-9); % BASOS 2 % (0-3); % LYMPHS 5 % (24-48); % MONOS 3 % (0-10); % SEGS 76 % (35-66)
[2017-06-15 17:48] LABS: PLT ESTIMATE ADEQUATE (ADEQUATE)
[2017-06-15] MEDS: ATORVASTATIN CALCIUM 40 MG TABLET. PO (21:52)
[2017-06-15] MEDS: METOPROLOL TART IMMED RELEASE 25 MG TABLET. PO (21:55)
[2017-06-15] MEDS: SENNOSIDES 8.6 MG TABLET PO (21:56)
[2017-06-16 04:29] LABS: ADD MAN DIFF? NO
[2017-06-16 04:34] LABS: BASO % 1 % (0-3); EOS # 0.1 x10^3/uL (0.0-0.7); EOS % 1 % (0-3); HEMATOCRIT 50.5 % (39.0-53.0); HEMOGLOBIN 17.4 g/dL (13.0-17.5); LYMPH # 0.8 x10^3/uL (1.0-4.8); LYMPH % 8 % (24-48); MEAN CORPUSCULAR HEMOGLOBIN 32 pg (25-35); MEAN CORPUSCULAR HGB CONC 35 g/dL (31-37); MEAN CORPUSCULAR VOLUME 91 fL (79-100); MONO % 11 % (0-9); NEUT # 7.6 x10^3uL (1.8-7.7); NEUT % 80 % (31-73); PLATELET COUNT 206 x10^3/uL (140-400); RED BLOOD COUNT 5.54 x10^6/uL (4.30-5.70); RED CELL DISTRIBUTION WIDTH 14.2 % (11.5-14.5); WHITE BLOOD COUNT 9.6 x10^3/uL (4.0-11.0)
[2017-06-16 04:59] LABS: ANION GAP 6 (6-14); BLOOD UREA NITROGEN 19 mg/dL (8-26); CALCIUM 8.4 mg/dL (8.5-10.1); CARBON DIOXIDE 31 mmol/L (21-32); CHLORIDE 101 mmol/L (98-107); CREATININE 1.5 mg/dL (0.7-1.3); GFR 46.3; GLUCOSE 147 mg/dL (70-99); POTASSIUM 4.2 mmol/L (3.5-5.1); SODIUM 138 mmol/L (136-145)
[2017-06-16] MEDS: AMPICILLIN SODIUM IV Push 2 GM VIAL. IVP ×4 (05:38→17:54)
[2017-06-16] MEDS: LUBIPROSTONE 8 MCG CAPSULE PO ×2 (08:00→17:00)
[2017-06-16] MEDS: IV NORMAL SALINE 1000ML BAG 1,000 ML IV ×2 (08:05→21:25)
[2017-06-16] MEDS: LACTOBACILLUS RHAMNOSUS GG 1 CAPSULE. PO ×2 (09:47→21:40)
[2017-06-16] MEDS: cefTRIAXone IV Push 1 GM VIAL. IVP ×2 (09:47→21:39)
[2017-06-16] MEDS: CLOPIDOGREL BISULFATE 75 MG TABLET PO (09:48)
[2017-06-16] MEDS: OMEGA-3 FATTY ACIDS/FISH OIL 1,000 MG CAPSULE. PO (09:49)
[2017-06-16] MEDS: PANTOPRAZOLE 40 MG TABLET.DR. PO (09:50)
[2017-06-16] MEDS: ASPIRIN 325 MG TABLET PO (09:50)
[2017-06-16] MEDS: DOCUSATE SODIUM 100 MG CAPSULE. PO (09:50)
[2017-06-16] MEDS: POLYETHYLENE GLYCOL 3350 17 GM PACKET. PO (09:51)
[2017-06-16] MEDS: MAGNESIUM HYDROXIDE 2,400 MG/30 ML ORAL.SUSP. PO ×2 (09:51→21:38)
[2017-06-16] MEDS: METOPROLOL TART IMMED RELEASE 25 MG TABLET. PO ×3 (09:51→22:00)
[2017-06-16] MEDS: ENOXAPARIN 40 MG/0.4 ML SYRINGE. SQ (17:53)
[2017-06-16] MEDS: ATORVASTATIN CALCIUM 40 MG TABLET. PO (21:40)
[2017-06-17] MEDS: AMPICILLIN SODIUM IV Push 2 GM VIAL. IVP ×5 (01:14→23:41)
[2017-06-17 05:06] LABS: ADD MAN DIFF? NO
[2017-06-17 05:40] LABS: ANION GAP 10 (6-14); BLOOD UREA NITROGEN 15 mg/dL (8-26); CALCIUM 8.5 mg/dL (8.5-10.1); CARBON DIOXIDE 26 mmol/L (21-32); CHLORIDE 102 mmol/L (98-107); CREATININE 1.2 mg/dL (0.7-1.3); GFR 59.9; GLUCOSE 157 mg/dL (70-99); SODIUM 138 mmol/L (136-145)
[2017-06-17 05:48] LABS: BASO % 0 % (0-3); EOS # 0.1 x10^3/uL (0.0-0.7); EOS % 1 % (0-3); HEMATOCRIT 50.1 % (39.0-53.0); HEMOGLOBIN 17.1 g/dL (13.0-17.5); LYMPH # 0.8 x10^3/uL (1.0-4.8); LYMPH % 9 % (24-48); MEAN CORPUSCULAR HEMOGLOBIN 31 pg (25-35); MEAN CORPUSCULAR HGB CONC 34 g/dL (31-37); MEAN CORPUSCULAR VOLUME 91 fL (79-100); MONO # 0.9 x10^3/uL (0.0-1.1); MONO % 10 % (0-9); NEUT # 7.3 x10^3uL (1.8-7.7); NEUT % 80 % (31-73); PLATELET COUNT 195 x10^3/uL (140-400); RED BLOOD COUNT 5.52 x10^6/uL (4.30-5.70); RED CELL DISTRIBUTION WIDTH 13.8 % (11.5-14.5); WHITE BLOOD COUNT 9.2 x10^3/uL (4.0-11.0)
[2017-06-17] MEDS: LUBIPROSTONE 8 MCG CAPSULE PO ×2 (07:46→15:51)
[2017-06-17] MEDS: MAGNESIUM HYDROXIDE 2,400 MG/30 ML ORAL.SUSP. PO ×2 (09:00→21:00)
[2017-06-17] MEDS: OMEGA-3 FATTY ACIDS/FISH OIL 1,000 MG CAPSULE. PO (09:21)
[2017-06-17] MEDS: PANTOPRAZOLE 40 MG TABLET.DR. PO (09:21)
[2017-06-17] MEDS: TAMSULOSIN 0.4 MG CAP.ER.24H. PO (09:21)
[2017-06-17] MEDS: ASPIRIN 325 MG TABLET PO (09:21)
[2017-06-17] MEDS: DOCUSATE SODIUM 100 MG CAPSULE. PO (09:21)
[2017-06-17] MEDS: POLYETHYLENE GLYCOL 3350 17 GM PACKET. PO (09:21)
[2017-06-17] MEDS: LACTOBACILLUS RHAMNOSUS GG 1 CAPSULE. PO ×2 (09:21→21:31)
[2017-06-17] MEDS: METOPROLOL TART IMMED RELEASE 25 MG TABLET. PO ×2 (09:22→21:32)
[2017-06-17] MEDS: cefTRIAXone IV Push 1 GM VIAL. IVP ×2 (09:22→21:53)
[2017-06-17] MEDS: CLOPIDOGREL BISULFATE 75 MG TABLET PO (09:40)
[2017-06-17] MEDS: IV NORMAL SALINE 1000ML BAG 1,000 ML IV (09:40)
[2017-06-17] MEDS ORDERED: ALBUTEROL SULFATE 2.5 MG/3 ML NEBU. NEB (12:30)
[2017-06-17] MEDS: ENOXAPARIN 40 MG/0.4 ML SYRINGE. SQ (17:56)
[2017-06-17] MEDS: ATORVASTATIN CALCIUM 40 MG TABLET. PO (21:31)
[2017-06-18] MEDS: IV NORMAL SALINE 1000ML BAG 1,000 ML IV ×2 (00:05→13:25)
[2017-06-18 05:02] LABS: ADD MAN DIFF? NO
[2017-06-18 05:07] LABS: BASO # 0.1 x10^3/uL (0.0-0.2); BASO % 1 % (0-3); EOS # 0.2 x10^3/uL (0.0-0.7); EOS % 2 % (0-3); HEMATOCRIT 48.9 % (39.0-53.0); HEMOGLOBIN 16.9 g/dL (13.0-17.5); LYMPH # 0.9 x10^3/uL (1.0-4.8); LYMPH % 10 % (24-48); MEAN CORPUSCULAR HEMOGLOBIN 31 pg (25-35); MEAN CORPUSCULAR HGB CONC 35 g/dL (31-37); MEAN CORPUSCULAR VOLUME 90 fL (79-100); MONO # 0.8 x10^3/uL (0.0-1.1); MONO % 9 % (0-9); NEUT # 7.1 x10^3uL (1.8-7.7); NEUT % 79 % (31-73); PLATELET COUNT 212 x10^3/uL (140-400); RED BLOOD COUNT 5.41 x10^6/uL (4.30-5.70)
[2017-06-18 05:28] LABS: ANION GAP 4 (6-14); BLOOD UREA NITROGEN 15 mg/dL (8-26); CALCIUM 8.9 mg/dL (8.5-10.1); CARBON DIOXIDE 31 mmol/L (21-32); CHLORIDE 104 mmol/L (98-107); CREATININE 1.3 mg/dL (0.7-1.3); GFR 54.6; GLUCOSE 147 mg/dL (70-99); POTASSIUM 3.9 mmol/L (3.5-5.1); SODIUM 139 mmol/L (136-145)
[2017-06-18] MEDS: AMPICILLIN SODIUM IV Push 2 GM VIAL. IVP ×2 (05:33→11:51)
[2017-06-18] MEDS: PANTOPRAZOLE 40 MG TABLET.DR. PO (07:52)
[2017-06-18] MEDS: LUBIPROSTONE 8 MCG CAPSULE PO (07:53)
[2017-06-18] MEDS: MAGNESIUM HYDROXIDE 2,400 MG/30 ML ORAL.SUSP. PO (09:00)
[2017-06-18] MEDS: DOCUSATE SODIUM 100 MG CAPSULE. PO (09:00)
[2017-06-18] MEDS: POLYETHYLENE GLYCOL 3350 17 GM PACKET. PO (09:01)
[2017-06-18] MEDS: OMEGA-3 FATTY ACIDS/FISH OIL 1,000 MG CAPSULE. PO (09:02)
[2017-06-18] MEDS: CLOPIDOGREL BISULFATE 75 MG TABLET PO (09:03)
[2017-06-18] MEDS: LACTOBACILLUS RHAMNOSUS GG 1 CAPSULE. PO (09:04)
[2017-06-18] MEDS: METOPROLOL TART IMMED RELEASE 25 MG TABLET. PO (09:05)
[2017-06-18] MEDS: cefTRIAXone IV Push 1 GM VIAL. IVP (09:15)
[2017-06-18] MEDS: NYSTATIN 100,000 UNITS/ML 5 ML ORAL.SUSP. SWSW ×2 (09:16→14:06)
[2017-06-18] MEDS: ASPIRIN 325 MG TABLET PO (09:23)
== END 2017-06-18 15:30 | disposition home health service (06) | DRG 854 ==
LOC: ER 10:09 → 6 SOUTH 06-08 13:07 → 5 NORTH 12:41 → 2 NORTH 06-14 20:21 → 1 WEST ICU 20:10
PROC: 02HV33Z Insertion of Infusion Device into Superior Vena Cava, Percutaneous Approach (ICD-10-PCS; principal; 2017-06-14 15:53)
PROC: 0TC78ZZ Extirpation of Matter from Left Ureter, Via Natural or Artificial Opening Endoscopic (ICD-10-PCS; 2017-06-14 15:53)
PROC: B5181ZA Fluoroscopy of Superior Vena Cava using Low Osmolar Contrast, Guidance (ICD-10-PCS; 2017-06-14 15:53)
PROC: B548ZZA Ultrasonography of Superior Vena Cava, Guidance (ICD-10-PCS; 2017-06-14 15:53)
PROC: BT1F1ZZ Fluoroscopy of Left Kidney, Ureter and Bladder using Low Osmolar Contrast (ICD-10-PCS; 2017-06-14 15:53)
PROC: 0T778DZ Dilation of Left Ureter with Intraluminal Device, Via Natural or Artificial Opening Endoscopic (ICD-10-PCS; 2017-06-14 15:53)
DX: A41.81 Sepsis due to Enterococcus (principal); N17.9 Acute kidney failure, unspecified; D69.59 Other secondary thrombocytopenia; I42.9 Cardiomyopathy, unspecified; D75.1 Secondary polycythemia; I07.1 Rheumatic tricuspid insufficiency; I48.1 Persistent atrial fibrillation; J93.83 Other pneumothorax; K57.92 Diverticulitis of intestine, part unspecified, without perforation or abscess without bleeding; N13.6 Pyonephrosis; E78.00 Pure hypercholesterolemia, unspecified; E78.5 Hyperlipidemia, unspecified; G47.33 Obstructive sleep apnea (adult) (pediatric); I10 Essential (primary) hypertension; I25.10 Atherosclerotic heart disease of native coronary artery without angina pectoris; I45.10 Unspecified right bundle-branch block; I48.0 Paroxysmal atrial fibrillation; K21.9 Gastro-esophageal reflux disease without esophagitis; K22.70 Barrett's esophagus without dysplasia; K52.9 Noninfective gastroenteritis and colitis, unspecified; K59.09 Other constipation; K64.9 Unspecified hemorrhoids; M47.816 Spondylosis without myelopathy or radiculopathy, lumbar region; E66.9 Obesity, unspecified; N40.1 Benign prostatic hyperplasia with lower urinary tract symptoms; R33.8 Other retention of urine; Z79.2 Long term (current) use of antibiotics; Z79.82 Long term (current) use of aspirin; Z79.899 Other long term (current) drug therapy; Z82.49 Family history of ischemic heart disease and other diseases of the circulatory system; Z87.442 Personal history of urinary calculi; Z87.891 Personal history of nicotine dependence; Z95.5 Presence of coronary angioplasty implant and graft; Z68.29 Body mass index [BMI] 29.0-29.9, adult; Z88.1 Allergy status to other antibiotic agents
CPT/HCPCS: 36415; 36569; 70450; 71045; 74018; 74176; 76000; 76937; 77001; 78708; 80048; 80053; 80076; 80307; 81001; 81270; 82553; 82668; 83605; 83690; 83735; 83880; 84443; 84484; 85007; 85025; 85610; 87040; 87086; 87205; 87641; 87804; 87804-59; 93005; 93306; 93312; 93325; 96374; 96375; 97161-GP; 97165-GO; 99285; 99285-25; A9562; C1751; C1769; C1892; C2617; J0290; J0690; J0696; J1100; J1160; J1650; J1940; J1956; J2270; J2370; J2405; J2543; J2704; J2710; J2997; J3010; J3490; J7030; J7120; Q9967; S0028

== ENCOUNTER → 2017-06-29 | Outpatient (CLI) | payer BC, MEDICARE | END | disposition home or self-care (01) | LOC: KCIC US 10:51 | DX: N13.2 Hydronephrosis with renal and ureteral calculous obstruction (principal); Z87.442 Personal history of urinary calculi | CPT/HCPCS: 76770 ==

== ENCOUNTER → 2017-07-16 | Outpatient (CLI) | payer BC, MEDICARE | END | disposition home or self-care (01) | LOC: OPS 13:56 | DX: Z45.2 Encounter for adjustment and management of vascular access device (principal) | CPT/HCPCS: 99211 ==

== ENCOUNTER → 2017-09-14 | Day surgery (SDC) | payer BC, MEDICARE ==
[~2017-09-14] MED LIST changes: +0.9 % SODIUM CHLORIDE 10 ML DISP.SYRIN. IV; -ASPI-630 PO; -ASPI325T8 PO; -CHOL200074 PO; -CLOP75TA57 PO; -CRESTOR5 MG PO; -FURO-69 PO; -LECI400C PO; +LIDOCAINE 2% PF Vial for OR 5 ML VIAL.; -LIPITOR80 MG PO; -LISD50CA3 PO; -LISI-338 PO; -METO-239 PO; -NITR0.4T SL; -OMEG300C PO; -OMEP20CA9 PO; +PROPOFOL 20 ML IV; -SAW100PO MC; -TAMS0.4C2 PO; -TEST200V3 IM; -VITA100T PO
[2017-09-14] MEDS: IV RINGERS,LACTATED 1000ML 1,000 ML IV (10:12)
[2017-09-14 10:27] LABS: ANION GAP 6 (6-14); BLOOD UREA NITROGEN 24 mg/dL (8-26); CALCIUM 8.5 mg/dL (8.5-10.1); CARBON DIOXIDE 27 mmol/L (21-32); CHLORIDE 105 mmol/L (98-107); CREATININE 1.1 mg/dL (0.7-1.3); GFR 66.2; GLUCOSE 123 mg/dL (70-99); POTASSIUM 4.4 mmol/L (3.5-5.1); SODIUM 138 mmol/L (136-145)
== END ==
LOC: SURG 09:25
DX: I48.91 Unspecified atrial fibrillation (principal); I50.22 Chronic systolic (congestive) heart failure; I25.5 Ischemic cardiomyopathy; I49.5 Sick sinus syndrome; I45.10 Unspecified right bundle-branch block; I10 Essential (primary) hypertension; G47.30 Sleep apnea, unspecified; E78.00 Pure hypercholesterolemia, unspecified; K21.9 Gastro-esophageal reflux disease without esophagitis; N40.1 Benign prostatic hyperplasia with lower urinary tract symptoms; F17.200 Nicotine dependence, unspecified, uncomplicated; Z95.810 Presence of automatic (implantable) cardiac defibrillator; Z79.899 Other long term (current) drug therapy; Z79.82 Long term (current) use of aspirin; Z98.49 Cataract extraction status, unspecified eye; Z98.890 Other specified postprocedural states; Z72.89 Other problems related to lifestyle
CPT/HCPCS: 36415; 80048; 83735; 92960; 93005; J2001; J2704

== ENCOUNTER → 2018-11-08 | Outpatient (CLI) | payer BC ==
[2017-09-14 11:58] VITALS: BP 115/71
[~2018-11-08] MED LIST changes: -0.9 % SODIUM CHLORIDE 10 ML DISP.SYRIN. IV; +APIX5TAB PO; +ASPI-630 PO; +ASPI325T8 PO; +BYSTOLIC5 MG PO; +CHOL200074 PO; +CLOP75TA57 PO; +CRESTOR5 MG PO; +CYAN250012 PO; +FURO-69 PO; +LECI400C PO; -LIDOCAINE 2% PF Vial for OR 5 ML VIAL.; +LIPITOR80 MG PO; +LISD50CA3 PO; +LISI-338 PO; +MAGN400C PO; +METO-239 PO; +METO25TA4 PO; +NAPR500T8 PO; +NITR0.4T SL; +OMEG300C PO; +OMEP20CA10 PO; +PANT20TA2 PO; +PRAS25CA6 PO; +PRAS50CA PO; -PROPOFOL 20 ML IV; +PSYL3.4P PO; +Progesterone PO; +SAW100PO MC; +TAMS0.4C2 PO; +TEST200V3 IM; +VITA100T PO; +VITA1CAP5 PO; +VITA40TA PO; +[UNRECOGNIZED DRUG - OTHER]; +testosterone
--- NOTE | 2018-11-09 21:37 | KCIC ---
Renal ultrasound 11/08/2018 CLINICAL HISTORY: Hypodense lesion seen involving the left kidney on CT scan. TECHNIQUE: A real-time ultrasound examination of both kidneys and the urinary bladder was performed. Multiple images were obtained. FINDINGS: Comparison is made to a CT scan of the abdomen dated 11/12/2017. Both kidneys are within normal limits in size. The right kidney measures 13.2 cm in length. The left kidney measures 12.4 cm in length. A 2.4 cm cyst is seen involving the midpole the left kidney which corresponds to the abnormality seen on the patients CT scan. No additional abnormality of either kidney is seen. No renal calculus is noted. There is no evidence of hydronephrosis. The urinary bladder is distended with urine. No abnormality is seen. IMPRESSION: Essentially negative study. Electronically signed by: Sandeep Ruelas MD (11/09/2018 9:35 PM) [facility]
== END | disposition home or self-care (01) ==
LOC: KCIC US 10:17
PROVIDERS: ATTEND Urology
DX: N28.1 Cyst of kidney, acquired (principal); N28.89 Other specified disorders of kidney and ureter; N32.89 Other specified disorders of bladder
CPT/HCPCS: 76770

== ENCOUNTER → 2019-12-09 | Outpatient (CLI) | payer BC ==
[2017-09-14 11:58] VITALS: BP 115/71
[~2019-12-09] MED LIST changes: +ATOR20TA PO; +FURO80TA3 PO; +MONT10TA49 PO; +MONT4GRA PO; -NITR0.4T SL; +NITR0.4T24 SL; -OMEP20CA10 PO; +OMEP20CA16 PO; +POTA20PA30 PO; +SPIR25TA5 PO; +TIOT4MIS3 IH
== END ==
LOC: LAB 15:00
PROVIDERS: ATTEND Internal Medicine Gastroenterology
DX: Z01.812 Encounter for preprocedural laboratory examination (principal); Z20.828 Contact with and (suspected) exposure to other viral communicable diseases; Z86.010 Personal history of colon polyps
CPT/HCPCS: U0003-CS

== ENCOUNTER → 2019-12-12 | Day surgery (SDC) | payer BC, MEDICARE ==
[~2019-12-12] MED LIST changes: +IV RINGERS,LACTATED 1000ML 1,000 ML IV SCH; +LIDOCAINE 2% PF 5 ML VIAL. ONE; +PROPOFOL 10 MG/ML (20ML) VIAL. IV ONE
--- NOTE | 2019-12-12 08:39 | HP ---
ADMIT DATE: 12/12/2019 REFERRING PHYSICIAN: None. HISTORY OF PRESENT ILLNESS: This is a 73-year-old male whose past medical history is significant for organic heart disease, hypertension, status post stents, cardiomyopathy, polycythemia as well as Nunez's, history of colonic polyps, who is seen for interval exams. Bowel habits have been regular without diarrhea or constipation. There has been previously treated for hep C. There have been no dysphagia, odynophagia, or bleeding. He is otherwise without additional complaints. PAST MEDICAL HISTORY: Organic heart disease, hypertension, status post CT, status post stenting, status post hep C; Nunez's; colonic polyps. ALLERGIES: ERYTHROMYCIN, ZOFRAN. MEDICATIONS: Include Lipitor, furosemide, Vyvanse, DHEA, spironolactone, and multivitamins. SOCIAL HISTORY: He is an ex-smoker, social drinker. FAMILY HISTORY: Noncontributory. REVIEW OF SYSTEMS: Per records. PHYSICAL EXAMINATION: GENERAL: Reveals a well-nourished, well-developed male who is alert, cooperative, in no acute distress. VITAL SIGNS: Temperature 97.2, pulse 77, respirations 20. LUNGS: Clear. CARDIOVASCULAR: Reveals an S1, S2 without S3, S4 or appreciable murmur. ABDOMEN: Reveals a soft abdomen, normal bowel sounds, without appreciable hepatosplenomegaly. EXTREMITIES: Reveals no cyanosis, clubbing or edema. IMPRESSION: 1. Nunez's. Surveillance exam is recommended at this time. Risks and benefits of procedure including risk and perforation were discussed. The patient is willing to proceed. 2. History of colonic polyps. Surveillance exam is indicated. The patient is willing to proceed at this time with the above risks and benefits discussed. LEODAN LEBRON MD DR: DEBBY/meka JOB#: [id number] / [id number]
[2019-12-12 08:45] VITALS: BP 104/69
--- NOTE | 2019-12-16 13:08 | PATHOLOGY ---
[facility] Accession Number: [id number] . 01 Material submitted: . PART A: esophagus - ESOPHAGEAL BIOPSIES PART B: hepatic flexure - HEPATIC FLEUXRE POLYP . 01 Clinical history: . HX POLYPS, BARRETTS . 02 Diagnosis: A. Esophagus, endoscopic biopsy: - Esophageal squamous and gastric cardia mucosa with intestinal metaplasia (Nunez's esophagus), with moderate chronic inflammation. - Negative for dysplasia and malignancy. . B. Large bowel, "hepatic flexure polyp", endoscopic biopsy: - Tubular adenoma; negative for high-grade dysplasia and malignancy. . (LINA:malcolm; 12/15/2019) [facility] 12/16/2019 1252 Local . 02 Electronically signed: . Sorin Cam MD, Pathologist NPI- [id number] . 01 Gross description: . A. Received in formalin labeled "Ousmane, Ye, esophageal BXs" are multiple wren-brown soft tissue fragments measuring in aggregate 1.5 x 0.6 x 0.1 cm. The specimen is submitted entirely in A1. . B. Received in formalin labeled "Tanney, Edshabnam, hepatic flexure polyp" are two wren-brown soft tissue fragments measuring in aggregate 0.7 x 0.7 x 0.2 cm. The specimen is submitted entirely in B1. ([facility] [place] 12/14/2019) [facility] 12/14/2019 1325 Local . 02 Pathologist provided ICD-10: K22.70, K20.90, D12.3 . 02 CPT . 812596, 550351 Specimen Comment: A courtesy copy of this report has been sent to [phone], [phone] Specimen Comment: [id number] Specimen Comment: Report sent to / DR TY Performed at: 01 [facility] [address], [place], [place] [id number] MD Roman Sorenson MD Phone: [phone] Performed at: 02 [facility] [address], [place] [id number] MD Juan Carlos Damico MD Phone: [phone]
== END ==
LOC: ENDOS 06:39
PROVIDERS: ATTEND Internal Medicine Gastroenterology
DX: Z12.11 Encounter for screening for malignant neoplasm of colon (principal); D12.3 Benign neoplasm of transverse colon; K22.70 Barrett's esophagus without dysplasia; K29.50 Unspecified chronic gastritis without bleeding; K64.0 First degree hemorrhoids; K57.30 Diverticulosis of large intestine without perforation or abscess without bleeding; I11.0 Hypertensive heart disease with heart failure; I50.9 Heart failure, unspecified; I25.2 Old myocardial infarction; Z86.010 Personal history of colon polyps; Z98.890 Other specified postprocedural states; Z79.899 Other long term (current) drug therapy
CPT/HCPCS: 43239; 45385; 88305; 96372; J2704

== ENCOUNTER 2020-04-15 21:58 | Inpatient (IN) | payer BC, MEDICARE ==
[~2020-04-15] VITALS: Ht 182.9 cm; Wt 106.0 kg
[~2020-04-15 21:58] MED LIST changes: -IV RINGERS,LACTATED 1000ML 1,000 ML IV SCH; -LIDOCAINE 2% PF 5 ML VIAL. ONE; -LISI-338 PO; +LISI-517 PO; -PROPOFOL 10 MG/ML (20ML) VIAL. IV ONE
--- NOTE | 2020-04-15 22:21 | PHYS DOC ---
Past Medical History Past Medical History: CAD, High Cholesterol Past Surgical History: Other Additional Past Surgical Histo: Cardiac STENT x 3, BILATERAL SHOULDER Smoking Status: Former Smoker Alcohol Use: Occasionally Drug Use: None Adult General Chief Complaint Chief Complaint: CHEST PAIN HPI HPI Patient is a 74 year old male with a past medical history of STEMI in August 2016 with 3 stents placed now presenting the emergency department for new onset of chest pain. Patient states that 90 minutes prior to arrival started with new onset of left anterior chest pain with radiation into the left arm. States that when this persisted he took a single nitroglycerin which improved his symptoms. Denies any radiation into the neck, back. No associated nausea or vomiting. Denies any fever, chills, shortness of breath, dizziness or lightheadedness. Patient states feels similar to his prior OH Review of Systems Review of Systems Constitutional: Denies fever or chills [] Eyes: Denies change in visual acuity, redness, or eye pain [] HENT: Denies nasal congestion or sore throat [] Respiratory: Denies cough or shortness of breath [] Cardiovascular: No additional information not addressed in HPI [] GI: Denies abdominal pain, nausea, vomiting, bloody stools or diarrhea [] : Denies dysuria or hematuria [] Musculoskeletal: Denies back pain or joint pain [] Integument: Denies rash or skin lesions [] Neurologic: Denies headache, focal weakness or sensory changes [] Endocrine: Denies polyuria or polydipsia [] All other systems were reviewed and found to be within normal limits, except as documented in this note. Current Medications Current Medications Current Medications Medications (Trade) Dose Ordered Sig/[facility] Start Time Stop Time Status Last Admin Dose Admin Aspirin (Aspirin Chewable) 324 mg 1X ONCE 04/15/20 23:00 04/15/20 23:01 DC 04/15/20 22:56 324 MG Morphine Sulfate (Morphine Sulfate) 4 mg 1X ONCE 04/15/20 23:30 04/15/20 23:31 DC 04/15/20 23:11 4 MG Nitroglycerin (Nitrostat) 0.4 mg PRN Q5MIN PRN 04/15/20 23:00 04/15/20 23:07 0.4 MG Prochlorperazine Edisylate (Compazine) 5 mg 1X ONCE 2/11/21 23:30 04/15/20 23:31 DC 04/15/20 23:08 5 MG Sodium Chloride 1,000 ml @ 1,000 mls/hr 1X ONCE 04/15/20 23:30 04/16/20 00:29 04/15/20 22:58 1,000 MLS/HR Allergies Allergies Allergies Coded Allergies Type Severity Reaction Last Updated Verified erythromycin base Allergy Intermediate Hives 12/12/19 Yes ondansetron Adverse Reaction Intermediate Increased nausea 12/12/19 Yes Physical Exam Physical Exam Constitutional: Well developed, well nourished, no acute distress, non-toxic appearance. [] HENT: Normocephalic, atraumatic, bilateral external ears normal, oropharynx moist, no oral exudates, nose normal. [] Eyes: PERRLA, EOMI, conjunctiva normal, no discharge. [] Neck: Normal range of motion, no tenderness, supple, no stridor. [] Cardiovascular:Heart rate regular rhythm, no murmur [] Lungs & Thorax: Bilateral breath sounds clear to auscultation [] Abdomen: Bowel sounds normal, soft, no tenderness, no masses, no pulsatile masses. [] Skin: Warm, dry, no erythema, no rash. [] Back: No tenderness, no CVA tenderness. [] Extremities: No tenderness, no cyanosis, no clubbing, ROM intact, no edema. [] Neurologic: Alert and oriented X 3, normal motor function, normal sensory function, no focal deficits noted. [] Psychologic: Affect normal, judgement normal, mood normal. [] Current Patient Data Vital Signs Vital Signs Date Time Temp Pulse Resp B/P (MAP) Pulse Ox O2 Delivery O2 Flow Rate FiO2 04/15/20 23:11 20 96 Room Air 04/15/20 23:07 89 130/74 04/15/20 22:05 98.7 98.7 Lab Values Laboratory Tests Test 04/15/20 22:20 White Blood Count 8.7 x10^3/uL (4.0-11.0) Red Blood Count 6.57 x10^6/uL (4.30-5.70) H Hemoglobin 19.8 g/dL (13.0-17.5) H Hematocrit 56.7 % (39.0-53.0) H Mean Corpuscular Volume 86 fL (79-100) Mean Corpuscular Hemoglobin 30 pg (25-35) Mean Corpuscular Hemoglobin Concent 35 g/dL (31-37) Red Cell Distribution Width 15.4 % (11.5-14.5) H Platelet Count 118 x10^3/uL (140-400) L Neutrophils (%) (Auto) 81 % (31-73) H Lymphocytes (%) (Auto) 10 % (24-48) L Monocytes (%) (Auto) 8 % (0-9) Eosinophils (%) (Auto) 1 % (0-3) Basophils (%) (Auto) 1 % (0-3) Neutrophils # (Auto) 7.1 x10^3/uL (1.8-7.7) Lymphocytes # (Auto) 0.8 x10^3/uL (1.0-4.8) L Monocytes # (Auto) 0.7 x10^3/uL (0.0-1.1) Eosinophils # (Auto) 0.1 x10^3/uL (0.0-0.7) Basophils # (Auto) 0.1 x10^3/uL (0.0-0.2) Sodium Level 136 mmol/L (136-145) Potassium Level 4.1 mmol/L (3.5-5.1) Chloride Level 101 mmol/L (98-107) Carbon Dioxide Level 24 mmol/L (21-32) Anion Gap 11 (6-14) Blood Urea Nitrogen 14 mg/dL (8-26) Creatinine 1.2 mg/dL (0.7-1.3) Estimated GFR (Cockcroft-Gault) 59.3 BUN/Creatinine Ratio 12 (6-20) Glucose Level 193 mg/dL (70-99) H Calcium Level 9.2 mg/dL (8.5-10.1) Magnesium Level 2.2 mg/dL (1.8-2.4) Total Bilirubin 0.8 mg/dL (0.2-1.0) Aspartate Amino Transferase (AST) 42 U/L (15-37) H Alanine Aminotransferase (ALT) 47 U/L (16-63) Alkaline Phosphatase 78 U/L (46-116) Troponin I Quantitative < 0.017 ng/mL (0.000-0.055) MC-Tsi-E-Type Natriuretic Peptide 92 pg/mL (0-124) Total Protein 7.4 g/dL (6.4-8.2) Albumin 3.7 g/dL (3.4-5.0) Albumin/Globulin Ratio 1.0 (1.0-1.7) Lipase 158 U/L (73-393) Laboratory Tests 04/15/20 22:20 Laboratory Tests 04/15/20 22:20 EKG EKG [] Radiology/Procedures Radiology/Procedures [] Course & Med Decision Making Course & Med Decision Making Pertinent Labs and Imaging studies reviewed. (See chart for details) 74M presenting with new onset of left anterior chest pain which does raise concern for acute OH. EKG was obtained and reviewed in does not demonstrate any significant changes from prior EKG obtained 2 years ago. Will obtain a full ACS work-up and reevaluate. 00:07 -initial work-up with blood work negative for any significant abnormality. EKG was reviewed without any significant changes from prior. At this time because the patient significant history will admit for chest pain observation and cardiology evjuliet Yeung Disclaimer Dragon Disclaimer This electronic medical record was generated, in whole or in part, using a voice recognition dictation system. Departure Departure Impression: Primary Impression: Chest pain Condition: GOOD Referrals: GO TY (PCP) TRINITY NAM MD Apr 15, 2020 22:21
--- NOTE | 2020-04-15 22:35 | RAD ---
XR CHEST 1V Clinical History: Reason: chest pain / Spl. Instructions: / History: Technique: AP view of the chest was obtained at 04/15/2020 10:28 PM. Comparison: August 08, 2017. Findings: The heart is borderline enlarged. The left-sided trilead defibrillator is again seen. The pulmonary v asculature is normal. The lungs and pleural margins are clear. Impression: Stable appearance of the chest. Electronically signed by: Bridger Triplett III, MD (04/15/2020 10:32 PM) [facility]
[2020-04-15 22:37] LABS: BASO # 0.1 x10^3/uL (0.0-0.2); BASO % 1 % (0-3); EOS # 0.1 x10^3/uL (0.0-0.7); EOS % 1 % (0-3); HEMATOCRIT 56.7 % (39.0-53.0); HEMOGLOBIN 19.8 g/dL (13.0-17.5); LYMPH # 0.8 x10^3/uL (1.0-4.8); LYMPH % 10 % (24-48); MEAN CORPUSCULAR HEMOGLOBIN 30 pg (25-35); MEAN CORPUSCULAR HGB CONC 35 g/dL (31-37); MEAN CORPUSCULAR VOLUME 86 fL (79-100); MONO # 0.7 x10^3/uL (0.0-1.1); MONO % 8 % (0-9); NEUT # 7.1 x10^3/uL (1.8-7.7); NEUT % 81 % (31-73); PLATELET COUNT 118 x10^3/uL (140-400); RED BLOOD COUNT 6.57 x10^6/uL (4.30-5.70); RED CELL DISTRIBUTION WIDTH 15.4 % (11.5-14.5); WHITE BLOOD COUNT 8.7 x10^3/uL (4.0-11.0)
[2020-04-15 22:48] LABS: CALCIUM 9.2 mg/dL (8.5-10.1); CREATININE 1.2 mg/dL (0.7-1.3); GFR 59.3; POTASSIUM 4.1 mmol/L (3.5-5.1)
[2020-04-15 22:54] LABS: ALBUMIN 3.7 g/dL (3.4-5.0); MAGNESIUM 2.2 mg/dL (1.8-2.4); TOTAL BILIRUBIN 0.8 mg/dL (0.2-1.0); TOTAL PROTEIN 7.4 g/dL (6.4-8.2)
[2020-04-15] MEDS ORDERED: NITROGLYCERIN SUBLINGUAL 0.4 MG BOTTLE OF 25. SL PRN (23:00)
[2020-04-15] MEDS ORDERED: ASPIRIN CHEWABLE 81 MG TABLET. PO ONE (23:00)
[2020-04-15] MEDS ORDERED: MORPHINE SULFATE 4 MG/ML VIAL. IV ONE (23:30)
[2020-04-15] MEDS ORDERED: IV NORMAL SALINE 1000ML BAG 1,000 ML IV ONE (23:30)
[2020-04-15] MEDS ORDERED: PROCHLORPERAZINE 10 MG/2 ML VIAL. IV ONE (23:30)
[2020-04-16] VITALS (14 sets, daily range): BP systolic 101–147; BP diastolic 53–95
--- NOTE | 2020-04-16 00:31 | EKG ---
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
[2020-04-16] MEDS ORDERED: MONT10TA20 PO (02:14)
[2020-04-16] MEDS ORDERED: LOSA25TA12 PO (02:14)
[2020-04-16] MEDS ORDERED: PANT40TA6 PO (02:14)
[2020-04-16 07:51] LABS: BILIRUBIN,URINE NEGATIVE (NEG); CLARITY,URINE CLEAR; COLOR,URINE YELLOW; NITRITE,URINE NEGATIVE (NEG); PROTEIN,URINE NEGATIVE (NEG-TRACE); UROBILINOGEN,URINE 0.2 mg/dL (0.2 mg/dL)
[2020-04-16 08:19] LABS: BACTERIA,URINE 0 /HPF (0-FEW); RBC,URINE 0 /HPF (0-2); WBC,URINE 0 /HPF (0-4)
--- NOTE | 2020-04-16 10:45 | PDOC2 ---
ALVIN ALEXANDER PANTS CLOSER 04/16/20 1045: CARDIAC CONSULT DATE OF CONSULT Date of Consult DATE: 04/16/20 TIME: 10:10 REASON FOR CONSULT Reason for Consult: Chest pain, elevated trop REFERRING PHYSICIAN Referring Physician: yumiko SOURCE Source: Chart review, Patient HISTORY OF PRESENT ILLNESS HISTORY OF PRESENT ILLNESS This is a pleasant 74 yo male admitted for complains of chest pain. Reports that he had some jaw tightness yesterday then last night started having stabbing left chest pain with numbness to his left arm. No n/v and no respiratory symptoms. No fever or chills. and denies any prior exposure to covid-19. He took NTG x2 got better but then his CP came back. He has been compliant with his medications but has not taken ASA reports of making him slow to think and also plavix giving him erection issues. No recent falls or injury. No SOA. PAST MEDICAL HISTORY Past Medical History Cardiovascular: CAD, HTN, Hyperlipidemia, [place], cardiomyopathy Pulmonary: Other (spont PTX) GI: GERD, barretts Heme/Onc: No pertinent hx Hepatobiliary: No pertinent hx Psych: No pertinent hx Rheumatologic: No pertinent hx Infectious disease: No pertinent hx ENT: No pertinent hx Renal/: pyelonephritis, BPH, urethral stricture, urinary retention Endocrine: No pertinent hx Dermatology: No pertinent hx PAST SURGICAL HISTORY Past Surgical History UNDERGROUND ROOF BOLTER-D, PCI/stents FAMILY HISTORY Family History: Family History Unknown SOCIAL HISTORY Smoke: Quit ALCOHOL: occassional Drugs: None Lives: with Family CURRENT MEDICATIONS CURRENT MEDICATIONS Current Medications Medications (Trade) Dose Ordered Sig/Nancy Route PRN Reason Start Time Stop Time Status Last Admin Dose Admin Aspirin (Aspirin Chewable) 324 mg 1X ONCE PO 04/15/20 23:00 04/15/20 23:01 DC 04/15/20 22:56 Sodium Chloride 1,000 ml @ 1,000 mls/hr 1X ONCE IV 04/15/20 23:30 04/16/20 00:29 DC 04/15/20 22:58 Morphine Sulfate (Morphine Sulfate) 4 mg 1X ONCE IV 04/15/20 23:30 04/15/20 23:31 DC 04/15/20 23:11 Prochlorperazine Edisylate (Compazine) 5 mg 1X ONCE IV 04/15/20 23:30 04/15/20 23:31 DC 04/15/20 23:08 Nitroglycerin (Nitrostat) 0.4 mg PRN Q5MIN PRN SL CHEST PAIN 04/15/20 23:00 04/15/20 23:07 ALLERGIES ALLERGIES: Coded Allergies: erythromycin base (Verified Allergy, Intermediate, Hives, 12/12/19) ondansetron (Verified Adverse Reaction, Intermediate, Increased nausea, 12/12/19) ROS Review of System 14 point ROS evaluated with pertinent positives noted per HPI PHYSICAL EXAM General: Alert, Oriented X3, Cooperative, No acute distress HEENT: Atraumatic, Mucous membr. moist/pink Lungs: Clear to auscultation, Normal air movement Heart: Regular rate (SR), Normal S1, Normal S2, No murmurs Abdomen: Soft, No tenderness Extremities: No cyanosis, No edema Skin: No breakdown, No significant lesion Neuro: Normal speech, Sensation intact Psych/Mental Status: Mental status NL, Mood NL MUSCULOSKELETAL: Osteoarthritic changes both hands VITALS/I&O VITALS/I&O: Vital Signs Date Time Temp Pulse Resp B/P (MAP) Pulse Ox O2 Delivery O2 Flow Rate FiO2 04/16/20 07:00 97.4 80 16 124/61 (82) 94 Room Air 97.4 I & O 04/15/20 04/15/20 04/16/20 15:00 23:00 07:00 Intake Total 120 ml Output Total 200 ml Balance -80 ml LABS Lab: Laboratory Tests Test 04/15/20 22:20 04/16/20 04:10 04/16/20 06:50 White Blood Count 8.7 x10^3/uL (4.0-11.0) Red Blood Count 6.57 x10^6/uL (4.30-5.70) H Hemoglobin 19.8 g/dL (13.0-17.5) H Hematocrit 56.7 % (39.0-53.0) H Mean Corpuscular Volume 86 fL (79-100) Mean Corpuscular Hemoglobin 30 pg (25-35) Mean Corpuscular Hemoglobin Concent 35 g/dL (31-37) Red Cell Distribution Width 15.4 % (11.5-14.5) H Platelet Count 118 x10^3/uL (140-400) L Neutrophils (%) (Auto) 81 % (31-73) H Lymphocytes (%) (Auto) 10 % (24-48) L Monocytes (%) (Auto) 8 % (0-9) Eosinophils (%) (Auto) 1 % (0-3) Basophils (%) (Auto) 1 % (0-3) Neutrophils # (Auto) 7.1 x10^3/uL (1.8-7.7) Lymphocytes # (Auto) 0.8 x10^3/uL (1.0-4.8) L Monocytes # (Auto) 0.7 x10^3/uL (0.0-1.1) Eosinophils # (Auto) 0.1 x10^3/uL (0.0-0.7) Basophils # (Auto) 0.1 x10^3/uL (0.0-0.2) Sodium Level 136 mmol/L (136-145) Potassium Level 4.1 mmol/L (3.5-5.1) Chloride Level 101 mmol/L (98-107) Carbon Dioxide Level 24 mmol/L (21-32) Anion Gap 11 (6-14) Blood Urea Nitrogen 14 mg/dL (8-26) Creatinine 1.2 mg/dL (0.7-1.3) Estimated GFR (Cockcroft-Gault) 59.3 BUN/Creatinine Ratio 12 (6-20) Glucose Level 193 mg/dL (70-99) H Calcium Level 9.2 mg/dL (8.5-10.1) Magnesium Level 2.2 mg/dL (1.8-2.4) Total Bilirubin 0.8 mg/dL (0.2-1.0) Aspartate Amino Transferase (AST) 42 U/L (15-37) H Alanine Aminotransferase (ALT) 47 U/L (16-63) Alkaline Phosphatase 78 U/L (46-116) Troponin I Quantitative < 0.017 ng/mL (0.000-0.055) 0.259 ng/mL (0.000-0.055) NF-Pdo-H-Type Natriuretic Peptide 92 pg/mL (0-124) Total Protein 7.4 g/dL (6.4-8.2) Albumin 3.7 g/dL (3.4-5.0) Albumin/Globulin Ratio 1.0 (1.0-1.7) Lipase 158 U/L (73-393) Urine Collection Type Unknown Urine Color Yellow Urine Clarity Clear Urine pH 6.0 (<5.0-8.0) Urine Specific [place] 1.025 (1.000-1.030) Urine Protein Negative mg/dL (NEG-TRACE) Urine Glucose (UA) 500 mg/dL (NEG) Urine Ketones (Stick) Negative mg/dL (NEG) Urine Blood Negative (NEG) Urine Nitrite Negative (NEG) Urine Bilirubin Negative (NEG) Urine Urobilinogen Dipstick 0.2 mg/dL (0.2 mg/dL) Urine Leukocyte Esterase Negative (NEG) Urine RBC 0 /HPF (0-2) Urine WBC 0 /HPF (0-4) Urine Bacteria 0 /HPF (0-FEW) Urine Mucus Slight /LPF Laboratory Tests 04/15/20 22:20 Laboratory Tests 04/15/20 22:20 ECHOCARDIOGRAM ECHOCARDIOGRAM <Conclusion> The left ventricle is normal size. Left ventricle systolic function is severely impaired. The Ejection Fraction is estimated at 25%. There is global hypokinesis of the left ventricle most prominent at the apex. There is mild concentric left ventricular hypertrophy. There are device leads in the right ventricle and atrium. Doppler and Color Flow revealed no significant aortic regurgitation. There is no significant aortic valvular stenosis. Doppler and Color Flow revealed trace mitral valve regurgitation. Doppler and Color Flow revealed mild tricuspid regurgitation. The PA pressure was estimated at 37 mmHg. DATE: 02/17/20 [id number] STRESS TEST STRESS TEST Conclusion 1. The patient remains in a V paced rhythm throughout the test. 2. Nuclear imaging shows an inferior wall infarct with possible mild dulce- infarct ischemia approaching the apex. 3. Left ventricular systolic function is moderately decreased with an ejection fraction of 38%. There is inferior wall hypokinesis and mild generalized hypokinesis. 4. Moderate risk test consistent with a previous infarct with possible mild dulce-infarct ischemia and a decreased ejection fraction at 38%. DATE: 02/17/20 [id number] 0 HEART CATH HEART CATH FINDINGS a. The left main coronary artery arose from the left sinus of Valsalva, gave rise to the left anterior descending and left circumflex arteries and did not sh ow any significant stenosis. b. The left anterior descending artery showed patent stent in the midsegment. The first diagonal branch which is a medium caliber vessel showed 80% ostial stenosis and 90% proximal segment stenosis. c. The left circumflex artery did not show any significant stenosis. d. The right coronary artery was a large and dominant vessel arising from the right sinus of Valsalva that showed widely patent stent in the proximal to midsegment. INTERVENTION The left main coronary artery was engaged with a 6 [place] EBU 3.5 guide catheter and the stenoses in the ostial and proximal segments of the diagonal branch were crossed with a 0.014 inch fabrooms guidewire. These were predilated with a 2.5 x 12 mm trek balloon following which the lesions was successfully treated with a 2.75 x 28 mm Xience Alpine drug-eluting stent. Follow-up angiography showed resolution of both the stenoses to 0% with LEXY-3 distal flow. Patient tolerated the procedure well. Hemostasis was achieved using TR band. There were no immediate complications. Conclusion 1. Patent previously placed stents in the left anterior descending and right coronary arteries. The first diagonal branch which is a good caliber vessel showed 80% ostial segment stenosis and 90% proximal segment stenosis. 2. Successful PCI/drug eluting stent placement to the diagonal branch of left anterior descending artery. Recommendations 1. Aspirin 325 mg daily 2. Plavix 75 mg daily for preferably one year 3. Cardiovascular risk factor modification DATE: 05/28/17 1703 ASSESSMENT/PLAN ASSESSMENT/PLAN 1. NSTEMI: typical 2. CAD: past stents 3. HTN: controlled 4. HLP 5. ICM: compensated 6. Chronic systolic CHF: compensated 7. UNDERGROUND ROOF BOLTER-D insitu: Biotronik, normal function, no arrhythmias. 0 afib burden 8. Polycythemia and mild thrombocytopenia: on testosterone therapy 9. PAFIB: past ablation BiV pacing 100% Recommendations 1. LHC with possible PCI, risks and benefits discussed and agreeable to proceed. Covid-19 rapid swab pending 2. GDMT 3. Discussed compliance to DAPT 4. May need to readdress testosterone therapy, will defer to PCP ACE GRAYSON MD 04/16/20 2610: CARDIAC CONSULT ASSESSMENT/PLAN ASSESSMENT/PLAN Patient seen and examined. Agree with SERVICE AIDE's assessment and plan. Patient presented with non-STEMI, presently chest pain-free. Plan for cardiac catheterization and possible angioplasty. Risks and benefits were explained and he is agreeable. Importance of compliance with medications reemphasized. Chronic systolic heart failure well compensated. PAF s/p ablation therapy. UNDERGROUND ROOF BOLTER-D with recent device interrogation showing normal function. Thank you for your consultation. ALVIN ALEXANDER APRN Apr 16, 2020 10:45 ACE GRAYSON MD Apr 16, 2020 13:48
--- NOTE | 2020-04-16 10:58 | PDOC ---
[facility] PROGRESS NOTE Date of Service DOS: DATE: 04/16/20 TIME: 10:54 Chief Complaint Chief Complaint Chest Pain History of Present Illness History of Present Illness 04/16 -patient very happy with his care here. 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 Mentioned elevated Hgb (19.8 on 04/16) and hematocrit (56.7). Pt takes Testosterone and believes this to be the cause as he has repeated phlebotomies. Pt denies smoking. Troponin was elevated today at 0.256, with creatinine of 1.2. Patient is a 74 y/o male that presented to the ED with chest pain and pain radiating to the left arm. Pt has a history of a STEMI in August 2016 and had 3 stents placed. In ED pt took some nitroglycerin which improved his symptoms. Denies any radiation into the neck, back. No associated nausea or vomiting. Denies any fever, chills, shortness of breath, dizziness or lightheadedness. Patient states feels similar to his prior [place] Chest x-ray showed a borderline enlarged heart. Vitals/I&O Vitals/I&O: Vital Signs Date Time Temp Pulse Resp B/P (MAP) Pulse Ox O2 Delivery O2 Flow Rate FiO2 04/16/20 07:00 97.4 80 16 124/61 (82) 94 Room Air 97.4 I & O 04/15/20 04/15/20 04/16/20 15:00 23:00 07:00 Intake Total 120 ml Output Total 200 ml Balance -80 ml Physical Exam General: Alert, Oriented X3, Cooperative, No acute distress Lungs: Clear, Other Extremities: No clubbing, No cyanosis Skin: No rashes Labs Labs: Laboratory Tests Test 04/15/20 22:20 04/16/20 04:10 04/16/20 06:50 White Blood Count 8.7 x10^3/uL (4.0-11.0) Red Blood Count 6.57 x10^6/uL (4.30-5.70) Hemoglobin 19.8 g/dL (13.0-17.5) Hematocrit 56.7 % (39.0-53.0) Mean Corpuscular Volume 86 fL (79-100) Mean Corpuscular Hemoglobin 30 pg (25-35) Mean Corpuscular Hemoglobin Concent 35 g/dL (31-37) Red Cell Distribution Width 15.4 % (11.5-14.5) Platelet Count 118 x10^3/uL (140-400) Neutrophils (%) (Auto) 81 % (31-73) Lymphocytes (%) (Auto) 10 % (24-48) Monocytes (%) (Auto) 8 % (0-9) Eosinophils (%) (Auto) 1 % (0-3) Basophils (%) (Auto) 1 % (0-3) Neutrophils # (Auto) 7.1 x10^3/uL (1.8-7.7) Lymphocytes # (Auto) 0.8 x10^3/uL (1.0-4.8) Monocytes # (Auto) 0.7 x10^3/uL (0.0-1.1) Eosinophils # (Auto) 0.1 x10^3/uL (0.0-0.7) Basophils # (Auto) 0.1 x10^3/uL (0.0-0.2) Sodium Level 136 mmol/L (136-145) Potassium Level 4.1 mmol/L (3.5-5.1) Chloride Level 101 mmol/L (98-107) Carbon Dioxide Level 24 mmol/L (21-32) Anion Gap 11 (6-14) Blood Urea Nitrogen 14 mg/dL (8-26) Creatinine 1.2 mg/dL (0.7-1.3) Estimated GFR (Cockcroft-Gault) 59.3 BUN/Creatinine Ratio 12 (6-20) Glucose Level 193 mg/dL (70-99) Calcium Level 9.2 mg/dL (8.5-10.1) Magnesium Level 2.2 mg/dL (1.8-2.4) Total Bilirubin 0.8 mg/dL (0.2-1.0) Aspartate Amino Transf (AST/SGOT) 42 U/L (15-37) Alanine Aminotransferase (ALT/SGPT) 47 U/L (16-63) Alkaline Phosphatase 78 U/L (46-116) Troponin I Quantitative < 0.017 ng/mL (0.000-0.055) 0.259 ng/mL (0.000-0.055) KB-Edu-F-Type Natriuretic Peptide 92 pg/mL (0-124) Total Protein 7.4 g/dL (6.4-8.2) Albumin 3.7 g/dL (3.4-5.0) Albumin/Globulin Ratio 1.0 (1.0-1.7) Lipase 158 U/L (73-393) Urine Collection Type Unknown Urine Color Yellow Urine Clarity Clear Urine pH 6.0 (<5.0-8.0) Urine Specific [place] 1.025 (1.000-1.030) Urine Protein Negative mg/dL (NEG-TRACE) Urine Glucose (UA) 500 mg/dL (NEG) Urine Ketones (Stick) Negative mg/dL (NEG) Urine Blood Negative (NEG) Urine Nitrite Negative (NEG) Urine Bilirubin Negative (NEG) Urine Urobilinogen Dipstick 0.2 mg/dL (0.2 mg/dL) Urine Leukocyte Esterase Negative (NEG) Urine RBC 0 /HPF (0-2) Urine WBC 0 /HPF (0-4) Urine Bacteria 0 /HPF (0-FEW) Urine Mucus Slight /LPF Review of Systems Review of Systems: No new complaints Assessment and Plan Assessmemt and Plan Assessment Chest pain with known coronary disease High Cholesterol Cardiac STENT x 3, BILATERAL SHOULDER Former Smoker Plan Cardiology consulted Probable cardiac catheter Serial Enzymes, ECG (consider ck-mb) Cardiac monitoring Covid rapid and PCR tests pending Possible reassessment of Testosterone use Discussed plan with staff DVT prophylaxis Home meds Comment Review of Relevant I have reviewed the following items justina (where applicable) has been applied. Medications: Current Medications Medications (Trade) Dose Ordered Sig/Nancy Route PRN Reason Start Time Stop Time Status Last Admin Dose Admin Aspirin (Aspirin Chewable) 324 mg 1X ONCE PO 04/15/20 23:00 04/15/20 23:01 DC 04/15/20 22:56 Sodium Chloride 1,000 ml @ 1,000 mls/hr 1X ONCE IV 04/15/20 23:30 04/16/20 00:29 DC 04/15/20 22:58 Morphine Sulfate (Morphine Sulfate) 4 mg 1X ONCE IV 04/15/20 23:30 04/15/20 23:31 DC 04/15/20 23:11 Prochlorperazine Edisylate (Compazine) 5 mg 1X ONCE IV 04/15/20 23:30 04/15/20 23:31 DC 04/15/20 23:08 Nitroglycerin (Nitrostat) 0.4 mg PRN Q5MIN PRN SL CHEST PAIN 04/15/20 23:00 04/15/20 23:07 Justifications for Admission Other Justification PIETER JOHN III DO Apr 16, 2020 10:58
[2020-04-16 11:28] LABS: CHOLESTEROL/HDL RATIO 3.9
[2020-04-16] MEDS ORDERED: VERAPAMIL 5 MG/2 ML VIAL. ONE (11:53)
[2020-04-16] MEDS ORDERED: IODIXANOL 320 MG/ML 100 ML VIAL. ONE ×2 (11:53→12:39)
[2020-04-16] MEDS ORDERED: fentaNYL PF VIAL 100 MCG/2 ML VIAL ONE (11:53)
[2020-04-16] MEDS ORDERED: HEPARIN for IV BOLUS 10,000 UNIT/10 ML VIAL. ONE (11:53)
[2020-04-16] MEDS ORDERED: MIDAZOLAM HCL/PF 2 MG/2 ML VIAL. ONE ×2 (11:53→12:20)
[2020-04-16] MEDS ORDERED: LIDOCAINE 1% PF 2 ML VIAL. ONE (11:53)
[2020-04-16] MEDS ORDERED: NITROGLYCERIN 200 MCG/2 ML SYRINGE FOR CATH/VASC LAB. ONE (11:54)
[2020-04-16] MEDS ORDERED: fentaNYL PF VIAL 100 MCG/2 ML VIAL IV ONE (12:00)
[2020-04-16] MEDS ORDERED: VERAPAMIL 5 MG/2 ML VIAL. IART ONE (12:00)
[2020-04-16] MEDS ORDERED: NITROGLYCERIN 200 MCG/2 ML SYRINGE FOR CATH/VASC LAB. IART ONE (12:00)
[2020-04-16] MEDS ORDERED: MIDAZOLAM HCL/PF 2 MG/2 ML VIAL. IV ONE (12:00)
[2020-04-16] MEDS ORDERED: IODIXANOL 320 MG/ML 100 ML VIAL. IART ONE (12:00)
[2020-04-16] MEDS ORDERED: LIDOCAINE 1% PF 2 ML VIAL. INJ ONE (12:00)
[2020-04-16] MEDS ORDERED: HEPARIN for IV BOLUS 10,000 UNIT/10 ML VIAL. IART ONE (12:00)
[2020-04-16] MEDS ORDERED: CONTRAST GIVEN. MC PRN (12:15)
--- NOTE | 2020-04-16 12:20 | HP ---
ADMIT DATE: CHIEF COMPLAINT: Chest pain. HISTORY OF PRESENT ILLNESS: The patient is a pleasant 74-year-old male well known to our service. He has known coronary artery disease. He has had stents x 3. Once again, he presented with chest pain, rated at 7/10. It has been occurring for 90 minutes. He feels like it is his heart and not reflux. He took some nitroglycerin and aspirin. I discussed the case with ER physician. Troponin is slightly high at 0.2. We are going to admit the patient, Cardiology is considering taking him to the [facility] today. PAST MEDICAL HISTORY: Coronary artery disease, 3 previous stents, hyperlipidemia, hypertension, shoulder surgery, erythrocytosis (he states this is from his testosterone shots). ALLERGIES: ERYTHROMYCIN AND ONDANSETRON. FAMILY HISTORY: Coronary artery disease. SOCIAL HISTORY: Does not drink or take drugs. He used to smoke. MEDICATIONS: Reviewed, please refer to the MRAD. PHYSICAL EXAMINATION: VITALS: Within normal limits and are stable. GENERAL: No apparent distress. Alert and oriented. HEENT: Normal cephalic atraumatic, external auditory canals are patent EYES: Extraocular muscles are intact, pupils are equally round and reactive to light and accommodation MUSCULOSKELETAL: Well developed, well nourished, good range of motion ENDOCRINE: No thyromegaly was palpated LYMPHATICS: No cervical chain or axillary nodes were noted HEMATOPOIETIC: No bruising NECK: Supple, no JVD, no thyromegaly was noted. LUNGS: Clear to auscultation in all lung perez without rhonchi or wheezing. HEART: RRR, S1, S2 present. Peripheral pulses intact, no obvious murmurs were noted. ABDOMEN: Soft, nontender. Positive bowel sounds no organomegaly, normal bowel sounds. EXTREMITIES: Without any cyanosis, clubbing, or edema. Pedal pulses intact, Homans sign is negative. NEUROLOGIC: Normal speech, normal tone. A & O x3, moves all extremities, no obvious focal deficits. PSYCHIATRIC: Normal affect, normal mood. Stable. SKIN: No ulcerations or rashes, good skin turgor, no jaundice. VASCULAR: Good capillary refill, neurovascular bundle appears to be intact. LABORATORY DATA: Troponin is 0.2. ASSESSMENT AND PLAN: Chest pain with known coronary artery disease. The patient has been admitted. We are doing, serial enzymes, serial EKGs. Consult Cardiology. Home meds, DVT prophylaxis. Full code. He will probably go the [facility] later today. PIETER JOHN DO DR: SABA/meka JOB#: [id number] / [id number]
--- NOTE | 2020-04-16 12:22 | NUR ---
SW following. Discussed with RN, pt from home with , room air, pt is fully ambulatory. 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 RN advised no SW needs at this time. SW will continue to follow.
[2020-04-16] MEDS ORDERED: BIVALIRUDIN 250 MG VIAL. IV ONE (12:32)
[2020-04-16] MEDS: BIVALIRUDIN 250 MG VIAL. IV ONE ×2 (12:37→12:52)
[2020-04-16] MEDS ORDERED: ASPIRIN 325 MG TABLET PO ONE (13:15)
[2020-04-16] MEDS ORDERED: PRASUGREL 10 MG TABLET. PO ONE (13:15)
[2020-04-16] MEDS ORDERED: ASPIRIN 325 MG TABLET ONE (13:18)
[2020-04-16] MEDS ORDERED: PRASUGREL 10 MG TABLET. ONE (13:18)
--- NOTE | 2020-04-16 13:42 | PDOC ---
MODERATE SEDATION ASSESSMENT RISKS/ALTERNATIVES Risks/Alternatives Risks and alternatives of this type of sedation and procedure discussed with: RISK/ALTERNATIVES: Patient H & P ON CHART H & P H & P on chart and reviewed for co-morbid conditions and appropriate labs. H&P ON CHART: Yes STATUS PREG STATUS ASSESSED: N/A MEDS/ALLERGIES REVIEWED Meds/Allergies Reviewed Medications and Allergies including time and route of recently administered narcotics and sedatives. MEDS/ALLERGIES REVIEWED: Yes ASA RATING ASA RATING: III AIRWAY ASSESSMENT Airway Assessment Airway patency, oral function limitations, presence of caps, crowns, dentures, partials, and ability to extend neck assessed. AIRWAY ASSESSMENT: Yes MALLAMPATI SCORE MALLAMPATI SCORE: II PRE-SEDATION ASSESSMENT PRE-SEDATION ASSESSMENT: Yes ACE GRAYSON MD Apr 16, 2020 13:42
[2020-04-16] MEDS ORDERED: IV 1/2 NORMAL SALINE 1,000 ML IV SCH (13:45)
[2020-04-16] MEDS ORDERED: 0.9 % SODIUM CHLORIDE 10 ML DISP.SYRIN. IV PRN (13:45)
[2020-04-16] MEDS ORDERED: ACETAMINOPHEN 325 MG TABLET. PO PRN (13:45)
--- NOTE | 2020-04-16 13:59 | CARD ---
MR#: [id number] Date of Study: 04/16/2020 Ordering Physician: ALVIN ALEXANDER, Referring Physician: ALVIN ALEXANDER, Tech: Adriane Mack APPROVED REPORT Technologist: Adriane Mack Nurse: Tiffany Cesar RN Procedure(s) performed: 1. Left heart catheterization and selective coronary angiography via right t ransradial approach 2. Successful PCI/drug-eluting stent placement to the left anterior descending artery and PTCA to th e diagonal branch fl time: 18.7 mins dose: 160 gycm2 contrast: 211 ml moderate sedation: 60 mins [facility] Clinical Frailty Scale [facility] Clinical Frailty Scale: Managing Well Heart Failure Heart Failure: No CASE TECHNIQUE IV conscious sedation was used throughout procedure with appropriate monitoring and was performed in the presence of a registered nurse who was an independent trained observer other than the physician p erforming the procedure. During this case, Fluoroscopy and low osmolar contrast were used for imaging . Specimen(s) Removed: No Estimated Blood loss: 15 cc's. PROCEDURE NARRATIVE After explaining the risks, benefits and alternative options, informed consent was obtained from jonathan ent. 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 Arterial access was obtained [facility] the [facility] t radial artery and a 6 [place] sheath was inserted. 6 [place] Deniz and 6 [place] JR4 catheters were u sed to perform selective angiography of the left and right coronary arteries. LVEDP and transaortic gradients were measured. Left ventriculography was not performed since patient had a recent echo helio t showed LVEF 25%. The following findings were noted. FINDINGS 1. Hemodynamics: Left ventricular end-diastolic pressure of 20 mmHg. No pullback gradient across th e aortic valve. 2. Coronary angiography: a. The left main coronary artery arose from the left sinus of Valsalva, gave rise to the left anteri or descending and left circumflex arteries and did not show any significant stenosis. b. The left anterior descending artery showed patent stent in the midsegment. Just proximal to the stent there was a 90 to 95% stenosis noted. The first diagonal branch showed a widely patent stent i n the proximal segment. c. The left circumflex artery showed 50% stenosis in a medium caliber second diagonal branch. d. The right coronary artery was a large and dominant vessel arising from the right sinus of Valsalv a that showed widely patent stent in the proximal to mid segment. INTERVENTION The left main coronary artery was engaged with a 6 [place] XB 3.5 guide catheter. The stenosis in the mid segment of the left anterior descending artery was crossed with a 0.014 inch [employer] guid ewire. This lesion was predilated sequentially with 3.0 x 12 mm Euphora followed by noncompliant 3.5 x 15 mm [employer] [place] Emerge balloons. Following this, the left anterior descending artery s tenosis was treated with a 4.0 x 20 mm [employer] Promus Elite drug-eluting stent that had to be deployed across the takeoff of the diagonal branch. The stent struts were then crossed into the d iagonal branch with a second 0.014 inch [employer] guidewire and the struts dilated with 3.0 x 8 mm noncompliant NC Euphora balloon. Follow-up angiography showed resolution of the lesion to 0% with LEXY-3 distal flow. Patient tolerated the procedure well. Hemostasis was achieved using TR band. There were no immediate complications. LEXY Flow LEXY Flow (Pre-Intervention): LEXY-2 LEXY Flow (Post-Intervention): LEXY-3 COMMENTS LAD LEXY Flow LEXY Flow (Pre-Intervention): LEXY-3 LEXY Flow (Post-Intervention): LEXY-3 COMMENTS 1ST DIAG Conclusion 1. 90 to 95% stenosis involving the mid segment of the left anterior descending artery. The previou sly placed stents in the left anterior descending artery, the diagonal branch and the right coronary artery were widely patent. 2. Successful PCI/drug-eluting stent placement to the left anterior descending artery and successful PTCA to the diagonal branch. Recommendations 1. Aspirin 325 mg daily for 1 month followed by 81 mg daily 2. Effient 10 mg daily 3. Cardiovascular risk factor modification Signed by : Jay Joel, Electronically Approved : 04/16/2020 13:59:08
[2020-04-16] MEDS: CARVEDILOL 3.125 MG TABLET. PO SCH (17:32)
[2020-04-16] MEDS ORDERED: ATORVASTATIN CALCIUM 40 MG TABLET. PO SCH (21:00)
[2020-04-17 03:45] VITALS: BP 106/58
[2020-04-17 07:00] VITALS: BP 124/84
[2020-04-17] MEDS ORDERED: ASPIRIN ENTERIC COATED 325 MG TABLET.DR. PO SCH (08:00)
[2020-04-17] MEDS ORDERED: PRASUGREL 10 MG TABLET. PO SCH (08:00)
[2020-04-17] MEDS: CARVEDILOL 3.125 MG TABLET. PO SCH (08:23)
[2020-04-17] MEDS ORDERED: LOSARTAN POTASSIUM 25 MG TABLET. PO SCH (09:00)
--- NOTE | 2020-04-17 09:57 | PDOC ---
[employer] [facility] PROGRESS NOTE Date of Service DOS: DATE: 04/17/20 TIME: 09:50 Chief Complaint Chief Complaint Chest Pain History of Present Illness History of Present Illness 04/17- Pt is pleasant sitting in the chair. Discussed plan with nurse for discharge later today. Talked about the Cath yesterday; pt stated he tolerated it well, was conscious throughout except for brief naps. Doctor told him he had a 95% occlusion of former stents in LAD, and did some branch work. Discussed high blood counts, and possible association with testosterone. Discussed risk modification of testosterone, anti-coagulation, aspirin, phlebotomy. Pt had sexual dysfunction AE while on plavix and felt loss of clarity while on aspirin; pt will be seeing if Effient will have a similar profile. Discussed need of phlebotomy resources, and if pt can continue to exercise now that he is post- stent 04/16 -patient very happy with his care here. 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 Mentioned elevated Hgb (19.8 on 04/16) and hematocrit (56.7). Pt takes Testosterone and believes this to be the cause as he has repeated phlebotomies. Pt denies smoking. Troponin was elevated today at 0.256, with creatinine of 1.2. Patient is a 74 y/o male that presented to the ED with chest pain and pain radiating to the left arm. Pt has a history of a STEMI in August 2016 and had 3 stents placed. In ED pt took some nitroglycerin which improved his symptoms. Denies any radiation into the neck, back. No associated nausea or vomiting. Denies any fever, chills, shortness of breath, dizziness or lightheadedness. Patient states feels similar to his prior [place] Chest x-ray showed a borderline enlarged heart. Vitals/I&O Vitals/I&O: Vital Signs Date Time Temp Pulse Resp B/P (MAP) Pulse Ox O2 Delivery O2 Flow Rate FiO2 04/17/20 08:23 90 124/84 04/17/20 08:00 Room Air 2.0 04/17/20 07:00 98.1 17 97 98.1 I & O 04/16/20 04/16/20 04/17/20 15:00 23:00 07:00 Intake Total 350 ml 1281 ml Output Total 775 ml Balance -775 ml 350 ml 1281 ml Physical Exam General: Alert, Oriented X3, Cooperative, No acute distress Heart: Regular rate (SR), Normal S1, Normal S2, No murmurs Lungs: Clear, Other Abdomen: Soft, No tenderness Extremities: No clubbing, No cyanosis, No edema Skin: No breakdown, No significant lesion Labs Labs: Laboratory Tests Test 04/16/20 10:40 Coronavirus (PCR) Not detected (Not Detected) SARS-CoV-2 Antigen (Rapid) Negative (NEGATIVE) Review of Systems Review of Systems: Denied SOB, new onset CP, No new complaints Assessment and Plan Assessmemt and Plan Assessment NSTEMI Status post cardiac cath with another new stent Chest pain with known coronary disease High Cholesterol Cardiac STENT x 4, BILATERAL SHOULDER Former Smoker Covid rapid and PCR tests negative Hep C diagnosis Polycythemia with mild thrombocytopenia erectile dysfunction, loss of libido Plan Probable discharge later today if okay with cardiology For now continue the following; Wound care I left a prescription for Effient Serial Enzymes, ECG (consider ck-mb) Cardiac monitoring F/O with PCP for reassessment of Testosterone use Discussed plan with staff DVT prophylaxis, continued meds after discharge Home meds Comment Review of Relevant I have reviewed the following items ujstina (where applicable) has been applied. Medications: Current Medications Medications (Trade) Dose Ordered Sig/Nancy Route PRN Reason Start Time Stop Time Status Last Admin Dose Admin Nitroglycerin (Nitroglycerin) 200 mcg 1X ONCE IART 04/16/20 12:00 04/16/20 12:03 DC 04/16/20 12:19 Verapamil HCl (Verapamil) 2.5 mg 1X ONCE IART 04/16/20 12:00 04/16/20 12:03 DC 04/16/20 12:19 Heparin Sodium (Porcine) (Heparin Sodium) 2,500 unit 1X ONCE IART 04/16/20 12:00 04/16/20 12:03 DC 04/16/20 12:19 Heparin Sodium/ Sodium Chloride (HEPARIN for ARTERIAL LINE FLUSH) 1,000 unit 1X ONCE IART 04/16/20 12:00 04/16/20 12:03 DC 04/16/20 12:00 Heparin Sodium/ Sodium Chloride (HEPARIN for ARTERIAL LINE FLUSH) 1,000 unit 1X ONCE IART 04/16/20 12:00 04/16/20 12:03 DC 04/16/20 12:00 Midazolam HCl (Versed) 2 mg 1X ONCE IV 04/16/20 12:00 04/16/20 12:03 DC 04/16/20 12:15 Fentanyl Citrate (Fentanyl 2ml Vial) 100 mcg 1X ONCE IV 04/16/20 12:00 04/16/20 12:03 DC 04/16/20 12:15 Iodixanol (Visipaque 320) 100 ml 1X ONCE IART 04/16/20 12:00 04/16/20 12:03 DC 04/16/20 13:07 Lidocaine HCl (Xylocaine-Mpf 1% 2ml Vial) 2 ml 1X ONCE INJ 04/16/20 12:00 04/16/20 12:03 DC 04/16/20 12:17 Bivalirudin (Angiomax) 250 mg 1X ONCE IV 04/16/20 13:00 04/16/20 13:01 DC 04/16/20 12:37 Prasugrel (Effient) 60 mg 1X ONCE PO 04/16/20 13:15 04/16/20 13:16 DC 04/16/20 13:15 Aspirin (Marni Aspirin) 325 mg 1X ONCE PO 04/16/20 13:15 04/16/20 13:16 DC 04/16/20 13:15 Sodium Chloride 1,000 ml @ 75 mls/hr [id number] IV 04/16/20 13:45 04/16/20 16:26 Aspirin (Ecotrin) 325 mg DAILYWBKFT PO 04/17/20 08:00 04/17/20 08:23 Prasugrel (Effient) 10 mg DAILYWBKFT PO 04/17/20 08:00 04/17/20 08:22 Atorvastatin Calcium (Lipitor) 40 mg QHS PO 04/16/20 21:00 04/16/20 21:23 Carvedilol (Coreg) 3.125 mg BIDWMEALS PO 04/16/20 17:00 04/17/20 08:23 Losartan Potassium (Cozaar) 25 mg DAILY PO 04/17/20 09:00 04/17/20 08:23 Justifications for Admission Other Justification PIETER JOHN III DO Apr 17, 2020 09:57
[2020-04-17 11:00] VITALS: BP 131/68
[2020-04-17] MEDS ORDERED: CARV3.12 PO (12:56)
[2020-04-17] MEDS ORDERED: PRAS10TA9 PO (12:56)
--- NOTE | 2020-04-17 13:31 | NUR ---
PATIENT DISCHARGED TO HOME. DISCHARGE INSTRUCTIONS GIVEN. PIV AND HEART MONITOR REMOVED. PATIENT OFF UNIT PER AMBULATION INTO A PRIVATE VEHICLE.
--- NOTE | 2020-04-17 13:33 | PDOC ---
CARDIOLOGY PROGRESS NOTE SUBJECTIVE: No chest pain OBJECTIVE: Vital Signs/I&O: Vital Signs Date Time Temp Pulse Resp B/P (MAP) Pulse Ox O2 Delivery O2 Flow Rate FiO2 04/17/20 11:00 99.1 74 17 131/68 (89) 97 Nasal Cannula 2.0 99.1 I & O 04/16/20 04/16/20 04/17/20 15:00 23:00 07:00 Intake Total 350 ml 1281 ml Output Total 775 ml Balance -775 ml 350 ml 1281 ml Objective: right radial artery site c/d/i GEN.: No apparent distress. Alert and oriented. HEENT: Head is normocephalic, atraumatic NECK: Supple. LUNGS: Clear to auscultation. HEART: RRR, S1, S2 present. Peripheral pulses intact ABDOMEN: Soft, nontender. Positive bowel sounds. EXTREMITIES: Without any cyanosis. NEUROLOGIC: Normal speech, normal tone PSYCHIATRIC: Normal affect, normal mood. SKIN: No ulcerations CURRENT MEDICATIONS: Current Medications Medications (Trade) Dose Ordered Sig/Nancy Route PRN Reason Start Time Stop Time Status Last Admin Dose Admin Sodium Chloride 1,000 ml @ 75 mls/hr [id number] IV 04/16/20 13:45 04/16/20 16:26 Aspirin (Ecotrin) 325 mg DAILYWBKFT PO 04/17/20 08:00 04/17/20 08:23 Prasugrel (Effient) 10 mg DAILYWBKFT PO 04/17/20 08:00 04/17/20 08:22 Atorvastatin Calcium (Lipitor) 40 mg QHS PO 04/16/20 21:00 04/16/20 21:23 Carvedilol (Coreg) 3.125 mg BIDWMEALS PO 04/16/20 17:00 04/17/20 08:23 Losartan Potassium (Cozaar) 25 mg DAILY PO 04/17/20 09:00 04/17/20 08:23 ASSESSMENT: 1. 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 Prior ICD in place 2. PSVT PLAN: 1. Plan for home on coreg, losartan, asa, prasugrel and statin. Supportive care. Thanks Justicifation of Admission Dx: Justifications for Admission: Justification of Admission Dx: N/A CON MASTERS MD Apr 17, 2020 13:33
== END 2020-04-17 13:33 | disposition home or self-care (01) | DRG 247 ==
LOC: ER 21:58 → 2 NORTH 23:52 → OBSVTOIN 04-16 00:12
PROVIDERS: ADMIT Family Medicine; ATTEND Family Medicine
PROC: B2111ZZ Fluoroscopy of Multiple Coronary Arteries using Low Osmolar Contrast (ICD-10-PCS; principal; 2020-04-16)
PROC: 027034Z Dilation of Coronary Artery, One Artery with Drug-eluting Intraluminal Device, Percutaneous Approach (ICD-10-PCS; 2020-04-16)
PROC: 02703ZZ Dilation of Coronary Artery, One Artery, Percutaneous Approach (ICD-10-PCS; 2020-04-16)
PROC: 4A023N7 Measurement of Cardiac Sampling and Pressure, Left Heart, Percutaneous Approach (ICD-10-PCS; 2020-04-16)
DX: I21.4 Non-ST elevation (NSTEMI) myocardial infarction (principal); I50.22 Chronic systolic (congestive) heart failure; I47.1 Supraventricular tachycardia; B19.20 Unspecified viral hepatitis C without hepatic coma; D69.6 Thrombocytopenia, unspecified; D75.1 Secondary polycythemia; E78.00 Pure hypercholesterolemia, unspecified; E78.5 Hyperlipidemia, unspecified; I11.0 Hypertensive heart disease with heart failure; I25.10 Atherosclerotic heart disease of native coronary artery without angina pectoris; I25.2 Old myocardial infarction; I25.5 Ischemic cardiomyopathy; I48.0 Paroxysmal atrial fibrillation; N40.1 Benign prostatic hyperplasia with lower urinary tract symptoms; Z82.49 Family history of ischemic heart disease and other diseases of the circulatory system; Z87.891 Personal history of nicotine dependence; Z95.5 Presence of coronary angioplasty implant and graft; Z95.810 Presence of automatic (implantable) cardiac defibrillator; K21.9 Gastro-esophageal reflux disease without esophagitis; Z88.1 Allergy status to other antibiotic agents; Z88.8 Allergy status to other drugs, medicaments and biological substances; Z20.822 Contact with and (suspected) exposure to COVID-19
CPT/HCPCS: 36415; 71045; 80053; 80061; 81001; 83690; 83735; 83880; 84443; 84484; 85025; 87426; 92921; 92928; 93005; 93458; 99152; 99153; C1725; C1769; C1887; C1894; G0379; J0583; J0780; J1644; J2250; J2270; J3010; J3490; J7030; Q9967; U0003; C1874; G0378

== ENCOUNTER → 2021-03-09 | Outpatient (CLI) | payer BC, MEDICARE ==
[~2021-03-09] MED LIST changes: +CARV3.12 PO; -LISI-517 PO; +LISI5TAB15 PO; +LOSA-362 PO; +MONT-38 PO; +PANT40TA6 PO; +PRAS10TA9 PO
--- NOTE | 2021-03-09 16:46 | CARD ---
MR#: [id number] Date of Study: 03/09/2021 Ordering Physician: ACE JOEL, Referring Physician: ACE JOEL, Tech: Lizbeth Yun [facility] APPROVED REPORT EXAM: Two-dimensional and M-mode echocardiogram with Doppler and color Doppler. Other Information Quality : AverageHR: 68bpm INDICATION Congestive Heart Failure Surgery/Intervention Pacemaker: Date: 2016 RISK FACTORS Hypertension 2D DIMENSIONS Left Atrium(2D)3.9 (1.6-4.0cm)IVSd1.0 (0.7-1.1cm) Aortic Root(2D)3.4 (2.0-3.7cm)LVDd6.4 (3.9-5.9cm) LVOT Diameter2.1 (1.8-2.4cm)PWd1.3 (0.7-1.1cm) LVDs4.7 (2.5-4.0cm)FS (%) 27.5 % SV110.1 mlLVEF(%)42.4 (>50%) Aortic Valve AoV Peak Reji.124.9cm/sAoV VTI25.1cm AO Peak GR.6.2mmHgLVOT Peak Reji.98.8cm/s LVOT VTI 20.21cmAO Mean GR.4mmHg SARI (VMAX)1.43bv6MEF (VTI)2.77cm2 Mitral Valve MV E Hwshramg86.7cm/sMV DECEL EVRD362ug MV A Sbwzfthb76.3cm/sMV E Mean Gr.2mmHg MV KZX03gqX/A Ratio1.0 MVA (PHT)3.17cm2 TDI E/Lateral E'11.8E/Medial E'16.8 Pulmonary Valve PV Peak Rlumaovo47.6cm/sPV Peak Grad.4mmHg Tricuspid Valve TR P. Vazcwkwk363de/sRAP [id number] TR Peak Gr.24vmSeCWIP11hlBh Pulmonary Vein S1 Osjbdcsw74.5cm/sD2 Efcdzvno25.2cm/s PVa [id number] LEFT VENTRICLE The Left Ventricle is moderately dilated. There is borderline to mild concentric left ventricular hyp ertrophy. The left ventricular systolic function is moderately impaired. The Ejection Fraction is 35% . Transmitral Doppler flow pattern is Grade II-pseudonormal filling dynamics. RIGHT VENTRICLE The right ventricle is mildly dilated. There is normal right ventricular wall thickness. The right ve ntricular systolic function is normal. There is a pacemaker lead in the right ventricle and atrium. ATRIA The left atrium size is normal. The right atrium is mildly dilated. The interatrial septum is intact with no evidence for an atrial septal defect or patent foramen ovale as noted on 2-D or Doppler imagi ng. AORTIC VALVE The aortic valve is thickened but opens well. Doppler and Color Flow revealed trace aortic regurgitat ion. There is no significant aortic valvular stenosis. Calculated aortic valve area is 2.09 cm2 with maximum pressure gradient of 9 mmHg and mean pressure gradient of 5 mmHg. MITRAL VALVE The mitral valve is normal in structure and function. There is no evidence of mitral valve prolapse. There is no mitral valve stenosis. Doppler and Color-flow revealed trace mitral regurgitation. TRICUSPID VALVE The tricuspid valve is normal in structure and function. Doppler and Color Flow revealed trace tricus pid regurgitation with an estimated PAP of 32 mmHg. There is no tricuspid valve stenosis. PULMONIC VALVE The pulmonic valve is not well visualized. Doppler and Color Flow revealed trace pulmonic valvular re gurgitation. GREAT VESSELS The aortic root is normal in size. The IVC is normal in size and collapses >50% with inspiration. PERICARDIAL EFFUSION There is no evidence of significant pericardial effusion. Critical Notification Critical Value: No <Conclusion> The left ventricular systolic function is moderately impaired. The Ejection Fraction is estimated at 35%. Transmitral Doppler flow pattern is Grade II-pseudonormal filling dynamics. Pacer/ICD lead noted RA/RV. Trace mitral regurgitation. Trace tricuspid regurgitation with an estimated PAP of 32 mmHg. There is no evidence of significant pericardial effusion. Signed by : Ace Joel, Electronically Approved : 03/09/2021 16:46:13
== END ==
LOC: ECHO 13:53
PROVIDERS: ATTEND Internal Medicine Cardiovascular Disease
DX: I35.0 Nonrheumatic aortic (valve) stenosis (principal); I51.7 Cardiomegaly; I50.22 Chronic systolic (congestive) heart failure; Z95.0 Presence of cardiac pacemaker
CPT/HCPCS: 93306

== ENCOUNTER → 2021-05-10 | Outpatient (CLI) | payer BC ==
--- NOTE | 2021-05-10 11:48 | RAD ---
MR#: [id number] Date of Study: 05/10/2021 Ordering Physician: CON MASTERS, Referring Physician: CON MASTERS, Tech: Harvey Davenport MBA, RDMS, RVT, RDCS, RTR APPROVED REPORT Patient Location : OUT-PATIENT Indications VENOUS INSUFFICIENCY Greater Saphenous Veins (GSV) Significant venous relux noted in the LEFT GSV at the following levels : Superficial Femoral Junction , Proximal Thigh, Mid Thigh, Distal Thigh, Proximal Calf, Mid Calf, Distal Calf Lesser Saphenous Veins (LSV) Significant venous reflux is noted in the Left LSV. Perforators Thigh Perforators Calf Perforators Left: cm up from medial heel 5cm back from the anterior border of tibia 3 diameter 3.2mm. Findings Limited grayscale images of the bilateral saphenofemoral junctions are grossly unremarkable. The right great saphenous vein and lesser saphenous veins do not demonstrate any evidence of reflux. The left great saphenous vein measures 4.5 mm and has a maximum reflux time of 1.5 seconds. The left lesser saphenous vein measures 1.8 mm and does not show any significant evidence of reflux Critical Notification Critical Value: No <Conclusion> 1. Minimal reflux in the left greater saphenous vein. Signed by : Con Masters, Electronically Approved : 05/10/2021 11:47:44
== END ==
LOC: US 10:30
PROVIDERS: ATTEND Internal Medicine Cardiovascular Disease
DX: I87.2 Venous insufficiency (chronic) (peripheral) (principal)
CPT/HCPCS: 93970